=== PATIENT | female | born 1970 | race Hispanic/Latino ===

== ENCOUNTER 2016-10-21 21:18 | Observation (INO) | payer MEDICARE, OTHER ==
[2016-10-21 21:27] VITALS: BMI 36.1
--- NOTE | 2016-10-21 21:49 | ED PDOC ---
Arrival/HPI - General Time Seen by Provider: 10/21/16 21:22 Historian: Patient - History of Present Illness Narrative History of Present Illness (Text): 10/21/16 21:43 Jesenia Iglesias is a 46 year old female, with a history of pacemaker, hypertension, and vertigo, presents to the emergency department for evaluation of chest pain and palpitations which began earlier today. States that she was playing with her dog when the chest pain presented, which radiated along the right arm. Also complains of pain to right 2nd metacarpophalangeal joint, which is worsened with movement. States that presented to an urgent care for headache and was started started on Augmentin for sinusitis. Denies any trauma to hand. Denies any headache, dizziness, difficulty breathing, vomiting, diarrhea, urinary symptoms, or any other complaints at this time. PMD: Time/Duration: Other (earlier today ) Symptom Onset: Gradual Severity Level: Mild Activities at Onset: Light Context: Home Past Medical History - Provider Review Nursing Documentation Reviewed: Yes - Past History Past History: No Previous - Infectious Disease Hx of Infectious Diseases: None - Tetanus Immunization Tetanus Immunization: Unknown - Cardiac Hx Pacemaker: Yes - Pulmonary Hx Respiratory Disorders: No Hx Asthma: No Hx Bronchitis: No Hx Chronic Obstructive Pulmonary Disease (COPD): No Hx Emphysema: No Hx Pneumonia: No Hx Sleep Apnea: No - Neurological Hx Paralysis: No - HEENT Hx HEENT Disorder: Yes (chronic sinusitis) Hx Blind: No Hx Cataracts: No Hx Deafness: No Hx Difficulty Chewing: No Hx Epistaxis: No Hx Glaucoma: No Hx Macular Degeneration: No - Renal Hx Renal Disorder: No Hx Kidney Stones: No - Endocrine/Metabolic Hx Endocrine Disorders: No Hx Diabetes Mellitus Type 1: No Hx Diabetes Mellitus Type 2: No - Hematological/Oncological Hx Blood Transfusions: Yes Hx Blood Transfusion Reaction: No - Integumentary Hx Dermatological Disorder: No Hx Basal Cell Carcinoma: No Hx Eczema: No Hx Melanoma: No Hx Psoriasis: No Hx Squamous Cell Carcinoma: No - Musculoskeletal/Rheumatological Hx Musculoskeletal Disorders: Yes (FIBROMYALGIA) - Gastrointestinal Hx Gastrointestinal Disorders: Yes (irritable bowel) Hx Crohn's Disease: No Hx Diverticulitis: No Hx Gall Bladder Disease: No Hx Gastroesophageal Reflux: Yes Hx Pancreatitis: No - Genitourinary/Gynecological Hx Genitourinary Disorders: Yes (endometriosis) Hx Sexually Transmitted Diseases: No Hx Urinary Tract Infection: Yes (recurrent, dysuria) - Psychiatric Hx Emotional Abuse: No Hx Physical Abuse: No Hx Substance Use: No - Surgical History Hx Cardiac Catheterization: Yes (2008) - Anesthesia Hx Anesthesia Reactions: No Hx Malignant Hyperthermia: No - Suicidal Assessment Feels Threatened In Home Enviroment: No Family/Social History - Physician Review Nursing Documentation Reviewed: Yes Family/Social History: No Known Family HX Smoking Status: Former Smoker Hx Alcohol Use: No Hx Substance Use: No Hx Substance Use Treatment: No Allergies/Home Meds Allergies/Adverse Reactions: Allergies gabapentin Allergy (Verified 04/17/16 15:04) RASH metoclopramide HCl [From Reglan] Allergy (Verified 04/17/16 15:04) ANGIOEDEMA trimethobenzamide HCl [From Tigan] Allergy (Verified 04/17/16 15:04) ANGIOEDEMA Home Medications: Home Meds Medication Instructions Recorded Confirmed Levetiracetam [Keppra] 500 mg PO TID 06/01/15 10/22/16 Oxycodone HCl/Acetaminophen 1 tab PO QID PRN 06/01/15 10/22/16 [Percocet 325 mg-10 mg] PARoxetine [Paxil] 20 mg PO DAILY 06/01/15 10/22/16 clonazePAM [clonAZEPAM] 1 mg PO QID 06/01/15 10/22/16 Pregabalin [Lyrica] 75 mg PO TID 11/12/15 10/22/16 Acetaminophen/Butalbital/Caf 1 tab PO PRN PRN 04/17/16 10/22/16 [Fioricet] Omeprazole Magnesium [Prilosec Otc] 40 mg PO DAILY 04/17/16 10/22/16 Ibuprofen [Motrin Tab] 800 mg PO Q8 PRN 07/11/16 10/22/16 Cyclobenzaprine [Cyclobenzaprine 10 mg PO PRN PRN 10/22/16 10/22/16 HCl] Review of Systems - Physician Review All systems were reviewed & negative as marked: Yes - Review of Systems Constitutional: Normal. absent: Fatigue, Fevers Respiratory: Normal. absent: SOB, Cough Cardiovascular: Chest Pain, Palpitations Gastrointestinal: Nausea. absent: Diarrhea, Vomiting Genitourinary Female: Normal Musculoskeletal: Other (pain to second MCP. ) Neurological: Normal. absent: Headache, Dizziness Psychiatric: Normal Physical Exam Vital Signs Reviewed: Yes Vital Signs Temp Pulse Pulse Resp BP Pulse Ox 10/22/16 01:27 72 16 146/80 99 10/21/16 23:30 70 17 152/76 H 99 10/21/16 22:07 76 10/21/16 21:54 70 20 175/99 H 100 10/21/16 21:50 98.3 F Temperature: Afebrile Blood Pressure: Normal Pulse: Regular Respiratory Rate: Normal Appearance: Positive for: Well-Appearing, Non-Toxic, Comfortable Pain Distress: None Mental Status: Positive for: Alert and Oriented X 3 - Systems Exam Head: Present: Atraumatic, Normocephalic Pupils: Present: PERRL Extroacular Muscles: Present: EOMI Conjunctiva: Present: Normal Ears: Present: Normal Pharnyx: Present: Normal Nose (External): Present: Atraumatic Nose (Internal): Present: Normal Inspection Neck: Present: Normal Range of Motion Respiratory/Chest: Present: Clear to Auscultation, Good Air Exchange. No: Respiratory Distress, Accessory Muscle Use Cardiovascular: Present: Regular Rate and Rhythm, Normal S1, S2. No: Murmurs Abdomen: Present: Normal Bowel Sounds. No: Tenderness, Distention, Peritoneal Signs Upper Extremity: Present: NORMAL PULSES, Neurovascularly Intact, Other ( ecchymosis to 2nd MCP. ). No: Cyanosis, Edema, Erythema, Deformity Lower Extremity: Present: Normal Inspection. No: Edema Neurological: Present: GCS=15, CN II-XII Intact, Speech Normal, Motor Func Grossly Intact, Normal Sensory Function Skin: Present: Warm, Dry, Normal Color. No: Rashes Lymphatic: No: Cervical Adenopathy Psychiatric: Present: Alert, Oriented x 3, Normal Insight, Normal Concentration Medical Decision Making ED Course and Treatment: 10/21/16 21:59 Impression: A 46 year old female who presents to the emergency department complaining of chest pain radiating down right arm since earlier today. Plan: -- EKG -- Labs, cardiac enzymes -- Right hand X-ray -- Urinalysis Progress Notes: 10/21/16 21:30 EKG interpreted by me: NSR @ 87 bpm. possible left atrial enlargement. Left ventricular hypertrophy. X-Ray interpreted by me: Negative for any acute fracture. 10/22/16 01:05 Case discussed with who is aware and agrees with the plan to admit patient to telemetry for chest pain. Accepts patient under his service with on cardiology consult. - Lab Interpretations Lab Results: 10/21/16 22:00 10/21/16 22:00 Lab Results 10/21/16 22:20: Urine HCG, Qual Negative 10/21/16 22:00: Sodium 138, Potassium 3.6, Chloride 102, Carbon Dioxide 25, Anion Gap 15, BUN 16, Creatinine 0.8, Est GFR ( Amer) > 60, Est GFR (Non- Af Amer) > 60, Random Glucose 108, Calcium 9.0, Magnesium 2.0, Total Bilirubin 0.5, AST 42 H, ALT 58 H, Alkaline Phosphatase 99, Lactate Dehydrogenase 401, Total Creatine Kinase 93, Troponin I < 0.01, Total Protein 8.7 H, Albumin 4.4, Globulin 4.2, Albumin/Globulin Ratio 1.0 L 10/21/16 22:00: Urine Color Yellow, Urine Appearance Clear, Urine pH 6.0, Ur Specific [place] 1.025, Urine Protein 30 H, Urine Glucose (UA) Negative, Urine Ketones Negative, Urine Blood Trace-intact H, Urine Nitrate Negative, Urine Bilirubin Negative, Urine Urobilinogen 1.0 H, Ur Leukocyte Esterase Negative, Urine RBC 2 - 5, Urine WBC 0 - 2, Ur Epithelial Cells Many, Amorphous Sediment Few, Urine Bacteria Few 10/21/16 22:00: PT 10.4, INR 0.96, APTT 25.7, D-Dimer, Quantitative 0.21 10/21/16 22:00: WBC 11.3 H, RBC 5.92, Hgb 11.8 L, Hct 35.7 L, MCV 60.3 L, MCH 19.9 L, MCHC 33.1, RDW 17.6 H, Plt Count 326, MPV 9.2, Gran % 58.7, Lymph % ( Auto) 34.1, Millard % (Auto) 6.1 H, Eos % (Auto) 0.7 L, Baso % (Auto) 0.4, Gran # 6.66 H, Lymph # 3.9 H, Millard # 0.7 H, Eos # 0.1, Baso # 0.04 I have reviewed the lab results: Yes - RAD Interpretation Radiology Orders: 10/21/16 21:48 HAND RIGHT 3 VIEWS [RAD] Stat 10/21/16 22:58 CHEST ONE VIEW [RAD] Stat Transportation Dispatcher: Radiologist - EKG Interpretation Interpreted by ED Physician: Yes Type: 12 lead EKG - Medication Orders Current Medication Orders: Acetaminophen (Tylenol 325mg Tab) 650 mg PO Q4H PRN PRN Reason: Fever >100.5 F Discontinued Medications Clonazepam (Klonopin) 1 mg PO STAT STA PRN Reason: Protocol Stop: 10/22/16 02:35 Ketorolac Tromethamine (Toradol) 30 mg IVP ONCE ONE Stop: 10/21/16 22:54 Last Admin: 10/21/16 23:13 Dose: 30 mg Morphine Sulfate (Morphine) 2 mg IVP STAT STA Stop: 10/22/16 00:57 Last Admin: 10/22/16 01:25 Dose: 2 mg - Toyinibe Statement The provider has reviewed the documentation as recorded by the Simi Sauer Provider Attestation: All medical record entries made by the Simi were at my direction and personally dictated by me. I have reviewed the chart and agree that the record accurately reflects my personal performance of the history, physical exam, medical decision making, and the department course for this patient. I have also personally directed, reviewed, and agree with the discharge instructions and disposition. Disposition/Present on Arrival - Present on Arrival Any Indicators Present on Arrival: No History of DVT/PE: No History of Uncontrolled Diabetes: No Urinary Catheter: No History Surgical Site Infection Following: None - Disposition Have Diagnosis and Disposition been Completed?: Yes Diagnosis: Chest pain Disposition: HOSPITALIZED Disposition Time: :00 Condition: GOOD
[2016-10-21 22:08] LABS: ADD MANUAL DIFF? NO
[2016-10-21 22:13] LABS: BASO # 0.04 K/mm3 (0.0-2.0); BASO % 0.4 % (0.0-3.0); EOS # 0.1 (0.0-0.7); EOS % 0.7 % (1.5-5.0); GRAN # 6.66 (1.4-6.5); GRAN % 58.7 % (50.0-68.0); HEMATOCRIT 35.7 % (36.0-48.0); LYMPH # 3.9 (1.2-3.4); LYMPH % 34.1 % (22.0-35.0); MEAN CELL VOLUME 60.3 fL (80.0-105.0); MEAN CORPUSCULAR HEMOGLOBIN 19.9 pg (25.0-35.0); MEAN CORPUSCULAR HGB CONC 33.1 g/dl (31.0-37.0); MEAN PLATELET VOLUME 9.2 fl (7.0-11.0); MONO # 0.7 (0.1-0.6); MONO % 6.1 % (1.0-6.0); PLATELET COUNT 326 10^3/uL (120.0-450.0); RED CELL DISTRIBUTION WIDTH 17.6 % (11.5-14.5); WHITE BLOOD COUNT 11.3 10^3/ul (4.5-11.0)
[2016-10-21 22:16] LABS: URINE BILIRUBIN NEGATIVE (NEGATIVE); URINE BLOOD TRACE-INTACT (NEGATIVE); URINE GLUCOSE (UA) NEGATIVE (NEGATIVE); URINE KETONE NEGATIVE (NEGATIVE); URINE LEUKOCYTE ESTERASE NEGATIVE Leu/uL (NEGATIVE); URINE PROTEIN 30 mg/dL (<30 mg/dL)
[2016-10-21 22:18] LABS: URINE APPEARANCE CLEAR (CLEAR); URINE COLOR YELLOW (YELLOW)
[2016-10-21 22:23] LABS: ALKALINE PHOSPHATASE 99 U/L (38-133); ALT/SGPT 58 U/L (7-56); AST/SGOT 42 U/L (15-39); BILIRUBIN,TOTAL 0.5 mg/dL (0.2-1.3); BLOOD UREA NITROGEN 16 mg/dL (7-21); CARBON DIOXIDE 25 mmol/L (21-33); CHLORIDE 102 mmol/L (98-107); GFR AFRICAN-AMERICAN > 60; GLUCOSE,RANDOM 108 mg/dL (70-110); POTASSIUM 3.6 mmol/L (3.6-5.0); SODIUM 138 mmol/L (132-148); TOTAL PROTEIN 8.7 g/dL (5.8-8.3)
[2016-10-21 22:25] LABS: INR 0.96 (0.93-1.08); PARTIAL THROMBOPLASTIN TIME 25.7 Seconds (23.7-30.8)
[2016-10-21 22:33] LABS: D DIMER 0.21 mg/L FEU (0-0.50)
[2016-10-21 22:39] LABS: TROPONIN I < 0.01 ng/mL; URINE AMORPHOUS SEDIMENT FEW; URINE BACTERIA FEW (NEG); URINE EPITHELIAL CELLS MANY /hpf (0-5); URINE WBC 0 - 2 /hpf (0-6)
[2016-10-22] MEDS ORDERED: Morphine 2 mg/ml ISec IVP STA (00:56)
[2016-10-22 02:53] VITALS: RESP 20
[2016-10-22 05:38] VITALS: O2SAT 95
[2016-10-22] MEDS ORDERED: Apap-Butalbital-Caffeine 325-50-40mg Tab PO PRN (06:12)
[2016-10-22] MEDS ORDERED: Oxycodone/Acetaminophen 10/325 mg Tab PO PRN (06:12)
--- NOTE | 2016-10-22 07:07 | RAD ---
PROCEDURE: Right Hand Radiographs. HISTORY: pain COMPARISON: None. FINDINGS: BONES: Normal. No fracture. JOINTS: Minimal distal interphalangeal joint narrowing suggestive. No significant appearing spurring appreciated. No erosions noted No osteoarthritic changes. SOFT TISSUES: Normal. OTHER FINDINGS: None. IMPRESSION: Findings consistent with early mild degenerative changes -joint-space narrowing. No fracture bone destruction. No erosions appreciated
--- NOTE | 2016-10-22 07:15 | RAD ---
PROCEDURE: CHEST RADIOGRAPH, 1 VIEW HISTORY: pain COMPARISON: 07/06/2016 FINDINGS: LUNGS: Clear. Shallow lung volumes PLEURA: No pneumothorax or pleural fluid seen. CARDIOVASCULAR: Limited assessment given shallow lung volumes - OSSEOUS STRUCTURES: No significant abnormalities. VISUALIZED UPPER ABDOMEN: Normal. OTHER FINDINGS: Two lead pacemaker device. Anterior cervical fusion hardware IMPRESSION: No active disease.
[2016-10-22 09:48] LABS: TROPONIN I 0.01 ng/mL
--- NOTE | 2016-10-22 12:59 | CARD ---
APPROVED REPORT EKG Measurement Heart [id number] <Conclusion> Normal sinus rhythm Possible Left atrial enlargement Left ventricular hypertrophy Abnormal ECG
[2016-10-22 21:30] VITALS: BP 165/76; PULSE 78; TEMP 98.4
--- NOTE | 2016-10-23 00:11 | HP ---
CHIEF COMPLAINT AND HISTORY OF PRESENT ILLNESS: This is a 46-year-old female, who came in complainin g of chest pain. She says that she was having chest tightness that gets better and gets worse. She sometimes has palpitations. She has been recently treated with steroids and antibiotics for congesti on. She had missed her medication and missed her appointment on Thursday. She says that she does not have her home medications. She has been to an urgent care center because of headaches. She says she also has sinus symptoms. She has no nausea. No vomiting. No dysuria, frequency. No nocturia. REVIEW OF SYMPTOMS: All other review of systems are within normal limits except as mentioned. ALLERGIES: METOCLOPRAMIDE, GABAPENTIN, TIGAN. HOME MEDICATIONS: Keppra, Percocet, Paxil, clonazepam, Lyrica, Fioricet, Prilosec, Motrin, cyclobenz aprine. SOCIAL HISTORY: She is a former smoker. She denies alcohol or drug abuse. PAST MEDICAL HISTORY: Fibromyalgia, pacemaker, spinal stenosis, frequent UTIs, chronic sinusitis, , irritable bowel sy ndrome, endometriosis, depression, anxiety, plantar fasciitis. PAST SURGICAL HISTORY: 1. Cardiac cath. 2. Appendectomy. 3. Neck surgery. 4. Back surgery. 5. Foot surgery. 6. Right oophorectomy. 7. Cervical fusions at C3, C4, C5, C6, C7. 8. Left knee surgery . PHYSICAL EXAMINATION: VITAL SIGNS: She has a temperature of , pulse is 72, blood pressure is 137/7 . Height is 5 feet 2 inches. Weight 214 pounds. BMI 35. GENERAL: Patient lying in bed, flat, and in no apparent distress. HEAD AND NECK EXAM: Atraumatic, normocephalic. Conjunctivae are pink. Throat clear and mouth with moist mucosa. Oropharynx benign. EYES: Extraocular movements are intact. PERRLA. NECK: Supple. No JVD, thyromegaly, or adenopathy. No bruits. HEART: S1 and S2 regular rate and rhythm. No murmurs, rubs, or gallops. LUNGS: Clear to auscultation bilaterally. No wheezing rales or rhonchi appreciated. No retraction s on exam. ABDOMEN: Soft, nontender, nondistended. Bowel sounds are positive in all quadrants. No rebound. No hepatosplenomegaly. EXTREMITIES: No cyanosis, clubbing, or edema. NEURO: No facial asymmetry, tongue is midline, no uvula deviation. Power is 5/5 in upper extremity and 5/5 in lower extremity. Sensation is normal in upper extremity and lower extremity. PSYCH: Awake, alert, oriented x3. No anxiety or depression symptoms. Good insight. Normal affec t. : No CVA tenderness VASCULAR: 2+ pulses in carotid and pedal pulses. SKIN: No erythema or abnormal nodules noted. SPINE: Normal curvature. LYMPHADENOPATHY: No anterior cervical or posterior cervical adenopathy. No inguinal adenopathy. LABORATORY DATA: She has a white count of 11.3, hemoglobin 11.8. INR is 0.96. Chemistry shows a so dium of 138, potassium 3.6, creatinine 0.8. She has an LDL of 162. Triglycerides 338. Urine shows ketones are negative, blood is trace, nitrites are negative. X-ray of the hand shows findings consistent with early, mild degenerative joint narrowing. EKG shows sinus rhythm at 87 with left ventricular hypertrophy. Chest x-ray shows no active disease. ASSESSMENT: 1. Chest pain, atypical. 2. Fibromyalgia. 3. Chronic sinusitis. 4. Irritable bowel syndrome. 5. Anxiety. 6. Pacemaker. 7. Anemia with a history of thalassemia. PLAN: The patient has been on clonazepam. She is on Lipitor for dyslipidemia. She is on Lyrica. S he is going to continue with Paxil. She is receiving Tylenol as needed. I gave her a prescription f or Percocet for 2 weeks. I also called in her prescriptions to her pharmacy. She is going to follow up in the office in 1-2 weeks. She is going to be discharged home. I did speak to Dr. Faye. He cl eared the patient to be discharged. Labs were reviewed. Felice Zuleta MD cc: [id number] TT: 10/23/2016 00:09:55 tn
--- NOTE | 2016-10-23 00:56 | CON ---
DATE: 10/22/2016 REASON FOR CONSULTATION AND FOLLOWUP: Chest pain. History of nonobstructive coronary artery disease status post recent cath status post pacemaker. BRIEF CLINICAL HISTORY: The patient is a 46-year-old female with a past medical history significant for seizure disorder, hypertension, chronic back pain, history of cervical radiculopathy, history of cervical plating in 2000, endometriosis, migraine, anxiety disorder, spinal stenosis, chronic bronchi tis, chronic urinary tract infection, CVA, history of pacemaker a year ago at [facility], admitted with dizziness and a complaint of chest pain, complains of sharp chest pain, left shoul rogelio and right side of the chest as well. PAST MEDICAL HISTORY: Significant for seizure disorder, chronic pain in the body, chronic dizziness, hypertension, cervical and lumbar radiculopathy, status post cervical plating in 2000, intermittent migraine, anxiety disorder, recurrent UTIs, CVA, chronic bronchitis, sinusitis, status post permanent pacemaker, history of spinal stenosis, fibromyalgia, history of pacemaker interrogation recently in 06/2016 found to have normal functioning pacemaker, no evidence of syncope, no evidence of arrhythmia , history of pacemaker a year ago at [facility]. PREVIOUS CARDIAC WORKUP: As follows. Most recently, the patient had a cardiac catheterization, 06/29 that showed nonobstructive coronary artery disease, mild to moderate dizziness, mid LAD proxim al, RCA moderate disease in the ramus 55%, preserved LV function, essentially nonobstructive coronary artery disease. The patient had a stress test 07/10/2016 that was suspicious for ischemia the led t o the cardiac catheterization, ejection fraction of 64% reported. The patient had echocardiography 0 08/28/2014 that shows a normal ejection fraction within normal limits. SOCIAL HISTORY: Denies smoking. Denies any history of alcohol abuse. CURRENT MEDICATIONS: The patient is taking Paxil, clonazepam, Lyrica, acetaminophen, Prilosec, Keppr a, Motrin, cyclobenzaprine, albuterol, Fioricet. REVIEW OF SYSTEMS: As per HPI. PHYSICAL EXAMINATION: VITAL SIGNS: Temperature afebrile, heart rate 72, blood pressure 137/73. HEENT: PERRLA. Extraocular muscles intact. NECK: Supple. No carotid bruits. No thyromegaly. CHEST: Clear to auscultation. HEART: S1, S2 regular. ABDOMEN: Soft. EXTREMITIES: Clubbing and cyanosis negative. LABORATORY DATA: Blood workup as follows: WBC , hemoglobin 11.8, hematocrit 35.7, platelet cou nt 326. Chemistry shows sodium 138, potassium 3.7, chloride , BUN 16, creatinine 0.8. Troponin 0.01 x 2. IMPRESSION: Atypical chest pain, multiple medical problems, history of chronic sinusitis, UTI, sever e cervical radiculopathy, status post cardiac catheterization recently dated 07/14/2016, nonobstructi ve coronary artery disease, preserved left ventricular function, history of permanent pacemaker at [facility], recent interrogation pacemaker, normal function and reported. RECOMMENDATION: We will add third sets of troponin. We will add lipid profile, TSH, hemoglobin A1c. Further recommendation after the blood workup. We will get a TSH also and hemoglobin A1c. If the troponin remains negative, we will discontinue telemetry. Sam Faye MD cc: [id number] TT: 10/23/2016 00:55:30 Confirmation # [id number] Dictation # [id number] mn
== END 2016-10-22 20:10 | disposition home or self-care (01) ==
LOC: ED 21:18 → ERH 10-22 00:34 → 2RSO 10-22 02:03
PROVIDERS: ADMIT Internal Medicine Nephrology; ATTEND Internal Medicine Nephrology
DX: R07.89 Other chest pain (principal); K58.9 Irritable bowel syndrome, unspecified; I25.10 Atherosclerotic heart disease of native coronary artery without angina pectoris; D56.9 Thalassemia, unspecified; E78.5 Hyperlipidemia, unspecified; M72.2 Plantar fascial fibromatosis; M48.02 Spinal stenosis, cervical region; F32.9 Major depressive disorder, single episode, unspecified; G40.909 Epilepsy, unspecified, not intractable, without status epilepticus; M54.16 Radiculopathy, lumbar region; J32.9 Chronic sinusitis, unspecified; M79.7 Fibromyalgia; M54.12 Radiculopathy, cervical region; F41.9 Anxiety disorder, unspecified; G43.909 Migraine, unspecified, not intractable, without status migrainosus; Z87.891 Personal history of nicotine dependence; Z95.0 Presence of cardiac pacemaker
CPT/HCPCS: 36415; 71010; 73130; 80053; 80061; 81001; 82550; 83036; 83615; 83735; 84443; 84484; 84703; 85025; 85378; 85610; 85730; 93005; 96374; 99285; G0378; J1885; J2270; J2405

== ENCOUNTER 2016-12-04 19:07 | Observation (INO) | payer MEDICARE, OTHER ==
[2016-12-04 19:22] VITALS: BMI 35.7
[2016-12-04] MEDS ORDERED: Morphine 4 mg/ml ISec IVP STA (20:21)
[2016-12-04] MEDS ORDERED: Sodium Chloride 0.9% 1,000 ML IV STA (20:23)
[2016-12-04 20:40] LABS: ADD MANUAL DIFF? NO
[2016-12-04 20:50] LABS: BASO # 0.02 K/mm3 (0.0-2.0); BASO % 0.2 % (0.0-3.0); EOS # 0.2 (0.0-0.7); EOS % 2.1 % (1.5-5.0); GRAN % 42.1 % (50.0-68.0); HEMATOCRIT 33.6 % (36.0-48.0); LYMPH % 48.9 % (22.0-35.0); MEAN CELL VOLUME 60.8 fL (80.0-105.0); MEAN CORPUSCULAR HEMOGLOBIN 19.7 pg (25.0-35.0); MEAN CORPUSCULAR HGB CONC 32.4 g/dl (31.0-37.0); MONO # 0.5 (0.1-0.6); MONO % 6.7 % (1.0-6.0); PH,URINE 6.5 (4.7-8.0); PLATELET COUNT 305 10^3/uL (120.0-450.0); URINE BILIRUBIN NEGATIVE (NEGATIVE); URINE BLOOD NEGATIVE (NEGATIVE); URINE GLUCOSE (UA) NEGATIVE (NEGATIVE); URINE KETONE NEGATIVE (NEGATIVE); URINE LEUKOCYTE ESTERASE NEGATIVE Leu/uL (NEGATIVE); URINE PROTEIN NEGATIVE mg/dL (<30 mg/dL); URINE UROBILINOGEN 0.2 E.U./dL (<1 E.U./dL); WHITE BLOOD COUNT 8.1 10^3/ul (4.5-11.0)
[2016-12-04 20:54] LABS: ALB/GLOB RATIO 1.1 (1.1-1.8); ALKALINE PHOSPHATASE 86 U/L (38-133); ALT/SGPT 53 U/L (7-56); AST/SGOT 49 U/L (15-39); BILIRUBIN,TOTAL 0.3 mg/dL (0.2-1.3); BLOOD UREA NITROGEN 14 mg/dL (7-21); CALCIUM 9.1 mg/dL (8.4-10.5); CARBON DIOXIDE 23 mmol/L (21-33); CHLORIDE 105 mmol/L (98-107); GFR AFRICAN-AMERICAN > 60; GLUCOSE,RANDOM 82 mg/dL (70-110); MAGNESIUM 1.9 mg/dL (1.7-2.2); POTASSIUM 3.8 mmol/L (3.6-5.0); SODIUM 137 mmol/L (132-148); TOTAL PROTEIN 7.8 g/dL (5.8-8.3)
[2016-12-04 20:56] LABS: URINE APPEARANCE CLEAR (CLEAR); URINE COLOR YELLOW (YELLOW)
[2016-12-04 21:12] LABS: TROPONIN I < 0.01 ng/mL
--- NOTE | 2016-12-04 23:29 | CT ---
EXAM: CT Head Without Intravenous Contrast CLINICAL HISTORY: 46 years old, female; Pain; Headache TECHNIQUE: Axial computed tomography images of the head/brain without intravenous contrast. This CT exam was performed using one or more of the following dose reduction techniques: automated exposure control, adjustment of the mA and/or kV according to patient size, and/or use of iterative reconstruction technique. COMPARISON: CT - HEAD W/O CONTRAST 07/06/2016 4:31:25 PM FINDINGS: Brain: No intracranial hemorrhage. No mass. No definite edema. Ventricles: No hydrocephalus. Bones/joints: No calvarial fracture. Soft tissues: Unremarkable. Mastoid air cells: No mastoid effusion. IMPRESSION: 1. No acute intracranial abnormality. 2. See sinus CT report for additional details. 3. Incidental/non-acute findings are described above.
--- NOTE | 2016-12-04 23:30 | CT ---
EXAM: CT Maxillofacial Sinuses Without Intravenous Contrast CLINICAL HISTORY: 46 years old, female; Pain; Face pain TECHNIQUE: Computed tomography images of the maxillofacial sinuses without intravenous contrast. This CT exam was performed using one or more of the following dose reduction techniques: automated exposure control, adjustment of the mA and/or kV according to patient size, and/or use of iterative reconstruction technique. Coronal and sagittal reformatted images were created and reviewed. COMPARISON: No relevant prior studies available. FINDINGS: Maxillary sinuses: Unremarkable. No air-fluid levels. Sphenoid sinuses: Unremarkable. No air-fluid levels. Frontal sinuses: Unremarkable. No air-fluid levels. Ethmoid air cells: Unremarkable. No air-fluid levels. Nasal cavity/septum: No acute findings. Bones/joints: No acute fracture. Soft tissues: Unremarkable. Orbits: Unremarkable as visualized. IMPRESSION: 1.No acute findings. 2.Non-acute findings are described above.
[2016-12-04] MEDS ORDERED: Sodium Chloride 0.9% 1,000 ML IV SCH (23:45)
--- NOTE | 2016-12-04 23:55 | ED PDOC ---
Arrival/HPI - General Chief Complaint: Dizziness/Lightheaded Time Seen by Provider: 12/04/16 19:52 Historian: Patient - History of Present Illness Narrative History of Present Illness (Text): 12/05/16 00:20 Jesenia Iglesias is a 46 year old female, with a history of seizures on Keppra and Klonopin, presents to the emergency department complaining following a syncopal episode at 3 pm today. Patient states that she was walking out of the bathroom when she began feeling room-spinning sensation and dizzy. Patient woke up on the floor after feeling dizzy and does not recall the events that transpired after. She complains of a headache and thinks she may have hit her head during the fall. States that symptoms this time are different from previous episodes of seizures as she does not feel dizzy before seizing. Informs she has flu-like symptoms 2-3 weeks ago and was diagnosed with UTI and sinusitis by PMD. She finished a course of antibiotics prescribed by her PMD. Currently patient is complaining of frontal head pressure, nasal congestion, nausea and dysuria. Denies any fever, chills, chest pain, shortness of breath, abdominal pain, vomiting, diarrhea, or any other complaints at this time. 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: Time/Duration: Other (3 pm today ) Symptom Onset: Sudden Symptom Course: Improving Severity Level: Mild Activities at Onset: Light Past Medical History - Provider Review Nursing Documentation Reviewed: Yes - Past History Past History: No Previous - Infectious Disease Hx of Infectious Diseases: None - Tetanus Immunization Tetanus Immunization: Unknown - Cardiac Hx Pacemaker: Yes - Pulmonary Hx Respiratory Disorders: No Hx Asthma: No Hx Bronchitis: No Hx Chronic Obstructive Pulmonary Disease (COPD): No Hx Emphysema: No Hx Pneumonia: No Hx Sleep Apnea: No - Neurological Hx Paralysis: No - HEENT Hx HEENT Disorder: Yes (chronic sinusitis) Hx Blind: No Hx Cataracts: No Hx Deafness: No Hx Difficulty Chewing: No Hx Epistaxis: No Hx Glaucoma: No Hx Macular Degeneration: No - Renal Hx Renal Disorder: No Hx Kidney Stones: No - Endocrine/Metabolic Hx Endocrine Disorders: No Hx Diabetes Mellitus Type 1: No Hx Diabetes Mellitus Type 2: No - Hematological/Oncological Hx Blood Transfusions: Yes Hx Blood Transfusion Reaction: No - Integumentary Hx Dermatological Disorder: No Hx Basal Cell Carcinoma: No Hx Eczema: No Hx Melanoma: No Hx Psoriasis: No Hx Squamous Cell Carcinoma: No - Musculoskeletal/Rheumatological Hx Musculoskeletal Disorders: Yes (FIBROMYALGIA) - Gastrointestinal Hx Gastrointestinal Disorders: Yes (irritable bowel) Hx Crohn's Disease: No Hx Diverticulitis: No Hx Gall Bladder Disease: No Hx Gastroesophageal Reflux: Yes Hx Pancreatitis: No - Genitourinary/Gynecological Hx Genitourinary Disorders: Yes (endometriosis) Hx Sexually Transmitted Diseases: No Hx Urinary Tract Infection: Yes (recurrent, dysuria) - Psychiatric Hx Emotional Abuse: No Hx Physical Abuse: No Hx Substance Use: No - Surgical History Hx Cardiac Catheterization: Yes (2008) - Anesthesia Hx Anesthesia Reactions: No Hx Malignant Hyperthermia: No - Suicidal Assessment Feels Threatened In Home Enviroment: No Family/Social History - Physician Review Nursing Documentation Reviewed: Yes Family/Social History: No Known Family HX Smoking Status: Former Smoker Hx Alcohol Use: No Hx Substance Use: No Hx Substance Use Treatment: No Allergies/Home Meds Allergies/Adverse Reactions: Allergies gabapentin Allergy (Verified 04/17/16 15:04) RASH metoclopramide HCl [From Reglan] Allergy (Verified 04/17/16 15:04) ANGIOEDEMA trimethobenzamide HCl [From Tigan] Allergy (Verified 04/17/16 15:04) ANGIOEDEMA Home Medications: Home Meds Medication Instructions Recorded Confirmed Levetiracetam [Keppra] 500 mg PO TID 06/01/15 10/22/16 Oxycodone HCl/Acetaminophen 1 tab PO QID PRN 06/01/15 10/22/16 [Percocet 325 mg-10 mg] PARoxetine [Paxil] 20 mg PO DAILY 06/01/15 10/22/16 clonazePAM [clonAZEPAM] 1 mg PO QID 06/01/15 10/22/16 Pregabalin [Lyrica] 75 mg PO TID 11/12/15 10/22/16 Acetaminophen/Butalbital/Caf 1 tab PO PRN PRN 04/17/16 10/22/16 [Fioricet] Omeprazole Magnesium [Prilosec Otc] 40 mg PO DAILY 04/17/16 10/22/16 Ibuprofen [Motrin Tab] 800 mg PO Q8 PRN 07/11/16 10/22/16 Cyclobenzaprine [Cyclobenzaprine 10 mg PO PRN PRN 10/22/16 10/22/16 HCl] Review of Systems - Physician Review All systems were reviewed & negative as marked: Yes - Review of Systems Constitutional: Normal. absent: Fatigue, Fevers ENT: Other (nasal congestion ) Respiratory: absent: SOB, Cough, Sputum Cardiovascular: Syncope. absent: Chest Pain, Palpitations Gastrointestinal: Nausea. absent: Abdominal Pain, Vomiting, Appetite Changes Genitourinary Female: Dysuria. absent: Frequency Neurological: Headache, Dizziness Psychiatric: Normal Physical Exam Vital Signs Reviewed: Yes Vital Signs Temp Pulse Resp BP Pulse Ox 12/04/16 23:53 61 16 129/77 99 12/04/16 20:15 60 16 126/76 99 12/04/16 19:08 97.9 F 64 16 151/73 H 99 Temperature: Afebrile Blood Pressure: Normal Pulse: Regular Respiratory Rate: Normal Appearance: Positive for: Well-Appearing, Non-Toxic, Comfortable Pain Distress: Mild Mental Status: Positive for: Alert and Oriented X 3 - Systems Exam Head: Present: Atraumatic, Normocephalic, Tenderness (frontal maxillary sinus tenderness ) Pupils: Present: PERRL Extroacular Muscles: Present: EOMI Conjunctiva: Present: Normal Mouth: Present: Dry Neck: Present: Normal Range of Motion. No: MIDLINE TENDERNESS, Paraspinal Tenderness Respiratory/Chest: Present: Clear to Auscultation, Good Air Exchange. No: Respiratory Distress, Accessory Muscle Use Cardiovascular: Present: Regular Rate and Rhythm, Normal S1, S2. No: Murmurs Abdomen: Present: Normal Bowel Sounds. No: Tenderness, Distention, Peritoneal Signs Upper Extremity: Present: Normal Inspection. No: Cyanosis, Edema Lower Extremity: Present: Normal Inspection. No: Edema Neurological: Present: GCS=15, Speech Normal, Other (horizontal nystagmus ) Skin: Present: Warm, Dry, Normal Color. No: Rashes Psychiatric: Present: Alert, Oriented x 3, Normal Insight, Normal Concentration Medical Decision Making ED Course and Treatment: Impression: A 46 year old female who presents to the emergency department complaining of dizziness and syncope. Plan: -- EKG -- CT Head -- Labs, cardiac enzymes -- Chest X-ray -- Morphine -- IV fluids -- Urine culture -- Reassess and disposition Progress Notes: EKG: Electronic ventricular paced rhythm at 80 bpm, as read by PA. CXR : NAD, as read by PA CT head and CT sinuses show no acute findings, especially no sinusitis. Laboratory results reviewed, Hgb 10.9 / Hct 33.6, trop negative. Diagnostic results discussed with the patient in great detail. On reevaluation, patient is laying in bed comfortably in no acute distress. Patient continues to complain of mild headache and facial pain. Vital signs are stable. Patient given a dose of Toradol IV, IV fluids continued. Based on history, exam and diagnostic results plan will be for inpatient telemetry observation. Patient states she fully agrees with and understands the current plan of care. I have given the patient opportunity to ask any additional questions. Case d/w Dr. Zuleta, agrees with plan for inpatient observation telemetry. Bridge orders placed, consult placed to Dr. Licona. - Lab Interpretations Lab Results: 12/04/16 20:20 12/04/16 20:20 Lab Results 12/04/16 20:20: Sodium 137, Potassium 3.8, Chloride 105, Carbon Dioxide 23, Anion Gap 13, BUN 14, Creatinine 0.8, Est GFR ( Amer) > 60, Est GFR (Non- Af Amer) > 60, Random Glucose 82, Calcium 9.1, Magnesium 1.9, Total Bilirubin 0.3, AST 49 H, ALT 53, Alkaline Phosphatase 86, Lactate Dehydrogenase 374, Total Creatine Kinase 108, Troponin I < 0.01, Total Protein 7.8, Albumin 4.2, Globulin 3.7, Albumin/Globulin Ratio 1.1 12/04/16 20:20: Urine Color Yellow, Urine Appearance Clear, Urine pH 6.5, Ur Specific Midnight <= 1.005, Urine Protein Negative, Urine Glucose (UA) Negative, Urine Ketones Negative, Urine Blood Negative, Urine Nitrate Negative, Urine Bilirubin Negative, Urine Urobilinogen 0.2, Ur Leukocyte Esterase Negative 12/04/16 20:20: WBC 8.1 D, RBC 5.53, Hgb 10.9 L, Hct 33.6 L, MCV 60.8 L, MCH 19.7 L, MCHC 32.4, RDW 17.0 H, Plt Count 305, Gran % 42.1 L, Lymph % (Auto) 48.9 H, [place] % (Auto) 6.7 H, Eos % (Auto) 2.1, Baso % (Auto) 0.2, Gran # 3.40, Lymph # 4.0 H, [place] # 0.5, Eos # 0.2, Baso # 0.02 - RAD Interpretation Narrative RAD Interpretations (Text): 12/04/16 23:32 CT head w/o contrast: COMPARISON: CT - HEAD W/O CONTRAST 07/06/2016 4:31:25 PM FINDINGS: Brain: No intracranial hemorrhage. No mass. No definite edema. Ventricles: No hydrocephalus. Bones/joints: No calvarial fracture. Soft tissues: Unremarkable. Mastoid air cells: No mastoid effusion. IMPRESSION: 1. No acute intracranial abnormality. 2. See sinus CT report for additional details. 3. Incidental/non-acute findings are described above. Dictated and Authenticated by: Karthik Sutherland MD 12/04/2016 11:28 PM Eastern Time ([place] & [place]) CT sinuses w/o contrast: COMPARISON: No relevant prior studies available. FINDINGS: Maxillary sinuses: Unremarkable. No air-fluid levels. Sphenoid sinuses: Unremarkable. No air-fluid levels. Frontal sinuses: Unremarkable. No air-fluid levels. Ethmoid air cells: Unremarkable. No air-fluid levels. Nasal cavity/septum: No acute findings. Bones/joints: No acute fracture. Soft tissues: Unremarkable. Orbits: Unremarkable as visualized. IMPRESSION: 1. No acute findings. 2. Non-acute findings are described above. Dictated and Authenticated by: Karthik Sutherland MD 12/04/2016 11:30 PM Eastern Time ([place] & [place]) Radiology Orders: 12/04/16 19:53 HEAD W/O CONTRAST [CT] Stat 12/04/16 20:21 CHEST PORTABLE [RAD] Stat 12/04/16 20:23 SINUSES W/O CONTRAST [CT] Stat - Medication Orders Current Medication Orders: Sodium Chloride (Sodium Chloride 0.9%) 1,000 mls @ 100 mls/hr IV .Q10H ARTEMIO Last Admin: 12/05/16 01:53 Dose: 100 mls/hr Discontinued Medications Sodium Chloride (Sodium Chloride 0.9%) 1,000 mls @ 1,000 mls/hr IV .Q1H STA Stop: 12/04/16 21:22 Last Admin: 12/04/16 20:38 Dose: 1,000 mls/hr Ketorolac Tromethamine (Toradol) 30 mg IVP STAT STA Stop: 12/04/16 23:34 Last Admin: 12/05/16 00:52 Dose: 30 mg Morphine Sulfate (Morphine) 4 mg IVP STAT STA Stop: 12/04/16 20:22 Last Admin: 12/04/16 20:39 Dose: 4 mg - PA / ASSIGNMENT DESK ASSISTANT / Resident Statement MD/DO has reviewed & agrees with the documentation as recorded. Disposition/Present on Arrival - Present on Arrival Any Indicators Present on Arrival: No History of DVT/PE: No History of Uncontrolled Diabetes: No Urinary Catheter: No History of Decub. Ulcer: No History Surgical Site Infection Following: None - Disposition Have Diagnosis and Disposition been Completed?: Yes Diagnosis: Dizziness, Syncope Disposition: HOSPITALIZED Disposition Time: 23:45 Patient Plan: Observation (telemetry) Patient Problems: Current Active Problems Problem Status Onset Dizziness Acute Condition: STABLE
--- NOTE | 2016-12-05 03:53 | CP.PCM.PN ---
Subjective - Date & Time of Evaluation Date of Evaluation: 12/05/16 Time of Evaluation: 03:52 - Subjective Subjective: Patient was seen at bedside.Complained of headache, neck pain, all body pain, states that she has chronic pain problem and takes multiple pain medications at home, has metal plate in back of head and neck, can not sleep now because of pain and requests pain medication. Has received morphine and toradol earlier . Medical record was reviewed. This 46 year old white woman was admitted after she had a syncopal episode yesterday with dizziness. Has PMH of Seizure , HTN, CAD, chronic pain, chronic dizziness, cervical / Lumbar radiculopathy, CVA, migraines, UTI, anxiety, S/P PPM, chronic bronchitis , sinusitis, spinal stenosis. Objective - Vital Signs/Intake and Output Vital Signs (last 24 hours): Temp Pulse Resp BP Pulse Ox 97.9 F 60 14 146/81 97 12/04/16 19:08 12/05/16 02:45 12/05/16 02:45 12/05/16 02:45 12/05/16 02:45 - Medications Medications: Current Medications Sodium Chloride (Sodium Chloride 0.9%) 1,000 mls @ 100 mls/hr IV .Q10H ARTEMIO Last Admin: 12/05/16 01:53 Dose: 100 mls/hr - Constitutional Appears: Well, In Acute Distress - Head Exam Head Exam: ATRAUMATIC, NORMAL INSPECTION, NORMOCEPHALIC - Eye Exam Eye Exam: Normal appearance - ENT Exam ENT Exam: TM's Normal Bilaterally - Neck Exam Neck Exam: Normal Inspection - Respiratory Exam Respiratory Exam: NORMAL BREATHING PATTERN - Cardiovascular Exam Cardiovascular Exam: absent: JVD - GI/Abdominal Exam GI & Abdominal Exam: absent: Distended - Rectal Exam Rectal Exam: Deferred - Extremities Exam Extremities Exam: Normal Inspection - Back Exam Back Exam: NORMAL INSPECTION - Neurological Exam Neurological Exam: Alert, Awake - Psychiatric Exam Psychiatric exam: Normal Affect, Normal Mood - Skin Skin Exam: Normal Color Assessment and Plan - Assessment and Plan (Free Text) Assessment: Headache. Cervical pain. Body aches. Chronic sinusitis. Cervical/Lumbar radiculopathy. HTN. CAD. S/P PPM. Spinal stenosis. Chronic migraines. Seizures. Plan: Percocet 325/10 I PO stat. Continue present management.
[2016-12-05] MEDS ORDERED: Oxycodone/Acetaminophen 10/325 mg Tab PO STA (04:02)
[2016-12-05] MEDS: Pantoprazole 40 mg EC Tab PO SCH (06:31)
--- NOTE | 2016-12-05 09:14 | RAD ---
HISTORY: dizziness COMPARISON: 10/21/2016 FINDINGS: LUNGS: No active pulmonary disease. PLEURA: No significant pleural effusion identified, no pneumothorax apparent. CARDIOVASCULAR: Normal. OSSEOUS STRUCTURES: No significant abnormalities. VISUALIZED UPPER ABDOMEN: Normal. OTHER FINDINGS: Dual lead pacemaker IMPRESSION: No active disease.
[2016-12-05] MEDS: Oxycodone/Acetaminophen 10/325 mg Tab PO PRN ×2 (09:52→22:13)
--- NOTE | 2016-12-05 10:25 | HP ---
CHIEF COMPLAINT AND HISTORY OF PRESENT ILLNESS: This is a 46-year-old female who is coming in to the hospital complaining of dizziness and lightheadedness. She has a history of seizures; she is on Kep pra. She said that she had 3 episodes of syncope prior to coming into the Emergency Room. She says the room was spinning, she felt dizzy. She says that she woke up and she was on the floor after bein g dizzy. She does not recall the events. She did not come into the Emergency Room after the first 2 episodes and came in after the 3rd. She has been complaining of flu-like symptoms with congestion a nd sinusitis. She overuses antibiotics frequently and has been warned about the frequent use of anti biotics and complications that it can cause. She states that she was walking out of the bathroom whe n she began feeling this spinning sensation. She also complains of a pressure in the frontal area. She says she has nasal congestion, she has nausea. She denies any fevers or chills, no chest pain, n o shortness of breath, no abdominal pain, no diarrhea, no fevers. She feels weak and fatigued. She has muscle pain at times. REVIEW OF SYSTEMS: All of the review of symptoms are within normal limits except as mentioned. ALLERGIES: SHE HAS ALLERGIES TO GABAPENTIN, METOCLOPRAMIDE, AND TRIMETHOBENZAMIDE. MEDICATIONS: Keppra, Percocet, Paxil, clonazepam, Lyrica, Fioricet, Prilosec, ibuprofen. PAST MEDICAL HISTORY: 1. Pacemaker. 2. Fibromyalgia. 3. Spinal stenosis. 4. Frequent UTI. 5. Chronic sinusitis. 6. Irritable bowel syndrome. 7. Endometriosis. 8. Depression. 9. Anxiety. 10. Plantar fasciitis. PAST SURGICAL HISTORY: Cardiac cath, appendectomy, neck surgery, back surgery, foot surgery, right o ophorectomy; cervical fusion of C3, C4, C5, C6, C7; left knee surgery. PHYSICAL EXAMINATION: VITAL SIGNS: His temperature is 98.1, pulse of 95, blood pressure 156/80, respirations 20, O2 satura tion 97%. GENERAL: Patient lying in bed, flat, and in no apparent distress. HEAD AND NECK EXAM: Atraumatic, normocephalic. Conjunctivae are pink. Throat clear and mouth with moist mucosa. Oropharynx benign. EYES: Extraocular movements are intact. PERRLA. NECK: Supple. No JVD, thyromegaly, or adenopathy. No bruits. HEART: S1 and S2 regular rate and rhythm. No murmurs, rubs, or gallops. LUNGS: Clear to auscultation bilaterally. No wheezing rales or rhonchi appreciated. No retraction s on exam. ABDOMEN: Soft, nontender, nondistended. Bowel sounds are positive in all quadrants. No rebound. No hepatosplenomegaly. EXTREMITIES: No cyanosis, clubbing, or edema. NEURO: No facial asymmetry, tongue is midline, no uvula deviation. Power is 5/5 in upper extremity and 5/5 in lower extremity. Sensation is normal in upper extremity and lower extremity. PSYCH: Awake, alert, oriented x3. No anxiety or depression symptoms. Good insight. Normal affec t. : No CVA tenderness VASCULAR: 2+ pulses in carotid and pedal pulses. SKIN: No erythema or abnormal nodules noted. SPINE: Normal curvature. LYMPHADENOPATHY: No anterior cervical or posterior cervical adenopathy. No inguinal adenopathy. LABORATORY DATA: White count of 8.1, hemoglobin is 10.9, platelet count is 305. Chemistry shows a s odium of 137, potassium is 3.8. Troponin 0.01. Urine shows ketones are negative, blood is negative, nitrites are negative. CT of the head done shows no acute intracranial abnormalities. CT of the sinuses shows the maxillary sinus has minimal mucosal thickening, no air fluid levels, no o ther signs of sinusitis on the CAT scan. EKG shows a paced rhythm at 80. ASSESSMENT: 1. Syncope. 2. Fibromyalgia. 3. Irritable bowel syndrome. 4. Anxiety. 5. Pacemaker. 6. Anemia secondary to history of thalassemia. 7. Spinal stenosis with chronic back pain and neck pain. 8. Depression. 9. Migraine headaches. PLAN: The patient is currently comfortable. She is on Keppra for seizures; this will be continued. I will get Dr. Licona to evaluate this patient. She is on Lyrica. The patient is on ibuprofen as n eeded. She is on Paxil for her depression; this will be continued. She was given IV fluids. I will discontinue the patient's IV fluids. She is on Percocet as needed. I will also get Dr. Sims to e valuate the patient. Felice Zuleta MD cc: [id number] TT: 12/05/2016 10:24:16 mn
--- NOTE | 2016-12-05 10:40 | CARD ---
APPROVED REPORT EKG Measurement Heart [id number] <Conclusion> Electronic ventricular pacemaker: 100% AV paced, new
--- NOTE | 2016-12-05 11:45 | CON ---
DATE: 12/05/2016 SERVICE: Cardiology. REASON FOR CONSULTATION: Syncope, cardiac evaluation. BRIEF CLINICAL HISTORY: A 46-year-old female with past medical history significant for seizure disor rogelio, hypertension, chronic back pain, history of chronic cervical radiculopathy, history of cervical plating in 2000, endometriosis, migraine, anxiety disorder, spinal stenosis, chronic bronchitis, electrophysiology technologist chris urinary tract infection, CVA, history of pacemaker 1 year ago at [facility], admi tted. The patient said that she had syncopized while she was standing, suddenly fell backward, leg w ent up and complete loss of consciousness. Her godson and goddaughter both were at home. They are 1 5 and 21 years old, they called the ambulance and started shaking themselves and called the ambulance . The patient has no further recollection. When she woke up, she was on the floor. Denies any ches t pain, denies any palpitation, denies any aura, denies any seizure activity. PAST MEDICAL HISTORY: Significant for seizure disorder, chronic pain in the body, dizziness, hyperte nsion, cervical and lumbar radiculopathy, status post cervical plating in 2000, intermittent migraine s, anxiety disorder, recurrent UTIs, CVA, chronic bronchitis, sinusitis, status post permanent pacema ker, history of spinal stenosis, fibromyalgia, history of pacemaker interrogation in 06/2016, found to have a normal functioning pacemaker, no evidence of arrhythmia, history of pacemaker a year ago at [facility], a [employer] pacemaker. Previous cardiac workup as follows: Most recently, patient had cardiac catheterization on 07/14/2016 that shows nonobstructive coronary artery disease, mild to moderate luminal irregularity, mild proxim al LAD disease, moderate disease in the RCA, ramus intermedius 55%, preserved LV function, essentiall y nonobstructive coronary artery disease. The patient had a stress test 07/10/2016 suspicious for isc hemia that prompted the cardiac catheterization. The patient had echocardiography 08/28/2014 that show s normal ejection fraction within normal limits here and later on patient had an echo done in Dr. Banegas's office. SOCIAL HISTORY: Denies smoking. Denies any history of alcohol abuse. CURRENT MEDICATIONS: The patient is taking Paxil, clonazepam, Lyrica, acetaminophen, Prilosec, Keppr a, Motrin, cyclobenzaprine, albuterol, Fioricet. REVIEW OF SYSTEMS: A 14-point review of systems is negative except as per HPI. PHYSICAL EXAMINATION: VITAL SIGNS: Temperature afebrile, heart rate 65, blood pressure 132/69. HEENT: PERRLA. Extraocular muscles intact. NECK: Supple. No carotid bruit or thyromegaly. CHEST: Clear to auscultation. HEART: S1, S2 regular. ABDOMEN: Soft. EXTREMITIES: Clubbing and cyanosis negative. EKG shows a V-paced rhythm, underlying, normal sinus. Blood workup as follows: WBC 8.1, hemoglobin 10.9, hematocrit 33.6, platelet count 305. Chemistry s hows sodium 137, potassium 3.8, chloride 105, carbon dioxide 23, anion gap of 13, BUN 14, creatinine 0.8. Troponin 0.01. IMPRESSION: No evidence of acute myocardial infarction, history of syncope, rule out seizure, rule o ut arrhythmia, history of cervical radiculopathy, history of migraine, history of cervical plating in 2000, history of permanent pacemaker a year ago, history of cardiac catheterization 07/14/2016, nonob structive coronary artery disease, limited only to ramus intermedius, otherwise preserved left ventri cular function, essentially nonobstructive, history of recent echo, no significant valvular heart dis ease, history of pacemaker, last interrogation of pacemaker in 06/2016 found to be normal functioning, cervical and lumbar radiculopathy, history of transient ischemic attack, history of recurrent urinar y tract infection, intermittent migraines. RECOMMENDATION: Orthostatic hypotension, will check pacemaker interrogation. Neuro evaluation to ru le out seizure. No invasive cardiac workup is planned at this time except we will check pacemaker an d orthostatics. Further recommendations after the pacemaker interrogation. Will follow with you. Thank you, Dr. Zuleta, for providing the opportunity in taking care of the patient. Sam Faye MD cc: [id number] TT: 12/05/2016 11:44:52 Confirmation # [id number] Dictation # [id number]
--- NOTE | 2016-12-05 17:29 | CON ---
DATE: 12/05/2016 CHIEF COMPLAINT: Syncope. HISTORY OF PRESENT ILLNESS: A 46-year-old woman, with history of questionable seizure disorder on Ke ppra 500 mg p.o. t.i.d., is well known to our practice, with hypertension, chronic pain syndrome, aiden ni, anxiety, pacemaker, chronic bronchitis, chronic UTIs, history of sinusitis, history of myofas cial pain syndrome, who came and said that she was dizzy in terms of the room spinning and felt light headed as if she was going to pass out and woke up on the floor. She has had multiple episodes in past. She is on for neuropathic pain as well as . Orthostatic vital signs did show angel t lying was 191/83 and then sitting was 152/79 and standing was 146/85, so there is a mild orthostati c component to this. Otherwise, no focal weakness in the extremities. She is moving all extremities without any difficulty. REVIEW OF SYSTEMS: A 14-point review of systems is negative except in HPI. ALLERGIES: GABAPENTIN, METOCLOPRAMIDE, TRIMETHOBENZAMIDE. MEDICATIONS: Reviewed via nursing reconciliation sheet. PAST MEDICAL HISTORY: Pacemaker, fibromyalgia, myofascial pain syndrome, spinal stenosis, chronic ba ck pain, chronic neck pain, irritable bowel syndrome, chronic sinusitis, frequent UTIs, endometriosis , depression, anxiety, plantar fasciitis, history of questionable seizure disorder. PAST SURGICAL HISTORY: History of cervical fusion of C3, C4, C5, C6 and C7; history of neck surgery, cardiac catheterization, appendectomy. PHYSICAL EXAMINATION: VITAL SIGNS: Temperature afebrile, pulse rate of 65, blood pressure 132/69, respiratory rate 21, oxy gen 97% on room air. GENERAL: The patient is sitting up in bed in no acute distress. HEENT: Atraumatic, normocephalic. PERRLA. Extraocular muscles intact. NECK: Supple, no JVD, no adenopathy noted. LUNGS: Clear to auscultation. No adventitious sounds. HEART: S1, S2, normal rate and rhythm. No murmurs, rubs, or gallops. ABDOMEN: Soft, nontender, nondistended. Bowel sounds present. EXTREMITIES: No clubbing, no cyanosis. Peripheral pulses 2+ felt bilaterally. NEUROLOGIC: The patient is alert and oriented to person, place, month and year. Speech is fluent, w ithout any errors. Cranial nerves II through XII are intact. MOTOR: Moves all extremities equally. Toes downgoing bilaterally. Increased tone throughout. SENSORY: Light touch, pinprick, proprioception, vibration intact. DTRs are 2+ throughout. COORDINATION: [id number] intact. GAIT: Deferred for now. LABORATORIES: Sodium 137, potassium 3.8, chloride 105, carbon dioxide 23, BUN of 14, creatinine 0.8. Random glucose 82. ASSESSMENT AND PLAN: This is a 46-year-old woman with history of myofascial pain syndrome, chronic u rinary tract infections, chronic sinusitis, migraine headaches, anxiety, endometriosis, hypertension, pacemaker, history of questionable seizure disorder on Keppra 500 t.i.d., had a syncopal event, had vertigo episode prior to the syncopal event likely secondary to a vasovagal type nature with transien t orthostatic drop in blood pressure, which is evident on her orthostatic changes. 1. At this time, we will keep her on Keppra 500 p.o. t.i.d. This is unlikely a seizure disorder com pletely. 2. Keep her on Lyrica 75 p.o. t.i.d. for neuropathic pain and avoid any sedative medications. 3. Get better control of blood pressure, between 130 and 140, and avoid sudden drops. Continue with current present management. Thank you for this consult. Please reconsult if necessary. Leonides Sims MD cc: [id number] TT: 12/05/2016 17:28:24 Confirmation # [id number] Dictation # [id number]
--- NOTE | 2016-12-05 19:19 | CON ---
DATE: 12/05/2016 REASON FOR DICTATION: Addendum to initial dictated this morning. REASON FOR ADDENDUM: The patient underwent a [employer] pacemaker, is a dual chamber pacemaker with r ate drop features that mentioned the patient drop rate from 100-60, but never dropped below 60. No evidence of any arrhythmia, no evidence of ventricular tachycardia, ventricular fibrillation or atrial fibrillation noted recently. The patient had a fast rate August and as mentioned, this p acemaker has a rate drop feature, but did not show any significant bradycardia below a heart rate of 60 and pacer is at lower heart rate of 60%, so if the heart rate goes below 60, the pacemaker will ki ck in but no arrhythmia noted. Thank you Dr. Zuleta, for providing me the opportunity in taking care of the patient. No further c ardiac workup is planned at this time. Sam Faye MD cc:Felice Zuleta MD [id number] TT: 12/05/2016 19:19:32 Confirmation # [id number] Dictation # [id number] dn
[2016-12-05] MEDS: Apap-Butalbital-Caffeine 325-50-40mg Tab PO PRN (19:59)
[2016-12-06] MEDS: Apap-Butalbital-Caffeine 325-50-40mg Tab PO PRN ×2 (00:47→08:03)
[2016-12-06] MEDS: Oxycodone/Acetaminophen 10/325 mg Tab PO PRN (04:35)
[2016-12-06] MEDS: Pantoprazole 40 mg EC Tab PO SCH (06:49)
[2016-12-06 10:21] VITALS: RESP 18; O2SAT 97
--- NOTE | 2016-12-06 11:16 | DS ---
SUBJECTIVE: This is a 46-year-old female who was admitted to the hospital because of falls and possi ble syncope. She was seen by cardiology and had interrogation of her pacemaker. There were no issue s. The patient was also seen by Dr. Sims. He advised better blood pressure control. She was star anders on clonidine. She says she does feel better, but she does have episodes of headaches. She has n o complaints of any nausea, no vomiting, but says she does get nauseous at times and says that the Zo pura helps her. PHYSICAL EXAMINATION: VITAL SIGNS: Temperature is 98.1, pulse of 60, blood pressure 143/73, respirations 20, O2 saturation is 96%. GENERAL: The patient comfortable, in no acute distress. HEENT: Anicteric sclerae. Moist mucosa. NECK: No JVD or adenopathy. CARDIAC: S1/S2. No murmurs. No rubs. Regular. RESPIRATORY: Clear to auscultation bilaterally. No wheezes, rales, or rhonchi. Good air entry. ABDOMEN: Bowel sounds are positive, soft, nontender, and nondistended. EXTREMITIES: No edema. Has 1+ pulses. ASSESSMENT: 1. Syncope, unknown etiology. 2. Fibromyalgia. 3. Irritable bowel syndrome. 4. Anxiety. 5. Pacemaker. 6. Spinal stenosis with chronic back pain and neck pain. 7. Depression. 8. Migraine headaches. PLAN: The patient is currently comfortable. Clonidine has been started. The patient was placed on meclizine. She is going to continue her Klonopin. She is on paroxetine. She is going to be [facility] on clonidine and Zofran. Follow with Dr. Licona in 1-[address] Zuleta in 2-[address] Sims in 1-2 weeks. CONDITION: Stable. ACTIVITIES: Increase as tolerated. Felice Zuleta MD cc: [id number] TT: 12/06/2016 11:15:42
[2016-12-06 12:38] VITALS: BP 132/81; PULSE 78; TEMP 97.6
== END 2016-12-06 14:05 | disposition home or self-care (01) ==
LOC: ED 19:07 → ERH 23:59 → 2RNO 12-05 03:07
PROVIDERS: ADMIT Internal Medicine Nephrology; ATTEND Internal Medicine Nephrology
DX: R55 Syncope and collapse (principal); R42 Dizziness and giddiness; M79.7 Fibromyalgia; K58.9 Irritable bowel syndrome, unspecified; F41.9 Anxiety disorder, unspecified; M48.00 Spinal stenosis, site unspecified; G89.29 Other chronic pain; F32.9 Major depressive disorder, single episode, unspecified; G43.909 Migraine, unspecified, not intractable, without status migrainosus; M72.2 Plantar fascial fibromatosis; J32.9 Chronic sinusitis, unspecified; N80.9 Endometriosis, unspecified; D56.9 Thalassemia, unspecified; I25.10 Atherosclerotic heart disease of native coronary artery without angina pectoris; J42 Unspecified chronic bronchitis; I10 Essential (primary) hypertension; M54.16 Radiculopathy, lumbar region; M54.12 Radiculopathy, cervical region; G40.909 Epilepsy, unspecified, not intractable, without status epilepticus; Z87.440 Personal history of urinary (tract) infections; Z86.73 Personal history of transient ischemic attack (TIA), and cerebral infarction without residual deficits; Z95.0 Presence of cardiac pacemaker
CPT/HCPCS: 70450; 70486; 71010; 80053; 81003; 82550; 83615; 83735; 84484; 85025; 87086; 93005; 96374; 97116; 97161; 99285; G0378; G8978; G8979; J1885; J2270; J2405; J7040

== ENCOUNTER 2017-01-20 17:18 | Emergency (ER) | payer MEDICARE, OTHER ==
[2017-01-20 17:25] VITALS: BMI 34.7
--- NOTE | 2017-01-20 17:46 | ED PDOC ---
Arrival/HPI - General Chief Complaint: Weakness/Neurological Deficit Time Seen by Provider: 01/20/17 17:21 - History of Present Illness Narrative History of Present Illness (Text): 01/20/17 17:25 Jesenia Iglesias is a 46 year old female, whose past medical history includes seizures on Keppra and Klonopin, sinusitis, and pacemaker who presents to the emergency department because she was told her heart rate is fast. Patient states that she came from an Urgent care center who told her to come to the emergency department upon finding that she has tachycardia and an abnormal EKG. Patient also states that she is experiencing chest heaviness and nausea. Patient denies any other complaint at this time. PMD: Dr. Michelle Zuleta Time/Duration: < week Symptom Onset: Gradual Symptom Course: Unchanged Severity Level: Mild Activities at Onset: Rest Context: Home Past Medical History - Provider Review Nursing Documentation Reviewed: Yes - Past History Past History: No Previous - Infectious Disease Hx of Infectious Diseases: None - Tetanus Immunization Tetanus Immunization: Unknown - Cardiac Hx Cardiac Disorders: Yes Hx Hypertension: Yes Hx Internal Defibrillator: Yes Hx Pacemaker: Yes - Pulmonary Hx Respiratory Disorders: No - Neurological Hx Neurological Disorder: Yes HX Cerebrovascular Accident: Yes Hx Dizziness: Yes Hx Seizures: Yes - HEENT Hx HEENT Disorder: No - Renal Hx Renal Disorder: No - Endocrine/Metabolic Hx Endocrine Disorders: No - Hematological/Oncological Hx Blood Disorders: Yes Hx Anemia: Yes - Integumentary Hx Dermatological Disorder: No - Musculoskeletal/Rheumatological Hx Musculoskeletal Disorders: Yes Hx Back Pain: Yes Hx Falls: Yes Hx Fractures: Yes Hx Spinal Stenosis: Yes - Gastrointestinal Hx Gastrointestinal Disorders: No - Genitourinary/Gynecological Hx Genitourinary Disorders: Yes Hx Urinary Tract Infection: Yes - Psychiatric Hx Psychophysiologic Disorder: Yes Hx Anxiety: Yes Hx Substance Use: No - Surgical History Hx Cardiac Catheterization: Yes - Anesthesia Hx Anesthesia: Yes Hx Anesthesia Reactions: No Hx Malignant Hyperthermia: No - Suicidal Assessment Feels Threatened In Home Enviroment: No Family/Social History - Physician Review Nursing Documentation Reviewed: Yes Family/Social History: No Known Family HX Smoking Status: Never Smoked Hx Alcohol Use: No Hx Substance Use: No Hx Substance Use Treatment: No Allergies/Home Meds Allergies/Adverse Reactions: Allergies atorvastatin [From Lipitor] Allergy (Verified 01/20/17 17:29) NAUSEA gabapentin Allergy (Verified 04/17/16 15:04) RASH metoclopramide HCl [From Reglan] Allergy (Verified 04/17/16 15:04) ANGIOEDEMA trimethobenzamide HCl [From Tigan] Allergy (Verified 04/17/16 15:04) ANGIOEDEMA Home Medications: Home Meds Medication Instructions Recorded Confirmed Levetiracetam [Keppra] 500 mg PO TID 06/01/15 01/20/17 Oxycodone HCl/Acetaminophen 1 tab PO QID PRN 06/01/15 01/20/17 [Percocet 325 mg-10 mg] PARoxetine [Paxil] 20 mg PO DAILY 06/01/15 01/20/17 clonazePAM [clonAZEPAM] 1 mg PO QID 06/01/15 01/20/17 Pregabalin [Lyrica] 75 mg PO TID 11/12/15 01/20/17 Acetaminophen/Butalbital/Caf 1 tab PO PRN PRN 04/17/16 01/20/17 [Fioricet] Omeprazole Magnesium [Prilosec Otc] 40 mg PO DAILY 04/17/16 01/20/17 Ibuprofen [Motrin Tab] 800 mg PO Q8 PRN 07/11/16 01/20/17 Cyclobenzaprine [Cyclobenzaprine 10 mg PO PRN PRN 10/22/16 01/20/17 HCl] Ondansetron HCl [Zofran] 4 mg PO BID PRN 12/06/16 01/20/17 cloNIDine [clonidine HCl] 0.1 mg PO BID 12/06/16 01/20/17 Review of Systems - Physician Review All systems were reviewed & negative as marked: Yes - Review of Systems Constitutional: absent: Fevers, Night Sweats Eyes: absent: Vision Changes ENT: absent: Hearing Changes Respiratory: absent: SOB, Cough Cardiovascular: Other (tachycardia and chest heaviness) Gastrointestinal: Nausea Genitourinary Female: absent: Dysuria Musculoskeletal: absent: Arthralgias Skin: absent: Rash Neurological: absent: Headache Endocrine: absent: Diaphoresis Hemo/Lymphatic: absent: Adenopathy Psychiatric: absent: Depression Physical Exam Vital Signs Temp Pulse Resp BP Pulse Ox 01/20/17 21:01 98.2 F 79 16 152/93 H 95 01/20/17 19:05 85 16 134/75 94 L Temperature: Afebrile Blood Pressure: Normal Pulse: Regular Respiratory Rate: Normal Appearance: Positive for: Well-Appearing, Non-Toxic, Comfortable Pain Distress: None Mental Status: Positive for: Alert and Oriented X 3 - Systems Exam Head: Present: Atraumatic, Normocephalic Pupils: Present: PERRL Conjunctiva: Present: Normal Mouth: Present: Moist Mucous Membranes Pharnyx: Present: Normal. No: ERYTHEMA, EXUDATE Neck: Present: Normal Range of Motion Respiratory/Chest: Present: Clear to Auscultation, Good Air Exchange. No: Respiratory Distress, Accessory Muscle Use Cardiovascular: Present: Regular Rate and Rhythm, Normal S1, S2. No: Murmurs Abdomen: Present: Normal Bowel Sounds. No: Tenderness, Distention, Peritoneal Signs Back: Present: Normal Inspection Upper Extremity: Present: Normal Inspection. No: Cyanosis, Edema Lower Extremity: Present: Normal Inspection. No: Edema Neurological: Present: GCS=15, CN II-XII Intact, Speech Normal Skin: Present: Warm, Dry, Normal Color. No: Rashes Psychiatric: Present: Alert, Oriented x 3, Normal Insight, Normal Concentration Medical Decision Making ED Course and Treatment: 01/20/17 17:25 Impression: 46 year old female sent in from Urgent care center after finding that she is tachycardia and an abnormal EKG today. Plan: -- Zofran -- Reassess and disposition Prior Visits: Notes and results from previous visits were reviewed. Patient last seen in the ED on whose past medical history includes 12/05/16 for a syncopal episode that day. Patient was admitted to telemetry for further evaluation. Progress Notes: EKG: Ordered, reviewed, and independently interpreted the EKG. Rate : 88 BPM Rhythm : NSR Interpretation : Borderline left axis. LVH. Comparison : No new ST-T wave changes compared to 10/21/16 01/20/17 21:08 Urgent Care Center likely did not have an old ekg. Patient's EKG here is noted. There is no tachycardia nor any changes from previous. CE are normal with other blood work being unremarkable. Patient already has a stress test scheduled next week with cardiology. She is PERC negative Given no ekg changes , recent cath with no critical stenosis and upcoming follow up outpatient stress test with negative CE, no indication for admission. Urine shows possible UTI - will d/c on abx for UTI. - Lab Interpretations Lab Results: 01/20/17 18:15 01/20/17 18:15 Lab Results 01/20/17 18:44: Urine Color Light yellow, Urine Appearance Clear, Urine pH 6.0, Ur Specific [place] 1.015, Urine Protein Trace H, Urine Glucose (UA) Negative, Urine Ketones Negative, Urine Blood Negative, Urine Nitrate Negative, Urine Bilirubin Negative, Urine Urobilinogen 0.2, Ur Leukocyte Esterase Trace H, Urine RBC 0 - 2, Urine WBC 2 - 5, Ur Epithelial Cells 1 - 3, Urine Bacteria Trace 01/20/17 18:15: PT 10.5, INR 0.97, APTT 25.8 01/20/17 18:15: Sodium 140, Potassium 4.9, Chloride 108 H, Carbon Dioxide 21, Anion Gap 16, BUN 16, Creatinine 0.8, Est GFR ( Amer) > 60, Est GFR (Non- Af Amer) > 60, Random Glucose 108, Calcium 9.4, Magnesium 1.8, Total Bilirubin 0.7, AST 63 H, ALT 41, Alkaline Phosphatase 110, Lactate Dehydrogenase 705 H, Total Creatine Kinase 97, Troponin I < 0.01, Total Protein 8.7 H, Albumin 4.5, Globulin 4.2, Albumin/Globulin Ratio 1.1, Lipase 46 01/20/17 18:15: WBC 8.3, RBC 6.20 H, Hgb 12.0, Hct 36.7, MCV 59.2 L, MCH 19.4 L , MCHC 32.7, RDW 17.4 H, Plt Count 281, Gran % 44.9 L, Lymph % (Auto) 45.8 H, [place] % (Auto) 7.1 H, Eos % (Auto) 1.7, Baso % (Auto) 0.5, Gran # 3.75, Lymph # 3.8 H, [place] # 0.6, Eos # 0.1, Baso # 0.04 I have reviewed the lab results: Yes - RAD Interpretation Radiology Orders: 01/20/17 18:40 CHEST PORTABLE [RAD] Stat - Medication Orders Current Medication Orders: Ceftriaxone Sodium (Rocephin 1 Gram Ivpb) 100 mls @ 200 mls/hr IV ONCE STA PRN Reason: Protocol Stop: 01/20/17 21:31 Discontinued Medications Ondansetron HCl (Zofran Inj) 4 mg IVP STAT STA Stop: 01/20/17 17:52 Last Admin: 01/20/17 20:56 Dose: 4 mg - Scribe Statement The provider has reviewed the documentation as recorded by the Simi Clayton Provider Scribe Attestation: All medical record entries made by the Scribbella were at my direction and personally dictated by me. I have reviewed the chart and agree that the record accurately reflects my personal performance of the history, physical exam, medical decision making, and the department course for this patient. I have also personally directed, reviewed, and agree with the discharge instructions and disposition. Disposition/Present on Arrival - Present on Arrival Any Indicators Present on Arrival: No History of DVT/PE: No History of Uncontrolled Diabetes: No Urinary Catheter: No History of Decub. Ulcer: No History Surgical Site Infection Following: None - Disposition Have Diagnosis and Disposition been Completed?: Yes Diagnosis: Atypical chest pain, Urinary tract infection Disposition: HOME/ ROUTINE Disposition Time: 21:15 Patient Plan: Discharge Patient Problems: Current Active Problems Problem Status Onset Atypical chest pain Acute Urinary tract infection Acute Condition: GOOD Discharge Instructions (ExitCare): Chest Pain (ED) Additional Instructions: Drink plenty of fluids. Take the antibiotics as prescribed. Follow up with Dr. Licona and Dr. Zuleta. Return to the emergency department if any new concerning symptoms. Prescriptions: Amoxicillin/Clavulanate [Augmentin 875 MG-125 MG] 1 tab PO BID #20 tab
[2017-01-20 18:46] LABS: BASO # 0.04 K/mm3 (0.0-2.0); BASO % 0.5 % (0.0-3.0); EOS # 0.1 (0.0-0.7); EOS % 1.7 % (1.5-5.0); GRAN # 3.75 (1.4-6.5); GRAN % 44.9 % (50.0-68.0); LYMPH # 3.8 (1.2-3.4); LYMPH % 45.8 % (22.0-35.0); MEAN CELL VOLUME 59.2 fL (80.0-105.0); MEAN CORPUSCULAR HEMOGLOBIN 19.4 pg (25.0-35.0); MEAN CORPUSCULAR HGB CONC 32.7 g/dl (31.0-37.0); MONO # 0.6 (0.1-0.6); MONO % 7.1 % (1.0-6.0); PLATELET COUNT 281 10^3/uL (120.0-450.0); RED CELL DISTRIBUTION WIDTH 17.4 % (11.5-14.5); WHITE BLOOD COUNT 8.3 10^3/ul (4.5-11.0)
[2017-01-20 18:58] LABS: INR 0.97 (0.93-1.08); PARTIAL THROMBOPLASTIN TIME 25.8 Seconds (23.7-30.8); PROTHROMBIN TIME 10.5 Seconds (9.9-11.8)
[2017-01-20 19:07] LABS: ALB/GLOB RATIO 1.1 (1.1-1.8); ALBUMIN 4.5 g/dL (3.0-4.8); ALT/SGPT 41 U/L (7-56); AST/SGOT 63 U/L (15-39); BLOOD UREA NITROGEN 16 mg/dL (7-21); CALCIUM 9.4 mg/dL (8.4-10.5); GFR AFRICAN-AMERICAN > 60; GFR NON-AFRICAN AMERICAN > 60; LIPASE 46 U/L (23-300); MAGNESIUM 1.8 mg/dL (1.7-2.2)
[2017-01-20 19:08] VITALS: RESP 16
[2017-01-20 19:30] LABS: URINE BILIRUBIN NEGATIVE (NEGATIVE); URINE BLOOD NEGATIVE (NEGATIVE); URINE GLUCOSE (UA) NEGATIVE (NEGATIVE); URINE LEUKOCYTE ESTERASE TRACE Leu/uL (NEGATIVE); URINE NITRATE NEGATIVE (NEGATIVE); URINE PROTEIN TRACE mg/dL (<30 mg/dL); URINE UROBILINOGEN 0.2 E.U./dL (<1 E.U./dL)
[2017-01-20 19:31] LABS: URINE APPEARANCE CLEAR (CLEAR); URINE COLOR LIGHT YELLOW (YELLOW)
[2017-01-20 19:37] LABS: TROPONIN I < 0.01 ng/mL
[2017-01-20 19:55] LABS: URINE BACTERIA TRACE (NEG); URINE RBC 0 - 2 /hpf (0-2)
[2017-01-20 21:01] VITALS: BP 152/93; PULSE 79; TEMP 98.2; O2SAT 95
[2017-01-20] MEDS ORDERED: cefTRIAXone 1 gm 1 GM/100 ML BAG IV STA (21:02)
--- NOTE | 2017-01-21 08:13 | RAD ---
HISTORY: cp COMPARISON: 12/04/2016 FINDINGS: LUNGS: No active pulmonary disease. PLEURA: No significant pleural effusion identified, no pneumothorax apparent. CARDIOVASCULAR: Mild cardiomegaly - -left ventricular enlargement configuration- unchanged. No sebastian pulmonary venous congestion appreciated OSSEOUS STRUCTURES: No significant abnormalities. VISUALIZED UPPER ABDOMEN: Normal. OTHER FINDINGS: Dual lead pacemaker present. Cervical fusion hardware [id number] IMPRESSION: No active disease.
--- NOTE | 2017-01-21 17:44 | CARD ---
APPROVED REPORT EKG Measurement Heart [id number] <Conclusion> Normal sinus rhythm Possible Left atrial enlargement Left ventricular hypertrophy consider inferior ischemia Abnormal ECG
== END 2017-01-20 22:02 | disposition home or self-care (01) ==
LOC: ED 17:18
DX: N39.0 Urinary tract infection, site not specified (principal); R07.89 Other chest pain
CPT/HCPCS: 71010; 80053; 81001; 82550; 83615; 83690; 83735; 84484; 85025; 85610; 85730; 87086; 93005; 96365; 96375; 99285; J0696; J2405

== ENCOUNTER 2017-02-02 19:25 | Inpatient (IN) | payer MEDICARE, OTHER ==
[2017-02-02 19:25] VITALS: BMI 34.7
[2017-02-02] MEDS: Sodium Chloride 0.9% 1,000 ML IV SCH (20:32)
[2017-02-02 21:09] LABS: ALBUMIN 4.8 g/dL (3.0-4.8); ALT/SGPT 57 U/L (7-56); AST/SGOT 55 U/L (15-39); BLOOD UREA NITROGEN 23 mg/dL (7-21); CALCIUM 9.9 mg/dL (8.4-10.5); GFR AFRICAN-AMERICAN > 60; GFR NON-AFRICAN AMERICAN 59; MAGNESIUM 1.7 mg/dL (1.7-2.2)
[2017-02-02 21:16] LABS: BASO # 0.02 K/mm3 (0.0-2.0); BASO % 0.2 % (0.0-3.0); EOS # 0.1 (0.0-0.7); EOS % 1.1 % (1.5-5.0); GRAN # 4.73 (1.4-6.5); GRAN % 53.7 % (50.0-68.0); HEMOGLOBIN 12.2 g/dL (12.0-16.0); LYMPH # 3.5 (1.2-3.4); LYMPH % 40.1 % (22.0-35.0); MEAN CELL VOLUME 58.9 fl (80.0-105.0); MEAN CORPUSCULAR HEMOGLOBIN 19.2 pg (25.0-35.0); MEAN CORPUSCULAR HGB CONC 32.5 g/dl (31.0-37.0); MONO # 0.4 (0.1-0.6); MONO % 4.9 % (1.0-6.0); PLATELET COUNT 273 10^3/uL (120.0-450.0); RBC 6.37 10^6/uL (3.5-6.1); RED CELL DISTRIBUTION WIDTH 17.6 % (11.5-14.5); WHITE BLOOD COUNT 8.8 10^3/ul (4.5-11.0)
[2017-02-02 21:23] LABS: TROPONIN I < 0.01 ng/mL
--- NOTE | 2017-02-02 21:26 | ED PDOC ---
Arrival/HPI - General Chief Complaint: Chest Pain Time Seen by Provider: 02/02/17 19:31 Historian: Patient - History of Present Illness Narrative History of Present Illness (Text): 02/02/17 20:05 Jesenia Iglesias is a 46 year old female, with a history of pacemaker and seizure, presents to the emergency department complaining of intermittent chest pain and generalized weakness. Patient also complains that she has some sinus headache discomfort and dizziness. Denies any fever, chills, difficulty breathing, abdominal pain, nausea, vomiting, diarrhea, or any other complaints at this time. Symptom Onset: Gradual Severity Level: Mild Activities at Onset: Light Past Medical History - Provider Review Nursing Documentation Reviewed: Yes - Past History Past History: No Previous - Infectious Disease Hx of Infectious Diseases: None - Tetanus Immunization Tetanus Immunization: Unknown - Cardiac Hx Cardiac Disorders: Yes Hx Hypertension: Yes Hx Internal Defibrillator: Yes Hx Pacemaker: Yes - Pulmonary Hx Respiratory Disorders: No - Neurological Hx Neurological Disorder: Yes HX Cerebrovascular Accident: Yes Hx Dizziness: Yes Hx Seizures: Yes - HEENT Hx HEENT Disorder: No - Renal Hx Renal Disorder: No - Endocrine/Metabolic Hx Endocrine Disorders: No - Hematological/Oncological Hx Blood Disorders: Yes Hx Anemia: Yes - Integumentary Hx Dermatological Disorder: No - Musculoskeletal/Rheumatological Hx Musculoskeletal Disorders: Yes Hx Back Pain: Yes Hx Falls: Yes Hx Fractures: Yes Hx Spinal Stenosis: Yes - Gastrointestinal Hx Gastrointestinal Disorders: No - Genitourinary/Gynecological Hx Genitourinary Disorders: Yes Hx Urinary Tract Infection: Yes - Psychiatric Hx Psychophysiologic Disorder: Yes Hx Anxiety: Yes Hx Substance Use: No - Surgical History Hx Cardiac Catheterization: Yes - Anesthesia Hx Anesthesia: Yes Hx Anesthesia Reactions: No Hx Malignant Hyperthermia: No - Suicidal Assessment Feels Threatened In Home Enviroment: No Family/Social History - Physician Review Nursing Documentation Reviewed: Yes Family/Social History: No Known Family HX Smoking Status: Never Smoked Hx Alcohol Use: No Hx Substance Use: No Hx Substance Use Treatment: No Allergies/Home Meds Allergies/Adverse Reactions: Allergies atorvastatin [From Lipitor] Allergy (Verified 01/20/17 17:29) NAUSEA gabapentin Allergy (Verified 04/17/16 15:04) RASH metoclopramide HCl [From Reglan] Allergy (Verified 04/17/16 15:04) ANGIOEDEMA trimethobenzamide HCl [From Tigan] Allergy (Verified 04/17/16 15:04) ANGIOEDEMA Home Medications: Home Meds Medication Instructions Recorded Confirmed Levetiracetam [Keppra] 500 mg PO TID 06/01/15 02/02/17 Oxycodone HCl/Acetaminophen 1 tab PO QID PRN 06/01/15 02/02/17 [Percocet 325 mg-10 mg] PARoxetine [Paxil] 20 mg PO DAILY 06/01/15 02/02/17 clonazePAM [clonAZEPAM] 1 mg PO QID 06/01/15 02/02/17 Pregabalin [Lyrica] 75 mg PO TID 11/12/15 02/02/17 Acetaminophen/Butalbital/Caf 1 tab PO PRN PRN 04/17/16 02/02/17 [Fioricet] Omeprazole Magnesium [Prilosec Otc] 40 mg PO DAILY 04/17/16 02/02/17 Ibuprofen [Motrin Tab] 800 mg PO Q8 PRN 07/11/16 02/02/17 Cyclobenzaprine [Cyclobenzaprine 10 mg PO PRN PRN 10/22/16 02/02/17 HCl] Ondansetron HCl [Zofran] 4 mg PO BID PRN 12/06/16 02/02/17 cloNIDine [clonidine HCl] 0.1 mg PO BID 12/06/16 02/02/17 Review of Systems - Physician Review All systems were reviewed & negative as marked: Yes - Review of Systems Constitutional: Fatigue. absent: Fevers Respiratory: Normal. absent: SOB, Cough, Sputum Cardiovascular: Chest Pain. absent: Palpitations Gastrointestinal: absent: Abdominal Pain, Constipation, Diarrhea, Nausea, Vomiting Genitourinary Female: Normal Neurological: Headache, Dizziness Psychiatric: Normal Physical Exam Vital Signs Reviewed: Yes Vital Signs Temp Pulse Resp BP Pulse Ox 02/02/17 23:16 60 16 109/58 L 95 02/02/17 19:25 98.0 F 60 18 91/50 L 2 L Temperature: Afebrile Blood Pressure: Hypotensive Pulse: Regular Respiratory Rate: Normal Appearance: Positive for: Well-Appearing, Non-Toxic, Comfortable Pain Distress: None Mental Status: Positive for: Alert and Oriented X 3 - Systems Exam Head: Present: Atraumatic, Normocephalic Pupils: Present: PERRL Extroacular Muscles: Present: EOMI Conjunctiva: Present: Normal Mouth: Present: Moist Mucous Membranes Respiratory/Chest: Present: Clear to Auscultation, Good Air Exchange. No: Respiratory Distress, Accessory Muscle Use Cardiovascular: Present: Regular Rate and Rhythm, Normal S1, S2. No: Murmurs Abdomen: Present: Normal Bowel Sounds. No: Tenderness, Distention, Peritoneal Signs, Rebound, Guarding Upper Extremity: Present: Normal Inspection. No: Cyanosis, Edema Lower Extremity: Present: Normal Inspection. No: Edema Neurological: Present: GCS=15, CN II-XII Intact, Speech Normal, Motor Func Grossly Intact, Normal Sensory Function Skin: Present: Warm, Dry, Normal Color. No: Rashes Psychiatric: Present: Alert, Oriented x 3, Normal Insight, Normal Concentration Medical Decision Making ED Course and Treatment: 02/02/17 20:05 Impression: A 46 year old female who presents to the emergency department complaining of chest pain. Also states she had 2 syncopal episodes today. Plan: -- EKG -- Labs, cardiac enzymes -- Drug screen -- IV fluids -- Urinalysis -- Reassess and disposition Progress Notes: 02/02/17 23:50 EKG interpreted by me: Paced @ 60bpm. 02/02/17 23:[address] Zuleta who is aware and agrees with the plan to observe patient at telemetry. Accepts patient under his service. - Lab Interpretations Lab Results: 02/02/17 20:40 02/02/17 20:40 Lab Results 02/04/17 04:30: TSH 3rd Generation 0.9 02/03/17 21:50: POC Glucose (mg/dL) 201 H 02/03/17 20:15: Lactate Dehydrogenase 411, Total Creatine Kinase 67, Troponin I 0.04 D 02/03/17 05:45: Troponin I < 0.01 02/02/17 22:10: Urine Opiates Screen Negative, Urine Methadone Screen Negative, Ur Barbiturates Screen Positive H, Ur Phencyclidine Scrn Negative, Ur Amphetamines Screen Negative, U Benzodiazepines Scrn Negative, U Oth Cocaine Metabols Negative, U Cannabinoids Screen Negative 02/02/17 22:10: Urine Color Yellow, Urine Appearance Clear, Urine pH 6.0, Ur Specific Jelm 1.015, Urine Protein Negative, Urine Glucose (UA) Negative, Urine Ketones Negative, Urine Blood Negative, Urine Nitrate Negative, Urine Bilirubin Negative, Urine Urobilinogen 0.2, Ur Leukocyte Esterase Negative, Urine HCG, Qual Negative 02/02/17 20:40: Sodium 140, Potassium 4.0, Chloride 103, Carbon Dioxide 22, Anion Gap 19, BUN 23 H, Creatinine 1.0, Est GFR ( Amer) > 60, Est GFR ( Non-Af Amer) 59, Random Glucose 116 H, Calcium 9.9, Magnesium 1.7, Total Bilirubin 0.5, AST 55 H, ALT 57 H, Alkaline Phosphatase 122, Lactate Dehydrogenase 498, Total Creatine Kinase 87, Troponin I < 0.01, Total Protein 9.6 H, Albumin 4.8, Globulin 4.8, Albumin/Globulin Ratio 1.0 L 02/02/17 20:40: WBC 8.8, RBC 6.37 H, Hgb 12.2, Hct 37.5, MCV 58.9 L, MCH 19.2 L , MCHC 32.5, RDW 17.6 H, Plt Count 273, Gran % 53.7, Lymph % (Auto) 40.1 H, Lewis % (Auto) 4.9, Eos % (Auto) 1.1 L, Baso % (Auto) 0.2, Gran # 4.73, Lymph # 3.5 H, Lewis # 0.4, Eos # 0.1, Baso # 0.02 I have reviewed the lab results: Yes - RAD Interpretation Radiology Orders: 02/03/17 00:08 MAXILLOFACIAL W/O CONTRAST [CT] Stat - EKG Interpretation Interpreted by ED Physician: Yes Type: 12 lead EKG - Medication Orders Current Medication Orders: Clonazepam (Klonopin) 1 mg PO QID [facility] PRN Reason: Protocol Last Admin: 02/04/17 22:06 Dose: 1 mg Re-Assess: Reassess Psych Meds Document 02/04/17 23:06 AP (Rec: 02/04/17 23:35 AP [id number]) Reassess Psych Med Effective Sodium Chloride (Sodium Chloride 0.9%) 1,000 mls @ 50 mls/hr IV .Q20H [facility] Last Admin: 02/04/17 16:02 Dose: 50 mls/hr Levetiracetam (Keppra) 500 mg PO TID [facility] Last Admin: 02/04/17 18:17 Dose: 500 mg Ondansetron HCl (Zofran Inj) 4 mg IVP Q4H PRN PRN Reason: Nausea/Vomiting Last Admin: 02/04/17 09:40 Dose: 4 mg Oxycodone/Acetaminophen (Percocet 10/325 Mg Tab) 1 tab PO QID PRN PRN Reason: Pain, severe (8-10) Last Admin: 02/05/17 04:58 Dose: 1 tab Re-Assess: [facility] Pain Assessment Document 02/05/17 05:58 AP (Rec: 02/05/17 05:58 AP [id number]) Pain Reassessment Is this a pain reassessment? Yes Presence of Pain Presence of Pain No Paroxetine HCl (Paxil) 20 mg PO DAILY [facility] Last Admin: 02/04/17 09:41 Dose: 20 mg Pregabalin (Lyrica) 75 mg PO TID [facility] Last Admin: 02/04/17 18:17 Dose: 75 mg Discontinued Medications Acetaminophen/Butalbital/Caffeine (Fioricet) 1 tab PO STAT STA Stop: 02/05/17 00:17 Last Admin: 02/05/17 00:24 Dose: 1 tab Re-Assess: [facility] Pain Assessment Document 02/05/17 01:24 AP (Rec: 02/05/17 01:38 AP [id number]) Pain Reassessment Is this a pain reassessment? Yes Sleep Is patient sleeping during reassessment? Yes Aminophylline (Aminophylline 25 Mg/Ml Inj) Confirm Administered Dose 250 mg .ROUTE .STK-MED ONE Stop: 02/03/17 12:36 Last Admin: 02/03/17 12:57 Dose: 100 mg Comments: given during stress for nausea as per order by Dr. Faye Amlodipine Besylate (Norvasc) 5 mg PO ONCE ONE Stop: 02/04/17 19:10 Last Admin: 02/04/17 18:17 Dose: Not Given Non-Admin Reason: BP Parameters Not Met Amlodipine Besylate (Norvasc) 5 mg PO DAILY [facility] Last Admin: 02/04/17 09:39 Dose: 5 mg Clonidine HCl (Catapres) 0.2 mg PO ONCE ONE Stop: 02/03/17 17:21 Last Admin: 08/08/17 17:55 Dose: 0.2 mg Sodium Chloride (Sodium Chloride 0.9%) 1,000 mls @ 200 mls/hr IV .Q5H [facility] Last Admin: 02/03/17 02:36 Dose: 200 mls/hr Ceftriaxone Sodium (Rocephin 1 Gram Ivpb) 1 gm in 100 mls @ 200 mls/hr IVPB STAT STA PRN Reason: Protocol Stop: 02/03/17 00:20 Last Admin: 02/03/17 00:50 Dose: 200 mls/hr Sodium Chloride (Sodium Chloride 0.9%) 250 mls @ 500 mls/hr IV .Q30M STA Stop: 02/03/17 22:17 Last Admin: 02/03/17 21:48 Dose: 500 mls/hr Sodium Chloride (Sodium Chloride 0.9%) 500 mls @ 999 mls/hr IV .Q31M STA Stop: 02/04/17 12:49 Last Admin: 02/04/17 12:35 Dose: 999 mls/hr Potassium Chloride (K-Dur 20 Meq Er Tab) 40 meq PO ONCE ONE Stop: 02/03/17 10:41 Last Admin: 02/03/17 11:02 Dose: 40 meq Regadenoson (Lexiscan) Confirm Administered Dose 0.4 mg IVP .STK-MED ONE Stop: 02/03/17 12:36 Last Admin: 02/03/17 12:55 Dose: 0.4 mg Comments: given during stress test by Dr. Yunier Belcher Statement The provider has reviewed the documentation as recorded by the Simi Sauer Provider Attestation: Provider Scribe Attestation: All medical record entries made by the Simi were at my direction and personally dictated by me. I have reviewed the chart and agree that the record accurately reflects my personal performance of the history, physical exam, medical decision making, and the department course for this patient. I have also personally directed, reviewed, and agree with the discharge instructions and disposition. Disposition/Present on Arrival - Present on Arrival Any Indicators Present on Arrival: No History of DVT/PE: No History of Uncontrolled Diabetes: No Urinary Catheter: No History of Decub. Ulcer: No History Surgical Site Infection Following: None - Disposition Have Diagnosis and Disposition been Completed?: Yes Diagnosis: Chest pain Disposition: HOSPITALIZED Disposition Time: 23:20 Condition: FAIR
[2017-02-02 22:31] LABS: URINE BILIRUBIN NEGATIVE (NEGATIVE); URINE BLOOD NEGATIVE (NEGATIVE); URINE GLUCOSE (UA) NEGATIVE (NEGATIVE); URINE LEUKOCYTE ESTERASE NEGATIVE Leu/uL (NEGATIVE); URINE NITRATE NEGATIVE (NEGATIVE); URINE PROTEIN NEGATIVE mg/dL (<30 mg/dL); URINE UROBILINOGEN 0.2 E.U./dL (<1 E.U./dL)
[2017-02-02 22:32] LABS: URINE APPEARANCE CLEAR (CLEAR); URINE COLOR YELLOW (YELLOW)
[2017-02-02 22:37] LABS: HCG,QUALITATIVE URINE NEGATIVE (NEGATIVE)
[2017-02-02 22:45] LABS: BARBITURATES, UR POSITIVE (NEGATIVE); BENZODIAZEPINES, UR NEGATIVE (NEGATIVE); OPIATES, UR NEGATIVE (NEGATIVE); PHENCYCLIDINE, UR NEGATIVE (NEGATIVE)
[2017-02-02] MEDS ORDERED: cefTRIAXone 1 gm 1 GM/100 ML BAG IVPB STA (23:51)
--- NOTE | 2017-02-03 02:02 | CT ---
EXAM: CT Maxillofacial Without Intravenous Contrast CLINICAL HISTORY: 46 years old, female; Pain; Eye pain; Right; Additional info: Rt eye pain TECHNIQUE: Axial computed tomography images of the face without intravenous contrast. This CT exam was performed using one or more of the following dose reduction techniques: automated exposure control, adjustment of the mA and/or kV according to patient size, and/or use of iterative reconstruction technique. Coronal and sagittal reformatted images were created and reviewed. EXAM DATE/TIME: 02/03/2017 12:08 AM COMPARISON: CT - SINUSES W/O CONTRAST 12/04/2016 10:41:41 PM FINDINGS: Orbits: Globes are intact. Retrobulbar structures are symmetric. Bony orbits are intact bilaterally. Dental: There are dental caries bilaterally. There are apical erosions greatest in the maxilla. Bony structures: There are no acute osseous abnormalities. There is hyperostosis frontalis interna. There are postsurgical changes of anterior cervical fusion which are incompletely imaged. There are degenerative changes in upper cervical spine. Brain: No acute abnormalities are seen in visualized portion of the brain. Ears and mastoids: Middle ears and mastoids are unremarkable Sinuses: There is no acute sinusitis. Soft tissues: There are no facial masses. Airway: Airway is unremarkable. IMPRESSION: No acute orbital abnormality; dental disease
[2017-02-03] MEDS: Sodium Chloride 0.9% 1,000 ML IV SCH (02:36)
--- NOTE | 2017-02-03 05:57 | CP.PCM.PN ---
Subjective - Date & Time of Evaluation Date of Evaluation: 02/03/17 Time of Evaluation: 05:52 - Subjective Subjective: DRAFT chest pain, S/P PPM left upper anterior chest no radiation 8/10 like heaviness on and off for 3 days then said for 30 days Also left neck pain, gives history of metal plate in neck No other symptoms states that she had cardiac cath done in June and she was told that she has 50 % blockage. Was scheduled to have a stress test for tomorrow. Chest pain is enhanced on palpation This 46 year old woman was admitted with chest pain, weakness , dizziness. Has history of anxiety, depression, fibromyalgia, spinal stenosis, PPM insertion , IBS, endometrosis. Objective - Vital Signs/Intake and Output Vital Signs (last 24 hours): Temp Pulse Resp BP Pulse Ox 98.6 F 60 15 139/83 97 02/03/17 02:44 02/03/17 02:44 02/03/17 02:44 02/03/17 02:44 02/03/17 02:25 - Medications Medications: Current Medications Sodium Chloride (Sodium Chloride 0.9%) 1,000 mls @ 200 mls/hr IV .Q5H [facility] Last Admin: 02/03/17 02:36 Dose: 200 mls/hr - Constitutional Appears: Well, No Acute Distress - Head Exam Head Exam: ATRAUMATIC, NORMAL INSPECTION, NORMOCEPHALIC - Eye Exam Eye Exam: Normal appearance - ENT Exam ENT Exam: Normal External Ear Exam - Neck Exam Neck Exam: Normal Inspection - Respiratory Exam Respiratory Exam: NORMAL BREATHING PATTERN - Cardiovascular Exam Cardiovascular Exam: absent: JVD - GI/Abdominal Exam GI & Abdominal Exam: absent: Distended - Rectal Exam Rectal Exam: Deferred - Exam Additional comments: Deferred. - Extremities Exam Extremities Exam: Normal Inspection - Back Exam Back Exam: NORMAL INSPECTION - Neurological Exam Neurological Exam: Alert, Oriented x3 - Psychiatric Exam Psychiatric exam: Normal Affect, Normal Mood - Skin Skin Exam: Normal Color Assessment and Plan - Assessment and Plan (Free Text) Assessment: Chest pain-Musculoskeletal. R/O cardiac pain. Fibromyalgia. Spinal stenosis. Anxiety. Depression. PPM insertion. IBS. Endometriosis. Plan: EKG---> No acute changes. Troponin---> Pending. Continue present management.
[2017-02-03] MEDS: Oxycodone/Acetaminophen 10/325 mg Tab PO PRN ×2 (06:28→16:29)
[2017-02-03] MEDS ORDERED: Potassium Chloride 20 mEq ER Tab PO ONE (10:40)
[2017-02-03] MEDS ORDERED: Aminophylline 25 mg/ml Inj ONE (12:35)
--- NOTE | 2017-02-03 19:38 | CARD ---
APPROVED REPORT EKG Measurement Heart [id number] <Conclusion> Electronic atrial pacemaker Moderate voltage criteria for LVH, may be normal variant Nonspecific T wave abnormality Abnormal ECG
[2017-02-03 20:48] LABS: TROPONIN I 0.04 ng/mL
[2017-02-03] MEDS ORDERED: Sodium Chloride 0.9% 250 ML IV STA (21:48)
--- NOTE | 2017-02-03 23:29 | CARD ---
APPROVED REPORT EKG Measurement Heart [id number] <Conclusion> Electronic atrial pacemaker Minimal voltage criteria for LVH, may be normal variant Nonspecific T wave abnormality Abnormal ECG
[2017-02-04] MEDS: Oxycodone/Acetaminophen 10/325 mg Tab PO PRN ×4 (01:56→22:07)
--- NOTE | 2017-02-04 02:13 | HP ---
HISTORY OF PRESENT ILLNESS: This is a 46-year-old female who is coming into the hospital complaining of intermittent chest pain, she is complaining of weakness. She says that she has recently finished antibiotics for urinary tract infection and also sinus infection. She has a long history of abusing multiple antibiotics for sinus issues. She often is overprescribed medications and she has been advised to limit her antibiotics exposure. She goes to multiple other doctors to get antibiotics. She says that she was having chest discomfort. She was dizzy. She had no nausea. She did have some shortness of breath. She has no abdominal pain, no back pain, no dysuria or frequency. She does have history of chronic back pain, but the back pain is not any different. She was supposed to get a stress test done tomorrow. She had previously scheduled for stress test about 2 weeks ago, but was not able to get it done. She follows with Dr. 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 She has a pacemaker in place for history of symptomatic bradycardia. All other review of systems are within normal limits except as mentioned. ALLERGIES: TO ATORVASTATIN, GABAPENTIN, METOCLOPRAMIDE, TRIMETHOPRIM, TRIMETHOBENZAMIDE. MEDICATIONS: She is on Percocet, Keppra, Paxil, clonazepam, Lyrica, Fioricet, Prilosec, ibuprofen. PAST MEDICAL HISTORY: Fibromyalgia, spinal stenosis, frequent UTIs, chronic sinusitis, irritable bowel syndrome, endometriosis, depression, anxiety, plantar fasciitis, pacemaker placement. PAST SURGICAL HISTORY: Pacemaker placement; appendectomy; cardiac cath in June 2016; neck surgery; back surgery; foot surgery; right oophorectomy; cervical fusion at C3, C4, C5, C6, C7; left knee surgery. FAMILY HISTORY: Noncontributory. PHYSICAL EXAMINATION VITAL SIGNS: Temperature is 97.8, pulse 62, blood pressure 145/56, respirations 20. Height 5 feet 5 inches, weight 220 pounds, BMI is 36. GENERAL: The patient lying in bed, uncomfortable, and in no acute distress. HEENT: Atraumatic and normocephalic. Anicteric sclerae. Moist mucosa. [place] conjunctivae. No oral lesions. NECK: No JVD, anterior and posterior adenopathy, thyromegaly, or bruits. CARDIOVASCULAR: S1 and S2 regular. No murmur, rubs, or gallop. LUNGS: Clear to auscultation bilaterally. No wheezes, rales, or rhonchi. In the left chest, there is a pacemaker present. ABDOMEN: Bowel sounds are positive. Soft, nontender and nondistended. No hepatosplenomegaly. No rebound and no guarding. EXTREMITIES: No cyanosis, clubbing, or edema. NEUROLOGIC: No facial asymmetry. Tongue is midline. No vulva deviation. Power is 5/5 upper extremity and lower extremity. Sensation intact in upper extremity and lower extremity. PSYCHIATRIC: She is awake, alert and oriented x3. No anxiety or depression. She has normal affect. GENITOURINARY: No CVA tenderness. VASCULAR: 2+ pulses in the carotid pulses and pedal pulses. SKIN: No erythema or nodules SPINE: Shows normal curvature. LABORATORY DATA: White count of 8.8, hemoglobin 12.2. Chemistry shows creatinine is 1.0. Troponin is 0.01, second is 0.01. The patient's urine shows urine is negative. She has a toxicology screen and that shows barbiturates are positive, but otherwise negative. She has CT of the maxillofacial bones. It did not show signs of sinusitis. She had dental disease. EKG shows a rate of 58, it is atrial paced. ASSESSMENT: 1. Chest pain. 2. Pacemaker. 3. Fibromyalgia. 4. Spinal stenosis. 5. Irritable bowel syndrome. 6. Depression. 7. Anxiety. 8. Migraine headaches. PLAN: The patient is currently comfortable. She did have a cath done in June, which did not show any significant abnormalities. It will be unlikely for her to have developed coronary disease. She may have has seen multiple cardiologists for similar symptoms, but it is difficult to say because she does have a pacemaker that was placed. I will defer to Dr. Faye for his expertise. She does have a stress test scheduled tomorrow and she may be able to get it done today. I did speak to Dr. Faye and he will try to get the stress test done today. I will continue on her Keppra for her seizure. She is on Klonopin daily, I will continue that. She is on Paxil, I will continue that as well. The patient was given one dose of Rocephin in the ER. I do not believe she needs any further antibiotics. We should limit her antibiotic usage. She has very care and she will follow at times with her specialist. We will continue to follow closely. Felice Zuleta MD
--- NOTE | 2017-02-04 08:38 | CON ---
DATE: 02/03/2017 TYPE OF DICTATION: Consult. SERVICE: Cardiology. CONSULTING PHYSICIAN: Dr. Sam Faye. REASON FOR CONSULTATION: Follow up chest pain. BRIEF CLINICAL HISTORY: The patient is a 46-year-old female with past medical history significant for seizure disorder, hypertension, chronic back pain, history of cervical radiculopathy, history of cervical plating in 2000, endometriosis, migraine, anxiety disorder, spinal stenosis, chronic bronchitis, chronic urinary tract infection, CVA, history of pacemaker a year ago at [facility], admitted with complaints of dizziness, left-sided chest pain, and complained of sharp pain radiating to the shoulder. The patient was scheduled for a stress test tomorrow that is 02/04/2017. PAST MEDICAL HISTORY: Significant for seizure disorder, chronic back pain in the body, chronic dizziness, hypertension, cervical and lumbar radiculopathy, status post cervical plating in 2000, intermittent migraine, anxiety disorder, recurrent UTI, history of CVA, history of bronchitis, sinusitis, recurrent history of permanent pacemaker, spinal stenosis, fibromyalgia, history of pacemaker intervention in 06/2016, found to be normal functioning. PREVIOUS CARDIAC WORKUP: As follows. The patient most recently has a cardiac catheterization on 07/14/2016 that shows nonobstructive coronary artery disease, mild proximal LAD disease, RCA moderate disease, ejection fraction 55% preserved, essentially nonobstructive. The patient had a stress test on 07/10/2016 that is suspicious for apical ischemia, so underwent cardiac catheterization. Last echo shows normal ejection fraction dated 08/28/2014. Last intervention of the pacemaker on 06/2016 normal functioning,8 to 10 years life. SOCIAL HISTORY: Denies any history of smoking. Denies any history of alcohol abuse. CURRENT MEDICATIONS: The patient is taking clonazepam, clonidine, Lyrica, Paxil, oxycodone, Macrobid (nitrofurantoin), Keppra, ibuprofen, cyclobenzaprine, and acetaminophen. ALLERGIES: ATORVASTATIN, GABAPENTIN, REGLAN, TIGAN. REVIEW OF SYSTEMS: As per HPI. PHYSICAL EXAMINATION VITAL SIGNS: Height of the patient 5 feet 5 inches, weight of the patient of 218 pounds, body mass index 36.3 kg/sq m. Temperature afebrile, heart rate 78 and blood pressure 132/81. HEENT: PERRLA, extraocular muscles intact. NECK: Supple. No carotid bruits or thyromegaly. CHEST: Clear to auscultation. HEART: S1 and S2, regular. ABDOMEN: Soft. EXTREMITIES: Clubbing and cyanosis negative. LABORATORY DATA: Blood workup as follows: WBC 8.1, hemoglobin 10.9, hematocrit 33.6, and platelet count 305. Chemistry shows sodium 139, potassium 3.0, chloride 105, carbon dioxide of 23, anion gap of 13, BUN 14 and creatinine 0.8. Troponin is 0.01, negative. IMPRESSION: Atypical chest pain. The patient is already being scheduled for stress test tomorrow. History of cardiac catheterization in June, nonobstructive coronary artery disease, preserved LV function, history of seizure disorder, history of permanent pacemaker, history of spinal stenosis, history of lumbar and cervical radiculopathy, history of plating in the back, history of chronic pain, history of chronic urinary tract infection, history of sinusitis. RECOMMENDATIONS: Since the patient is scheduled for a stress test tomorrow, try to schedule today if it is possible and try to get her out if the stress test is negative. Discussed with Dr. Zuleta, discussed with Dr. Licona and discussed with the patient. We will keep n.p.o. for now and try to schedule today. We will supplement potassium. Sam Faye MD cc: Dr. Zuleta.
--- NOTE | 2017-02-04 11:44 | PN ---
DATE: 02/04/2017 REASON FOR CONSULTATION: Cardiac evaluation and chest pain. SUBJECTIVE: Denies any chest pain today. PHYSICAL EXAMINATION: GENERAL: Lying flat in the bed, not in apparent distress. VITAL SIGNS: Temperature afebrile, heart rate 66, and blood pressure *------*. HEENT: PERRLA intact. NECK: Supple. No carotid bruit or thyromegaly. CHEST: Clear to auscultation. HEART: S1 and S2 regular. ABDOMEN: Soft. EXTREMITIES: Clubbing and cyanosis negative. IMPRESSION: A 46-year-old female with past medical history significant for multiple medical problems including cervical radiculopathy, status post pacemaker *------* chest pain, no evidence of myocardial infarction. Yesterday, the patient underwent stress test was essentially negative. Officially not read yet, but unofficially read as negative. History of cervical radiculopathy, history of cerebrovascular accident, history of chronic urinary tract infection with chronic sinus problem. RECOMMENDATIONS: Discontinue telemetry. We will also do the orthostatic that make sure the patient is not orthostatic as the patient was vomiting yesterday. The patient had last catheterization was done in June that shows nonobstructive coronary artery disease. We will follow with you. Thank you Dr. Zuleta for providing me the opportunity in taking care of patient, Jesenia Iglesias. Sam Faye MD
[2017-02-04] MEDS ORDERED: Sodium Chloride 0.9% 500 ML IV STA (12:19)
[2017-02-04] MEDS ORDERED: Sodium Chloride 0.9% 1,000 ML IV SCH (13:00)
--- NOTE | 2017-02-04 13:40 | CARD ---
APPROVED REPORT Protocol: LEXISCAN Test Type: Lexiscan Sestamibi Stress Test Attending Physician: Dr. Sam Tejeda Referring Physician: Dr. Felice Zuleta Test Indications: Chest Pain Height:5 ft 4 in Weight:213lbs Medications: Klonopin,Keppra,Percocet, Paxil,Lyrica Medical History: 46 y/o female. Hx of chest pain,hypertension, seizures. Target HR: 172 bpm Resting ECG: normal Resting Heart Rate: 107 bpm Resting Blood Pressure: 140/80mmHg Submaximum (85%): 146 bpm PROCEDURE Pharmacologic stress testing was performed using 0.4mg per 5ml of regadenoson given intravenously over 7-10 seconds. Reversal agent aminophyline 200 mg, given intravenously for Nausea. POST EXERCISE Reason for Termination: Protocol completed Target HR: No Max HR: 123 bpm 79% of Maximum Predicted HR: 172 bpm Exercise duration: 00:30 min:sec, 0 Stage Exercise capacity: 1.0METs Max Blood Pressure: 150/60mmHg Blood Pressure response to exercise: normal resting BP - appropriate response Heart Rate response to exercise: appropriate Chest Pain: No, none Angina index: 0 Arrhythmia: No, none ST Change: No, none Deviation: 0 mm TEST SUMMARY [id number]. INFUSIONDOSE [id number]. [id number]. INTERPRETATION Stress EKG Conclusion: Negative IV lexiscan for ischemia and for chest pain, Nuclear scan to follow. Signed by Sam Tejeda Electronically Approved: 02/03/2017 13:58:57 EXAM: Myocardial Perfusion REST/STRESS Stress Test Type: Pharmacologic Imaging Protocol Rest Spect myocardial perfusion imaging was performed in supine position 45 minutes following the injection of 10.9 mCi of Tc-99 Myoview. At peak stress, the patient was injected intravenously with 30.7mCi of Tc-99 tetrofosmin after an infusion time of 0 minutes and 10 seconds. Gated Stress Spect was performed 65 minutes after intravenous Tc-99 Myoview injection. The images were gated to evaluate regional wall motion and calculate ventricular ejection fraction.Images were reconstructed using backfilter projection method in short horizontal and verticle long axis. Spect slices were generated. LV Perfusion The quality of the study is good. The left ventricle is normal in size. The right ventricle is unremarkable. The lung uptake is normal. The distribution of tracer reveals mildly y decreased peusion involving apical wall on the stress study. The remainder of the LV myocardium is unremarkable. The rest myocardial perfusion study shows no significant change. Wall Motion Wall motion study shows good contractility of the left ventricle. LVEF = 75%. Conclusion 1. Essentially normal SPECT myocardial perfusion study. 2. Fixed, apical defect is most likely due to breast attenuation. 3. Normal gated wall motion of the left ventricle.
[2017-02-05] MEDS ORDERED: Apap-Butalbital-Caffeine 325-50-40mg Tab PO STA (00:16)
[2017-02-05] MEDS: Oxycodone/Acetaminophen 10/325 mg Tab PO PRN ×2 (04:58→11:57)
--- NOTE | 2017-02-05 06:16 | DS ---
The patient has no complains of any chest pain. She says she just feel weak and tired. She was concerned about her blood pressure yesterday. She has no nausea and says her appetite is not great. PHYSICAL EXAMINATION: VITAL SIGNS: Temperature 98.7, pulse is 68, blood pressure 95/49 and respiration 22. GENERAL: The patient is lying in bed, flat, comfortable. HEENT: No oral lesion. Anicteric sclerae. Moist mucosa. NECK: No JVD, adenopathy, or thyromegaly. CARDIOVASCULAR: S1 and S2, regular. No murmurs, rubs, or gallops. LUNGS: Clear to auscultation bilaterally. No wheeze, rales, or rhonchi. ABDOMEN: Bowel sounds are positive, soft, nontender and nondistended. EXTREMITIES: no cyanosis, clubbing or edema. Myocardial stress test results are pending. ASSESSMENT: 1. Chest pain, most likely for anxiety. 2. Pace maker. 3. Fibromyalgia. 4. Irritable bowel syndrome. 5. Spinal stenosis. 6. Depression. 7. Anxiety. 8. Migraine headaches. PLAN: The patient is currently comfortable. Her blood pressure is better controlled. She is on Keppra for seizures. She is on Klonopin. She is going to continue Lyrica for her neuropathy. She was started on Norvasc for hypertension. She is going to continue Paxil for anxiety, she use Percocet for pain. We will speak to Dr. Faye regarding the case. If the patient gets cleared by him, I will able to be able to discharge the patient home. Condition stable. Activities increase as tolerated. Felice Zuleta MD
[2017-02-05] MEDS: Apap-Butalbital-Caffeine 325-50-40mg Tab PO PRN ×2 (14:53→20:43)
--- NOTE | 2017-02-06 01:53 | CP.PCM.PN ---
Subjective - Date & Time of Evaluation Date of Evaluation: 02/05/17 Time of Evaluation: 22:00 - Subjective Subjective: called by nurse pt,s bp is 220/128. HR is 90 .pt has hx of anxiety htn and sinus infection uti is on clonidine 0.1 mg bid also has symtomatic bradycardia with pace maker placed in . pt denies cp sob no fever . Objective - Vital Signs/Intake and Output Vital Signs (last 24 hours): Temp Pulse Resp BP Pulse Ox 100.7 F H 90 16 222/103 H 96 02/05/17 22:28 02/05/17 22:28 02/05/17 18:00 02/05/17 22:28 02/05/17 06:00 Intake and Output: 02/05/17 02/06/17 18:59 06:59 Intake Total 240 Output Total 400 Balance -160 - Medications Medications: Current Medications Acetaminophen (Tylenol 325mg Tab) 650 mg PO Q4H PRN PRN Reason: Fever >100.4 F Last Admin: 02/05/17 22:28 Dose: 650 mg Acetaminophen/Butalbital/Caffeine (Fioricet) 1 tab PO Q6H PRN PRN Reason: Headache Last Admin: 02/05/17 20:43 Dose: 1 tab Clonazepam (Klonopin) 1 mg PO QID [facility] PRN Reason: Protocol Last Admin: 02/05/17 22:28 Dose: 1 mg Levetiracetam (Keppra) 500 mg PO TID [facility] Last Admin: 02/05/17 18:18 Dose: 500 mg Meclizine HCl (Antivert) 25 mg PO Q6H [facility] Last Admin: 02/05/17 20:43 Dose: 25 mg Midodrine (Proamatine) 5 mg PO TID PRN PRN Reason: for SBP<95 Ondansetron HCl (Zofran Inj) 4 mg IVP Q4H PRN PRN Reason: Nausea/Vomiting Last Admin: 02/05/17 13:29 Dose: 4 mg Oxycodone/Acetaminophen (Percocet 10/325 Mg Tab) 1 tab PO QID PRN PRN Reason: Pain, severe (8-10) Last Admin: 02/05/17 11:57 Dose: 1 tab Paroxetine HCl (Paxil) 20 mg PO DAILY [facility] Last Admin: 02/05/17 11:03 Dose: 20 mg Pregabalin (Lyrica) 75 mg PO TID [facility] Last Admin: 02/05/17 18:18 Dose: 75 mg - Constitutional Appears: No Acute Distress - Head Exam Head Exam: NORMOCEPHALIC - Eye Exam Eye Exam: PERRL Pupil Exam: PERRL - ENT Exam ENT Exam: Mucous Membranes Moist - Neck Exam Neck Exam: Full ROM - Respiratory Exam Respiratory Exam: NORMAL BREATHING PATTERN - Cardiovascular Exam Cardiovascular Exam: RRR, +S1, +S2 - GI/Abdominal Exam GI & Abdominal Exam: Soft, Normal Bowel Sounds - Rectal Exam Rectal Exam: Deferred - Neurological Exam Neurological Exam: Alert, Awake, CN II-XII Intact, Oriented x3 - Psychiatric Exam Psychiatric exam: Anxious - Skin Skin Exam: Dry, Warm Assessment and Plan - Assessment and Plan (Free Text) Assessment: hypertensive urgency /hx of htn with extreme variation in bp . anxiety / with drawl effect of meds. Plan: clonapin 1 mg x1 . lisinopril 10 mg po x1.
[2017-02-06] MEDS: Apap-Butalbital-Caffeine 325-50-40mg Tab PO PRN ×2 (01:58→08:38)
--- NOTE | 2017-02-06 05:42 | DS ---
HISTORY OF PRESENT ILLNESS: This is a 46-year-old female who had come into the hospital with atypical chest pain. The patient was admitted for further evaluation. She was seen by Dr. Brown, had stress test done. After the stress test the patient had elevated blood pressure and she does get anxious and so I thought that this is most likely from anxiety. She does have labile blood pressure, and using her antihypertensive medications causes her blood pressure to decrease significantly. The patient had stress test that showed an essentially normal myocardial perfusion study, EF is 75%. She feels better today and she is going to be discharged home. She has no complaints of any headache, no dizziness, no nausea, no vomiting. She was given IV fluids yesterday as well. PHYSICAL EXAMINATION: VITAL SIGNS: Temperature is 97.6, pulse is 60, blood pressure 114/60, respirations 20 and O2 saturation 96%. GENERAL: The patient is lying in bed, flat, comfortable. HEENT: No oral lesion. Anicteric sclerae. Moist mucosa. NECK: No JVD, adenopathy, or thyromegaly. CARDIOVASCULAR: S1 and S2, regular. No murmurs, rubs, or gallops. LUNGS: Clear to auscultation bilaterally. No wheeze, rales, or rhonchi. ABDOMEN: Bowel sounds are positive, soft, nontender and nondistended. EXTREMITIES: No cyanosis, clubbing or edema. ASSESSMENT: 1. Chest pain secondary to anxiety. 2. Fibromyalgia. 3. Spinal stenosis. 4. Irritable bowel syndrome. 5. Depression. 6. Anxiety. 7. Migraine headaches. PLAN: The patient is currently comfortable. The patient is on Lyrica for neuropathy and Klonopin. The patient will continue Keppra for her seizures. She is on Paxil. She was started on amlodipine, but that has been discontinued because of hypotension. The patient is on Percocet for pain. She is going to continue with Paxil. She has been cleared by Dr. Faye to be discharged home. Felice Zuleta MD
[2017-02-06 07:00] LABS: BASO # 0.03 K/mm3 (0.0-2.0); BASO % 0.4 % (0.0-3.0); EOS # 0.3 (0.0-0.7); EOS % 3.2 % (1.5-5.0); GRAN # 2.47 (1.4-6.5); GRAN % 29.4 % (50.0-68.0); HEMOGLOBIN 10.8 g/dL (12.0-16.0); LYMPH # 5.1 (1.2-3.4); LYMPH % 60.7 % (22.0-35.0); MEAN CELL VOLUME 59.1 fl (80.0-105.0); MEAN CORPUSCULAR HEMOGLOBIN 18.8 pg (25.0-35.0); MEAN CORPUSCULAR HGB CONC 31.8 g/dl (31.0-37.0); MONO # 0.5 (0.1-0.6); MONO % 6.3 % (1.0-6.0); PLATELET COUNT 264 10^3/uL (120.0-450.0); RBC 5.75 10^6/uL (3.5-6.1); RED CELL DISTRIBUTION WIDTH 17.3 % (11.5-14.5); WHITE BLOOD COUNT 8.4 10^3/ul (4.5-11.0)
[2017-02-06 07:16] LABS: ALB/GLOB RATIO 1.1 (1.1-1.8); ALBUMIN 4.2 g/dL (3.0-4.8); ALT/SGPT 88 U/L (7-56); AST/SGOT 73 U/L (15-39); BLOOD UREA NITROGEN 13 mg/dL (7-21); CALCIUM 9.2 mg/dL (8.4-10.5); GFR AFRICAN-AMERICAN > 60; GFR NON-AFRICAN AMERICAN > 60; MAGNESIUM 1.8 mg/dL (1.7-2.2)
--- NOTE | 2017-02-06 08:21 | PN ---
DATE: REASON FOR FOLLOWUP: Cardiac evaluation and chest pain. HISTORY: The patient is lying flat, feeling better. No chest pain, no shortness of breath, or palpitation. OBJECTIVE GENERAL: Lying comfortable on the bed. VITAL SIGNS: As follows. Temperature afebrile, heart rate 60, blood pressure 114/68. HEENT: PERRLA. Extraocular muscles intact. NECK: Supple. No carotid bruits or thyromegaly. CHEST: Clear to auscultation. HEART: S1 and S2, regular. ABDOMEN: Soft. EXTREMITIES: Clubbing and cyanosis negative. LABORATORY DATA: Blood workup as follows. WBC 8.8, hemoglobin 12.2, hematocrit 37.5, platelet count 273. Chemistry shows sodium 140, potassium 4, chloride 103, carbon dioxide 22, anion gap of 19, BUN 23, creatinine 1.0. IMPRESSION: A 46-year-old female with past medical history significant for multiple medical problems including cervical radiculopathy, status post pacemaker, chest pain, underwent a stress test, essentially negative, nonobstructive coronary artery disease, history of cardiac catheterization. Yesterday, the patient with hypotension, bolus saline was given. Saline was started now. The patient is normotensive. Denies any chest pain. History of labile high blood pressure, history of vasovagal syncope. RECOMMENDATION: We will discontinue IV fluid, out of bed to chair. Check the orthostatics, if stable, possible discharge home today. We will also put ProAmatine, if blood pressure goes below 90, we will follow with you. Thank you for evaluating and taking care of your patient. Sam Faye MD
--- NOTE | 2017-02-06 09:15 | PN ---
DATE: 02/06/2017 SUBJECTIVE: The patient has no complaints of any chest pain, no shortness of breath. She does complaint of dizziness. She states she feels weak and tired. She is difficulty in walking. PHYSICAL EXAMINATION: VITAL SIGNS: Temperature is 100.7, pulse of 90, blood pressure is *------*, respirations is 16. GENERAL: The patient is lying in bed, flat, comfortable. HEENT: No oral lesion. Anicteric sclerae. Moist mucosa. NECK: No JVD, adenopathy, or thyromegaly. CARDIOVASCULAR: S1 and S2, regular. No murmurs, rubs, or gallops. LUNGS: Clear to auscultation bilaterally. No wheeze, rales, or rhonchi. ABDOMEN: Bowel sounds are positive, soft, nontender and nondistended. EXTREMITIES: No cyanosis, clubbing or edema. ASSESSMENT: 1. Hypotension, uncontrolled. 2. Chest pain secondary to anxiety. 3. Fibromyalgia. 4. Irritable bowel syndrome. 5. Migraine headaches. 6. Depression. 7. Anxiety. PLAN: The patient has significant anxiety causing her blood pressure to increase. The patient was given a dose of Klonopin. She is on Antivert. She is on Keppra for her seizures. The patient is on Paxil for anxiety. She is going to continue with Percocet for her pain. She is on a heart healthy diet. If her blood pressure is improved and she is able to ambulate, we will discharge the patient home. See the yesterday's discharge summary. Felice Zuleta MD
[2017-02-06] MEDS ORDERED: Potassium Chloride 20 mEq ER Tab PO ONE (12:08)
--- NOTE | 2017-02-06 13:21 | PN ---
DATE OF PROGRESS NOTE: 02/06/2017 LOCATION: The patient in room 166, bed 2. REASON FOR CONSULTATION: Followup chest pain. SUBJECTIVE: The patient denies any chest pain, shortness of breath, palpitation. The patient is lying comfortably in bed at present. PHYSICAL EXAMINATION: VITAL SIGNS: Blood pressure 196/96, yesterday evening pressure was 114/68, respiration 20, pulse 81, temperature 98.9. HEENT: Head is normocephalic. Eyes, pupils normal. Conjunctivae normal. Nose and throat normal. NECK: JVP low. Carotid equal. Thorax, AP diameter normal. LUNGS: Clear. CARDIOVASCULAR: S1 and S2. ABDOMEN: Soft, nontender. No organomegaly. Bowel sound normal. EXTREMITIES: No clubbing. No cyanosis. LABORATORY DATA: WBC 8.4, hemoglobin 10.8, hematocrit 34.0, platelet 264. Sodium 142, potassium 3.5, BUN 30, creatinine 0.7, random sugar was 113, calcium, phosphorus and magnesium normal. AST 73, ALT 88, total protein 8.1, albumin 4.2. DIAGNOSES: Chest pain which has improved. Stress test on this admission negative, history of cervical radiculopathy status post pacemaker insertion. The patient also had cardiac catheterization recently which was nonobstructive coronary artery disease. At times the patient's blood pressure is high, other times the patient's blood pressure is low. PLAN: The patient is put on ProAmatine if blood pressure is below 90 then it will be given. If blood pressure stays high then the patient will be treated for that. If her potassium is low we will give her potassium therapy and followup labs. The patient is on Keppra 500 mg p.o. t.i.d., Klonopin 1 mg q.i.d., Lyrica 75 mg t.i.d., Paxil 20 mg p.o. daily, midodrine which is ProAmatine 5 mg p.o. t.i.d. p.r.n., lisinopril was given stat one dose before. We will give her K-Dur 40 p.o. today. Repeat labs in the morning. We will follow. Sam Licona MD
[2017-02-06 18:24] VITALS: BP 143/78; PULSE 92; RESP 19; TEMP 98.6; O2SAT 97
== END 2017-02-06 18:25 | disposition home health service (06) | DRG 880 ==
LOC: ED 19:25 → ERH 23:49 → 2RNO 02-03 02:20 → OBSVTOIN 02-04 14:51 → 5RNO 02-05 21:44
PROVIDERS: ADMIT Internal Medicine Nephrology; ATTEND Internal Medicine Nephrology
DX: F41.9 Anxiety disorder, unspecified (principal); I16.0 Hypertensive urgency; R07.89 Other chest pain; G62.9 Polyneuropathy, unspecified; F32.9 Major depressive disorder, single episode, unspecified; I95.9 Hypotension, unspecified; K58.9 Irritable bowel syndrome, unspecified; M79.7 Fibromyalgia; M48.00 Spinal stenosis, site unspecified; G43.909 Migraine, unspecified, not intractable, without status migrainosus; J32.9 Chronic sinusitis, unspecified; M72.2 Plantar fascial fibromatosis; G40.909 Epilepsy, unspecified, not intractable, without status epilepticus; M54.12 Radiculopathy, cervical region; G89.29 Other chronic pain; M54.16 Radiculopathy, lumbar region; I25.10 Atherosclerotic heart disease of native coronary artery without angina pectoris; Z95.0 Presence of cardiac pacemaker; Z86.73 Personal history of transient ischemic attack (TIA), and cerebral infarction without residual deficits; Z87.440 Personal history of urinary (tract) infections; N80.9 Endometriosis, unspecified

== ENCOUNTER 2017-03-05 14:55 | Emergency (ER) | payer MEDICARE, OTHER ==
[2017-03-05 14:55] VITALS: BMI 34.7
[2017-03-05 15:13] VITALS: BP 158/82; RESP 18; TEMP 98.2; O2SAT 99
[2017-03-05 15:55] VITALS: PULSE 69
[2017-03-05 16:02] LABS: BASO # 0.03 K/mm3 (0.0-2.0); BASO % 0.5 % (0.0-3.0); EOS # 0.2 (0.0-0.7); GRAN # 2.24 (1.4-6.5); HEMATOCRIT 33.8 % (36.0-48.0); LYMPH # 2.7 (1.2-3.4); LYMPH % 48.3 % (22.0-35.0); MEAN CELL VOLUME 59.7 fl (80.0-105.0); MEAN CORPUSCULAR HEMOGLOBIN 19.3 pg (25.0-35.0); MEAN CORPUSCULAR HGB CONC 32.2 g/dl (31.0-37.0); MONO # 0.5 (0.1-0.6); MONO % 8.2 % (1.0-6.0); PLATELET COUNT 265 10^3/uL (120.0-450.0); WHITE BLOOD COUNT 5.6 10^3/ul (4.5-11.0)
--- NOTE | 2017-03-05 16:13 | ED PDOC ---
Arrival/HPI - General Chief Complaint: Chest Pain Time Seen by Provider: 03/05/17 15:12 Historian: Patient - History of Present Illness Narrative History of Present Illness (Text): 03/05/17 16:09 Patient with history of anxiety, depression, fibromyalgia, spinal stenosis, PPM insertion, IBS, endometrosis, presents to the emergency room for three-day history of painful red nonpruritic rash to the upper back, under her bilateral breast, in the posterior aspect of her knees. Patient states that she has had cellulitis in the past and wants to make sure she doesn't have it today. Reports not using any medications to treat her symptoms. Reports not taking any new medications, eating anything new, changing her soaps or lotions. She adds that she has never had this rash before. Of note, patient also reports left sided intermittent sharp chest pain associated with pain to the left arm, symptoms are worse with movement and with palpation. Patient states that she has had similar episodes of chest pain in the past. Otherwise: (-) radiation, (-) diaphoresis, (-) dyspnea, (-) pleuritic component, (-) ripping or tearing quality, (-) positional component, (-) exertional component, (-) dizziness, (-) syncope, (-) nausea, (-) vomiting, (-) calf swelling/pain, (-) neuro deficits, (-) recent travel. PMWillian Licona Past Medical History - Provider Review Nursing Documentation Reviewed: Yes - Past History Past History: No Previous - Infectious Disease Hx of Infectious Diseases: None - Tetanus Immunization Tetanus Immunization: Unknown - Cardiac Hx Cardiac Disorders: Yes Hx Hypertension: Yes Hx Internal Defibrillator: Yes Hx Pacemaker: Yes - Pulmonary Hx Respiratory Disorders: No - Neurological Hx Neurological Disorder: Yes HX Cerebrovascular Accident: Yes Hx Dizziness: Yes Hx Seizures: Yes - HEENT Hx HEENT Disorder: No - Renal Hx Renal Disorder: No - Endocrine/Metabolic Hx Endocrine Disorders: No - Hematological/Oncological Hx Blood Disorders: Yes Hx Anemia: Yes - Integumentary Hx Dermatological Disorder: No - Musculoskeletal/Rheumatological Hx Musculoskeletal Disorders: Yes Hx Back Pain: Yes Hx Falls: Yes Hx Fractures: Yes Hx Spinal Stenosis: Yes - Gastrointestinal Hx Gastrointestinal Disorders: No - Genitourinary/Gynecological Hx Genitourinary Disorders: Yes Hx Urinary Tract Infection: Yes - Psychiatric Hx Psychophysiologic Disorder: Yes Hx Anxiety: Yes Hx Substance Use: No - Surgical History Hx Cardiac Catheterization: Yes - Anesthesia Hx Anesthesia: Yes Hx Anesthesia Reactions: No Hx Malignant Hyperthermia: No - Suicidal Assessment Feels Threatened In Home Enviroment: No Family/Social History - Physician Review Nursing Documentation Reviewed: Yes Family/Social History: Unknown Family HX Smoking Status: Never Smoked Hx Alcohol Use: No Hx Substance Use: No Hx Substance Use Treatment: No Allergies/Home Meds Allergies/Adverse Reactions: Allergies atorvastatin [From Lipitor] Allergy (Verified 03/05/17 15:06) NAUSEA gabapentin Allergy (Verified 03/05/17 15:06) RASH metoclopramide HCl [From Reglan] Allergy (Verified 03/05/17 15:06) ANGIOEDEMA trimethobenzamide HCl [From Tigan] Allergy (Verified 03/05/17 15:06) ANGIOEDEMA Home Medications: Home Meds Medication Instructions Recorded Confirmed Levetiracetam [Keppra] 500 mg PO TID 06/01/15 02/02/17 Pregabalin [Lyrica] 75 mg PO TID 11/12/15 03/05/17 Omeprazole Magnesium [Prilosec Otc] 40 mg PO DAILY 04/17/16 03/05/17 Ibuprofen [Motrin Tab] 800 mg PO Q8 PRN 07/11/16 03/05/17 Cyclobenzaprine [Flexeril] 10 mg PO PRN PRN 10/22/16 03/05/17 cloNIDine [Catapres] 0.1 mg PO BID 12/06/16 03/05/17 Review of Systems - Review of Systems Constitutional: Normal. absent: Fatigue, Weight Change, Fevers ENT: Normal. absent: Hearing Changes, Tinnitus, Sore Throat Respiratory: Normal. absent: SOB, Cough, Sputum Cardiovascular: Normal, Chest Pain. absent: Palpitations, Edema Musculoskeletal: Normal. absent: Arthralgias, Back Pain, Neck Pain Skin: Normal, Rash. absent: Pruritis, Skin Lesions Physical Exam - Physical Exam Narrative Physical Exam (Text): 03/05/17 16:13 GENERAL APPEARANCE: Patient is awake, alert, oriented x 3, in no acute distress , laying comfortably in bed. SKIN: Warm, dry; (-) cyanosis, (+) erythematous pustular rash to the upper back , under b/l breast, posterior b/l knees. EYES: (-) conjunctival pallor. ENMT: Mucous membranes moist. NECK: (-) tenderness, (-) stiffness, (-) lymphadenopathy, (-) JVD. CHEST AND RESPIRATORY: (-) rash, (+) L sided upper chest wall tenderness. Lungs: (-) rales, (-) rhonchi, (-) wheezes, (-) rub; breath sounds equal bilaterally. HEART AND CARDIOVASCULAR: (-) irregularity; (-) murmur, (-) gallop, (-) rub. ABDOMEN AND GI: Soft; (-) distention, (-) tenderness, (-) palpable pulsatile mass. EXTREMITIES: (-) deformity; (-) edema, (-) calf tenderness. (+) distal pulses. NEURO AND PSYCH: Mental status as above. Cranial nerves grossly intact; strength symmetric. Vital Signs Temp Pulse Pulse Resp BP BP Pulse Ox 03/05/17 15:53 69 158/82 H 03/05/17 15:09 98.2 F 71 18 158/82 H 99 Medical Decision Making ED Course and Treatment: 03/05/17 16:14 46 yo F with history of anxiety, depression, fibromyalgia, spinal stenosis, PPM insertion, IBS, endometrosis, presents to the emergency room for three-day history of painful red nonpruritic rash to the upper back, under her bilateral breast, in the posterior aspect of her knees. Patient also reports left sided intermittent sharp chest pain associated with pain to the left arm, worse with movement and with palpation. Previous medical records reviewed : patient last seen in this ED on 02/02/17 with c/o CP, was kept for inpatient observed to [facility] for CP, her trop was (-), her ekg was 60 paced. During that visit, patient had stated that she had a cardiac cath in Jun which showed 50% blockage. During her observation stay, she had a stress lexiscan by Dr. Faye on 02/04/17. It was documented that her IV lexiscan was negative for ischemia and chest pain. As per report : conclusion: 1.normal SPECT myocardial perfusion study 2. normal gated wall motion of the L ventricle. Plan: -- Labs -- EKG -- CXR -- Reassess and disposition -- Consult with Monae EKG: NSR at 74 bpm, normal axis, (-) acute ST changes, as read by PA. CXR : NAD, as read by PA Lab results reviewed, troponin negative. Diagnostic results d/w the patient in great detail. On reevaluation, patient is laying in bed comfortably in no acute distress. Patient reports no chest pain, shortness of breath, palpitations, diaphoresis, dizziness or dyspnea. VSS. Case d/w Dr. Licona, who is very familiar with the patient and states agrees with plan for outpatient follow up, recommends no further intervention in the ER or observation in the hospital. Patient notified of plan for outpatient follow up, which she is comfortable with. Advised to follow up with her obstetrics scrub nurse and primary care physician in 1 -2 days without fail. Advised to take medication as prescribed. Return to the emergency room at any time for any new or worsening symptoms. Patient states she fully agrees with and understands discharge instructions. States that she agrees with the plan and disposition. Verbalized and repeated discharge instructions and plan. I have given the patient opportunity to ask any additional questions. - Lab Interpretations Lab Results: 03/05/17 15:50 03/05/17 15:50 Lab Results 03/05/17 15:50: Sodium 142, Potassium 4.0, Chloride 109 H, Carbon Dioxide 23, Anion Gap 14, BUN 13, Creatinine 0.7, Est GFR ( Amer) > 60, Est GFR (Non- Af Amer) > 60, Random Glucose 101, Calcium 9.3, Magnesium 1.8, Total Bilirubin 0.4, AST 42 H, ALT 25, Alkaline Phosphatase 102, Lactate Dehydrogenase 581, Total Creatine Kinase 124, Troponin I < 0.01 D, Total Protein 7.6, Albumin 4.3 , Globulin 3.4, Albumin/Globulin Ratio 1.3 03/05/17 15:50: WBC 5.6 D, RBC 5.66, Hgb 10.9 L, Hct 33.8 L, MCV 59.7 L, MCH 19.3 L, MCHC 32.2, RDW 19.0 H, Plt Count 265, Gran % 40.0 L, Lymph % (Auto) 48.3 H, [place] % (Auto) 8.2 H, Eos % (Auto) 3.0, Baso % (Auto) 0.5, Gran # 2.24, Lymph # 2.7, [place] # 0.5, Eos # 0.2, Baso # 0.03 - RAD Interpretation Radiology Orders: 03/05/17 15:29 CHEST PORTABLE [RAD] Stat - PA / CYBER SPECIAL AGENT / Resident Statement MD/DO has reviewed & agrees with the documentation as recorded. Disposition/Present on Arrival - Present on Arrival Any Indicators Present on Arrival: No History of DVT/PE: No History of Uncontrolled Diabetes: No Urinary Catheter: No History of Decub. Ulcer: No History Surgical Site Infection Following: None - Disposition Have Diagnosis and Disposition been Completed?: Yes Diagnosis: Chest pain, Rash Disposition: HOME/ ROUTINE Disposition Time: 17:00 Patient Plan: Discharge Condition: STABLE Discharge Instructions (ExitCare): Chest Pain (ED) Print Language: GIBRALTARIAN Additional Instructions: Thank you for letting us take care of you today. You were treated for rash, chest pain. The emergency medical care you received today was directed at your acute symptoms. If you were prescribed any medication, please fill it and take as directed. It may take several days for your symptoms to resolve. Return to the Emergency Department if your symptoms worsen, do not improve, or if you have any other problems. Please contact your doctor in 2 days for re-evaluation and follow up / or call one of the physicians/clinics you have been referred to that are listed on the Patient Visit Information form that is included in your discharge packet. Bring any paperwork you were given at discharge with you along with any medications you are taking to your follow up visit. Our treatment cannot replace ongoing medical care by a primary care provider (PCP) outside of the emergency department. Thank you for allowing the [facility] team to be part of your care today. Prescriptions: Cetirizine HCl [Zyrtec] 10 mg PO DAILY #30 capsule Hydrocortisone Angelica 0.2% Cr [Westcort] 1 ea TP BID #15 tube Referrals: Baljinder Reno MD [Primary Care Provider] - Follow up with primary Forms: [employer] (Italian)
[2017-03-05 16:17] LABS: ALB/GLOB RATIO 1.3 (1.1-1.8); ALKALINE PHOSPHATASE 102 U/L (38-126); ALT/SGPT 25 U/L (7-56); AST/SGOT 42 U/L (14-36); BILIRUBIN,TOTAL 0.4 mg/dL (0.2-1.3); BLOOD UREA NITROGEN 13 mg/dL (7-21); CALCIUM 9.3 mg/dL (8.4-10.5); CARBON DIOXIDE 23 mmol/L (21-33); CHLORIDE 109 mmol/L (98-107); GFR AFRICAN-AMERICAN > 60; GLUCOSE,RANDOM 101 mg/dL (70-110); MAGNESIUM 1.8 mg/dL (1.7-2.2); SODIUM 142 mmol/L (132-148); TOTAL PROTEIN 7.6 g/dL (5.8-8.3)
[2017-03-05 16:29] LABS: TROPONIN I < 0.01 ng/mL
--- NOTE | 2017-03-05 17:28 | RAD ---
HISTORY: Chest pain, portable study 15:54. COMPARISON: No prior. FINDINGS: LUNGS: No active pulmonary disease. PLEURA: No significant pleural effusion identified, no pneumothorax apparent. CARDIOVASCULAR: No radiographic findings to suggest acute or significant cardiovascular disease. Position/ configuration of pacemaker device: Satisfactory. OSSEOUS STRUCTURES: No significant abnormalities. VISUALIZED UPPER ABDOMEN: Normal. OTHER FINDINGS: None. IMPRESSION: No active disease. No significant interval change compared to the prior examination(s).
--- NOTE | 2017-03-06 21:05 | CARD ---
APPROVED REPORT EKG Measurement Heart [id number] <Conclusion> Normal sinus rhythm Normal ECG
== END 2017-03-05 17:58 | disposition home or self-care (01) ==
LOC: ED 14:55
DX: R07.9 Chest pain, unspecified (principal); R21 Rash and other nonspecific skin eruption; I10 Essential (primary) hypertension; Z86.73 Personal history of transient ischemic attack (TIA), and cerebral infarction without residual deficits; Z95.0 Presence of cardiac pacemaker

== ENCOUNTER 2017-06-29 18:38 | Inpatient (IN) | payer MEDICARE, OTHER ==
[2017-06-29 18:54] VITALS: BMI 31.6
[2017-06-29] MEDS ORDERED: Sodium Chloride 0.9% 500 ML IV STA (19:06)
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
[2017-06-29 19:17] LABS: BASO # 0.03 K/mm3 (0.0-2.0); BASO % 0.4 % (0.0-3.0); EOS # 0.2 (0.0-0.7); EOS % 2.3 % (1.5-5.0); GRAN # 3.07 (1.4-6.5); HEMOGLOBIN 11.1 g/dL (12.0-16.0); LYMPH % 50.3 % (22.0-35.0); MEAN CELL VOLUME 60.7 fl (80.0-105.0); MEAN CORPUSCULAR HEMOGLOBIN 19.6 pg (25.0-35.0); MEAN CORPUSCULAR HGB CONC 32.4 g/dl (31.0-37.0); MEAN PLATELET VOLUME 9.5 fl (7.0-11.0); MONO # 0.6 (0.1-0.6); RBC 5.65 10^6/uL (3.5-6.1); RED CELL DISTRIBUTION WIDTH 17.3 % (11.5-14.5); WHITE BLOOD COUNT 7.9 10^3/ul (4.5-11.0)
[2017-06-29 19:26] LABS: ALBUMIN 4.5 g/dL (3.0-4.8); CALCIUM 9.2 mg/dL (8.4-10.5); GFR AFRICAN-AMERICAN > 60; GFR NON-AFRICAN AMERICAN 59
[2017-06-29 19:40] LABS: B-TYPE NATRIURETIC PEPTIDE 397 pg/mL (0-450); TROPONIN I < 0.01 ng/mL
[2017-06-29 19:51] LABS: ALB/GLOB RATIO 1.1 (1.1-1.8); ALT/SGPT 45 U/L (7-56); AST/SGOT 41 U/L (14-36); BLOOD UREA NITROGEN 22 mg/dL (7-21)
[2017-06-30] MEDS: Oxycodone/Acetaminophen 10/325 mg Tab PO PRN ×4 (01:40→21:39)
[2017-06-30] MEDS: Pantoprazole 40 mg EC Tab PO SCH (05:18)
--- NOTE | 2017-06-30 08:44 | RAD ---
HISTORY: Chest pain COMPARISON: 03/05/2017. FINDINGS: LUNGS: The lungs are clear. PLEURA: No significant pleural effusion identified, no pneumothorax apparent. CARDIOVASCULAR: There is mild cardiomegaly. There is stable position of left-sided dual lead transvenous permanent pacing device. OSSEOUS STRUCTURES: No significant abnormalities. VISUALIZED UPPER ABDOMEN: Normal. OTHER FINDINGS: None. IMPRESSION: No acute findings.
--- NOTE | 2017-06-30 09:49 | CARD ---
APPROVED REPORT EKG Measurement Heart [id number] <Conclusion> Electronic atrial pacemaker Moderate voltage criteria for LVH, may be normal variant Borderline ECG
[2017-06-30 10:40] LABS: BASO # 0.03 K/mm3 (0.0-2.0); BASO % 0.4 % (0.0-3.0); EOS # 0.2 (0.0-0.7); EOS % 2.6 % (1.5-5.0); GRAN # 2.94 (1.4-6.5); GRAN % 40.2 % (50.0-68.0); HEMOGLOBIN 10.4 g/dL (12.0-16.0); LYMPH # 3.8 (1.2-3.4); LYMPH % 51.5 % (22.0-35.0); MEAN CELL VOLUME 60.5 fl (80.0-105.0); MEAN CORPUSCULAR HEMOGLOBIN 19.2 pg (25.0-35.0); MEAN CORPUSCULAR HGB CONC 31.7 g/dl (31.0-37.0); MONO # 0.4 (0.1-0.6); MONO % 5.3 % (1.0-6.0); PLATELET COUNT 268 10^3/uL (120.0-450.0); RBC 5.42 10^6/uL (3.5-6.1); RED CELL DISTRIBUTION WIDTH 17.3 % (11.5-14.5); WHITE BLOOD COUNT 7.3 10^3/ul (4.5-11.0)
[2017-06-30 10:44] LABS: BLOOD UREA NITROGEN 19 mg/dL (7-21); CALCIUM 9.3 mg/dL (8.4-10.5); GFR AFRICAN-AMERICAN > 60; GFR NON-AFRICAN AMERICAN > 60
[2017-06-30 10:56] LABS: TROPONIN I < 0.01 ng/mL
[2017-06-30] MEDS ORDERED: Potassium Chloride 20 mEq ER Tab PO ONE (12:47)
--- NOTE | 2017-06-30 15:16 | CON ---
DATE: 06/30/2017 Cardiac Evaluation. Admitted with near syncope, 3 episodes. BRIEF CLINICAL HISTORY: This is a 47-year-old female with past medical history significant for seizure disorder, hypertension, chronic back pain, history of cervical radiculopathy, history of cervical plating in 2000, endometriosis, migraine, anxiety disorder, spinal stenosis, chronic bronchitis, chronic urinary tract infection, CVA, history of pacemaker year and half ago at [facility], admitted with 3 episodes of syncope. Patient said 8 o'clock while going to kitchen, she felt dizzy, almost passed out and she did not consider to come to the hospital. Then, later at 2 o'clock, again same episode happened; then again same episode at 5 o'clock, so patient decided to come to the Emergency Room and get admitted at the Emergency Room for syncope. PAST MEDICAL HISTORY: Significant for seizure disorder, chronic back pain in the body, chronic dizziness, hypertension, cervical and lumbar radiculopathy, status post cervical plating in 2000, intermittent migraine, anxiety disorder, recurrent UTI, history of CVA, history of bronchitis, sinusitis, history of recurrent syncope, status post pacemaker at [facility] year and half ago, fibromyalgia, pacemaker interrogation in 06/2016, found to be normal functioning. PREVIOUS CARDIAC WORKUP: As follows. The patient had recently cardiac catheterization on 07/14/2016 that shows nonobstructive coronary artery disease; LAD, mild disease; RCA moderate disease; ejection fraction 55%; ejection fraction preserved. Last stress test on 07/10/2016, suspicious ischemia, following which patient had cardiac catheterization. Last echo on 08/28/2014, normal. Last interrogation, pacemaker on 06/2016, normal functioning battery life 8 to 10 years. Repeat stress test on 02/03/2017, that showed essentially normal myocardial perfusion study, ejection fraction of 75% dated on 02/03/2017. CURRENT MEDICATIONS: The patient is taking at home, clonazepam, Catapres, Lyrica, Paxil, meclizine, Keppra, Flexeril, Zyrtec, Fioricet. ALLERGIES: ATORVASTATIN, GABAPENTIN, METOCLOPRAMIDE, TRIMETHOPRIM, BENAZEPRIL AND HYDROCHLOROTHIAZIDE. REVIEW OF SYSTEMS: As per HPI. PHYSICAL EXAMINATION: VITAL SIGNS: As follows, temperature afebrile, heart rate 66, blood pressure 118/73. HEENT: PERRLA. Extraocular muscles intact. NECK: Supple. No carotid bruit or thyromegaly. CHEST: Clear to auscultation. HEART: S1 and S2, regular. ABDOMEN: Soft. EXTREMITIES: Clubbing and cyanosis negative. LABORATORY DATA: Blood workup as follows: WBC 7.3, hemoglobin 10.1 hematocrit 32.8, and platelet count 268. Chemistry shows sodium 141, potassium 3.4, chloride 108, carbon dioxide 29, anion gap of 14, BUN 19 and creatinine 0.8. Troponin is 0.01, negative x2. IMPRESSION: Syncope, rule out arrhythmia, sick sinus syndrome, cervical radiculopathy, cervical lumbar radiculopathy, status post cervical stenosis, status post plating cervical region in 2000, history of cardiac catheterization on 07/14/2016, nonobstructive coronary artery disease. Repeat stress test on 02/04/2017 that is essentially normal myocardial perfusion study, ejection fraction of 75%. Last pacemaker interrogation on 06/2016, normal functioning battery life 8-10 years. History of recurrent urinary tract infection, history of cerebrovascular accident, history of bronchitis, history of seizure disorder, history of anxiety disorder, history of fibromyalgia. RECOMMENDATIONS: 1. We will interrogate pacemaker. 2. Due to the orthostatic hypotension, to check any orthostatic or postural hypotension. We will follow with you. Further recommendation to be made after orthostatic hypotension check and pacemaker interrogation. We will follow with you. Thank you Dr. Corona/Dr. Zuleta for providing me the opportunity in taking care of patient, Jesenia Iglesias. Sam Faye MD
[2017-06-30] MEDS: Apap-Butalbital-Caffeine 325-50-40mg Tab PO PRN (18:28)
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
[2017-07-01] MEDS: Apap-Butalbital-Caffeine 325-50-40mg Tab PO PRN (01:39)
[2017-07-01] MEDS: Pantoprazole 40 mg EC Tab PO SCH (05:03)
[2017-07-01 06:30] LABS: BASO # 0.03 K/mm3 (0.0-2.0); BASO % 0.4 % (0.0-3.0); EOS # 0.2 (0.0-0.7); EOS % 3.4 % (1.5-5.0); GRAN # 2.26 (1.4-6.5); GRAN % 33.3 % (50.0-68.0); HEMOGLOBIN 10.7 g/dL (12.0-16.0); LYMPH # 3.9 (1.2-3.4); MEAN CORPUSCULAR HEMOGLOBIN 19.2 pg (25.0-35.0); MEAN CORPUSCULAR HGB CONC 31.6 g/dl (31.0-37.0); MEAN PLATELET VOLUME 9.6 fl (7.0-11.0); MONO # 0.4 (0.1-0.6); MONO % 5.9 % (1.0-6.0); RBC 5.56 10^6/uL (3.5-6.1); RED CELL DISTRIBUTION WIDTH 17.2 % (11.5-14.5); WHITE BLOOD COUNT 6.8 10^3/ul (4.5-11.0)
[2017-07-01 06:45] LABS: ALB/GLOB RATIO 1.1 (1.1-1.8); ALBUMIN 4.1 g/dL (3.0-4.8); ALT/SGPT 55 U/L (7-56); AST/SGOT 57 U/L (14-36); BLOOD UREA NITROGEN 16 mg/dL (7-21); CALCIUM 9.4 mg/dL (8.4-10.5); GFR AFRICAN-AMERICAN > 60; GFR NON-AFRICAN AMERICAN > 60; HDL CHOLESTEROL 40 mg/dL (29-60); MAGNESIUM 1.9 mg/dL (1.7-2.2)
[2017-07-01 06:52] LABS: LDL CHOLESTEROL 140 mg/dL (0-129)
[2017-07-01] MEDS: Oxycodone/Acetaminophen 10/325 mg Tab PO PRN ×3 (08:07→18:59)
--- NOTE | 2017-07-01 08:29 | CON ---
DATE: 06/30/2017 ADDENDUM FOR INITIAL CONSULTATION REASON FOR ADDENDUM: Because pacemaker interrogated and found to be normal functioning pacemaker. No arrhythmia noted. Lead impedance by atrial found to be 437 ohms, threshold for atrial lead 0.5, PVF 2.1 where as RV lead as follows. Lead impedance 399 ohms, threshold 0.4 and RV is 10.1, battery life is 8-10 years. No issues noted. No arrhythmia noted. Normal functioning pacemaker with no arrhythmia accountable for this episode of syncope. Sam Faye MD
--- NOTE | 2017-07-01 08:29 | PN ---
DATE: 07/01/2017 SUBJECTIVE: The patient has no complaints of any chest pain, no shortness of breath, no headaches. She does complain of fullness in her sinuses. She has secretions in her nose, which are chronic. ALLERGIES: THE PATIENT IS ALLERGIES TO LIPITOR, GABAPENTIN ,METOCLOPRAMIDE, AND OTHERS. PHYSICAL EXAMINATION: VITAL SIGNS: Temperature is 99.2, pulse is 76, blood pressure 169/80, respirations 19. GENERAL: The patient is lying in bed, flat, comfortable. HEENT: No oral lesion. Anicteric sclerae. Moist mucosa. NECK: No JVD, adenopathy, or thyromegaly. CARDIOVASCULAR: S1 and S2, regular. No murmurs, rubs, or gallops. LUNGS: Clear to auscultation bilaterally. No wheeze, rales, or rhonchi. ABDOMEN: Bowel sounds are positive, soft, nontender and nondistended. EXTREMITIES: No cyanosis, clubbing or edema. ASSESSMENT: 1. Syncope. 2. Bradycardia. 3. Spinal stenosis. 4. Chronic anemia. 5. Fibromyalgia. 6. Irritable bowel syndrome. 7. Depression. 8. Anxiety. 9. Migraine headaches. 10. Pacemaker. PLAN: The patient is being followed by Cardiology. She is on clonidine for hypertension. She is receiving clonazepam for anxiety. She is on Paxil as well. She is on Lyrica for her fibromyalgia. She is going to continue with Zofran as needed. She is going to have pacemaker checked. Fleice Zuleta MD
[2017-07-01] MEDS ORDERED: Potassium Chloride 20 mEq ER Tab PO ONE (08:49)
[2017-07-01 14:32] VITALS: RESP 20
--- NOTE | 2017-07-01 19:50 | PN ---
DATE: 07/01/2017 REASON FOR CONSULTATION AND FOLLOWUP: Syncope. SUBJECTIVE: The patient denies any chest pain, shortness of breath, or any palpitation. OBJECTIVE: GENERAL: Not in apparent distress. Lying flat on the bed. VITAL SIGNS: As follows, temperature afebrile, heart rate 84, and blood pressure 162/79. HEENT: PERRLA intact. NECK: Supple. No carotid bruits or thyromegaly. CHEST: Clear to auscultation. HEART: S1 and S2, regular. ABDOMEN: Soft. EXTREMITIES: Clubbing and cyanosis negative. LABORATORY DATA: Blood workup as follows: WBC 6.8, hemoglobin 10.3, hematocrit 33.9, and platelet count 268. Chemistry shows sodium 142, potassium 3.5, chloride 109, carbon dioxide 25, anion gap of 13, BUN 16, and creatinine 0.5. Troponin 0.01 x3 negative, TSH is 3.04, cholesterol total 322, LDL 140, and triglyceride 454. IMPRESSION: Syncope, rule out seizure. The patient underwent yesterday pacemaker interrogation, no evidence of arrhythmia noted, lead impedance, atrial lead 437 ohms, threshold 0.5, P-wave 2.1 millivolt, where RV lead interrogation shows lead impedance 399 ohms, threshold 0.4 and R-wave 10.1, battery life 8 to 10 years. No issues noted. No arrhythmia noted. History of last catheterization dated 07/14/2016, nonobstructive coronary artery disease, last stress test 02/03/2017 shows essentially normal myocardial perfusion study, ejection fraction 75% dated 02/03/2017, diabetes, hypertension, hyperlipidemia, history of seizure disorder, history of chronic back pain, cervical lumbar radiculopathy, history of cervical plating, cerebrovascular accident, recurrent urinary tract infection, fibromyalgia, and pacemaker. RECOMMENDATIONS: Discontinue telemetry. No further cardiac workup is planned. We will put p.r.n. hydralazine for blood pressure more than 150 systolic. We will follow with you. Thank you Dr. Zuleta for providing us the opportunity in taking care of the patient, Jesenia Iglesias. No further cardiac workup is planned or warranted. Possible discharge planning. Mohammad Yunier, MD
--- NOTE | 2017-07-02 00:06 | CP.PCM.PN ---
Subjective - Date & Time of Evaluation Date of Evaluation: 07/01/17 Time of Evaluation: 23:45 - Subjective Subjective: Patient was seen at bedside because her temp was 100.6*F, BP was 173/94. Complains of cold, congestion, sore throat, cough with phlegm. Also requests for something to help her for sleep. Has no other complaints. Has no dysuria, frequency, no skin infection. Medical record was reviewed. This 47 year old white woman was admitted with sob, dizziness, bradycardia, hypotension. Has PMH of Seizure, TIA, dizziness, melanoma,obesity, spinal stenosis of cervical spine, PTSD, multiple surgeries of neck, back, multiple orthopedic surgeries. Objective - Vital Signs/Intake and Output Vital Signs (last 24 hours): Temp Pulse Resp BP Pulse Ox 98.8 F 96 H 20 145/81 97 07/01/17 16:00 07/01/17 16:00 07/01/17 16:00 07/01/17 19:12 07/01/17 16:00 Intake and Output: 07/01/17 07/02/17 18:59 06:59 Intake Total 420 Balance 420 - Medications Medications: Current Medications Acetaminophen/Butalbital/Caffeine (Fioricet) 1 tab PO Q8H PRN PRN Reason: Headache Last Admin: 07/01/17 01:39 Dose: 1 tab Clonazepam (Klonopin) 1 mg PO QID [facility] PRN Reason: Protocol Last Admin: 07/01/17 22:34 Dose: 1 mg Clonidine HCl (Catapres) 0.1 mg PO BID [facility] Last Admin: 07/01/17 17:24 Dose: 0.1 mg Cyclobenzaprine HCl (Flexeril) 10 mg PO DAILY PRN PRN Reason: Pain, moderate (4-7) Last Admin: 07/01/17 02:50 Dose: 10 mg Hydralazine HCl (Apresoline) 10 mg PO QID PRN PRN Reason: for sbp>160 Last Admin: 07/01/17 17:22 Dose: 10 mg Levetiracetam (Keppra) 500 mg PO TID [facility] Last Admin: 07/01/17 17:22 Dose: 500 mg Loratadine (Claritin) 10 mg PO DAILY [facility] Last Admin: 07/01/17 09:33 Dose: 10 mg Ondansetron HCl (Zofran Odt) 4 mg PO Q8H PRN PRN Reason: Nausea/Vomiting Last Admin: 06/30/17 12:32 Dose: 4 mg Oxycodone/Acetaminophen (Percocet 10/325 Mg Tab) 1 tab PO QID PRN PRN Reason: Pain, severe (8-10) Last Admin: 07/01/17 18:59 Dose: 1 tab Pantoprazole Sodium (Protonix Ec Tab) 40 mg PO 0600 [facility] Last Admin: 07/01/17 05:03 Dose: 40 mg Paroxetine HCl (Paxil) 20 mg PO DAILY [facility] Last Admin: 07/01/17 09:33 Dose: 20 mg Pregabalin (Lyrica) 75 mg PO TID [facility] Last Admin: 07/01/17 17:22 Dose: 75 mg - Labs Labs: 07/01/17 06:10 07/01/17 06:10 Most Recent Lab Values WBC 6.8 10^3/ul (4.5-11.0) 07/01/17 06:10 RBC 5.56 10^6/uL (3.5-6.1) 07/01/17 06:10 Hgb 10.7 g/dL (12.0-16.0) L 07/01/17 06:10 Hct 33.9 % (36.0-48.0) L 07/01/17 06:10 MCV 61.0 fl (80.0-105.0) L 07/01/17 06:10 MCH 19.2 pg (25.0-35.0) L 07/01/17 06:10 MCHC 31.6 g/dl (31.0-37.0) 07/01/17 06:10 RDW 17.2 % (11.5-14.5) H 07/01/17 06:10 Plt Count 268 10^3/uL (120.0-450.0) 07/01/17 06:10 MPV 9.6 fl (7.0-11.0) 07/01/17 06:10 Gran % 33.3 % (50.0-68.0) L 07/01/17 06:10 Lymph % (Auto) 57.0 % (22.0-35.0) H 07/01/17 06:10 [place] % (Auto) 5.9 % (1.0-6.0) 07/01/17 06:10 Eos % (Auto) 3.4 % (1.5-5.0) 07/01/17 06:10 Baso % (Auto) 0.4 % (0.0-3.0) 07/01/17 06:10 Gran # 2.26 (1.4-6.5) 07/01/17 06:10 Lymph # 3.9 (1.2-3.4) H 07/01/17 06:10 [place] # 0.4 (0.1-0.6) 07/01/17 06:10 Eos # 0.2 (0.0-0.7) 07/01/17 06:10 Baso # 0.03 K/mm3 (0.0-2.0) 07/01/17 06:10 Sodium 143 mmol/L (132-148) 07/01/17 06:10 Potassium 3.5 mmol/L (3.6-5.0) L 07/01/17 06:10 Chloride 109 mmol/L (98-107) H 07/01/17 06:10 Carbon Dioxide 25 mmol/L (21-33) 07/01/17 06:10 Anion Gap 13 (10-20) 07/01/17 06:10 BUN 16 mg/dL (7-21) 07/01/17 06:10 Creatinine 0.7 mg/dl (0.7-1.2) 07/01/17 06:10 Est GFR ( Amer) > 60 07/01/17 06:10 Est GFR (Non-Af Amer) > 60 07/01/17 06:10 Random Glucose 126 mg/dL (70-110) H 07/01/17 06:10 Hemoglobin A1c 5.6 % (4.2-6.5) 07/01/17 06:10 Calcium 9.4 mg/dL (8.4-10.5) 07/01/17 06:10 Phosphorus 3.3 mg/dL (2.5-4.5) 07/01/17 06:10 Magnesium 1.9 mg/dL (1.7-2.2) 07/01/17 06:10 Total Bilirubin 0.4 mg/dL (0.2-1.3) 07/01/17 06:10 AST 57 U/L (14-36) H D 07/01/17 06:10 ALT 55 U/L (7-56) 07/01/17 06:10 Alkaline Phosphatase 109 U/L (38-126) 07/01/17 06:10 Troponin I < 0.01 ng/mL 06/30/17 10:10 NT-Pro-B Natriuret Pep 397 pg/mL (0-450) 06/29/17 19:08 Total Protein 7.7 g/dL (5.8-8.3) 07/01/17 06:10 Albumin 4.1 g/dL (3.0-4.8) 07/01/17 06:10 Globulin 3.6 gm/dL 07/01/17 06:10 Albumin/Globulin Ratio 1.1 (1.1-1.8) 07/01/17 06:10 Triglycerides 454 mg/dL (35-160) H 07/01/17 06:10 Cholesterol 322 mg/dL (130-200) H 07/01/17 06:10 LDL Cholesterol Direct 140 mg/dL (0-129) H 07/01/17 06:10 HDL Cholesterol 40 mg/dL (29-60) 07/01/17 06:10 TSH 3rd Generation 3.04 mIU/mL (0.46-4.68) 07/01/17 06:10 - Constitutional Appears: Well, No Acute Distress - Head Exam Head Exam: ATRAUMATIC, NORMAL INSPECTION, NORMOCEPHALIC - Eye Exam Eye Exam: Normal appearance - ENT Exam ENT Exam: Normal External Ear Exam - Neck Exam Neck Exam: Normal Inspection - Respiratory Exam Respiratory Exam: Clear to Ausculation Bilateral, NORMAL BREATHING PATTERN - Cardiovascular Exam Cardiovascular Exam: REGULAR RHYTHM. absent: JVD - GI/Abdominal Exam GI & Abdominal Exam: absent: Distended - Rectal Exam Rectal Exam: Deferred - Exam Additional comments: Deferred. - Extremities Exam Extremities Exam: Normal Inspection - Back Exam Back Exam: NORMAL INSPECTION - Neurological Exam Neurological Exam: Alert, Awake, Oriented x3 - Psychiatric Exam Psychiatric exam: Normal Affect, Normal Mood - Skin Skin Exam: Normal Color Assessment and Plan - Assessment and Plan (Free Text) Assessment: Pyrexia. URI. R/O PNA. Adjustment insomnia. Seizure. Hx TIA. Obesity. PTSD. Hx melanoma. Plan: Rocephin 1 Gm IV x 1. Septic work up as ordered. Benadryl 25 mg PO x 1. Continue present management.
[2017-07-02] MEDS ORDERED: cefTRIAXone 1 gm 1 GM/100 ML BAG IVPB STA (00:41)
[2017-07-02 01:24] LABS: BASO # 0.03 K/mm3 (0.0-2.0); BASO % 0.4 % (0.0-3.0); EOS # 0.2 (0.0-0.7); EOS % 2.5 % (1.5-5.0); GRAN # 3.16 (1.4-6.5); GRAN % 44.7 % (50.0-68.0); HEMOGLOBIN 10.7 g/dL (12.0-16.0); LYMPH # 3.3 (1.2-3.4); MEAN CELL VOLUME 61.5 fl (80.0-105.0); MEAN CORPUSCULAR HEMOGLOBIN 19.5 pg (25.0-35.0); MEAN CORPUSCULAR HGB CONC 31.7 g/dl (31.0-37.0); MONO # 0.5 (0.1-0.6); MONO % 6.4 % (1.0-6.0); PLATELET COUNT 267 10^3/uL (120.0-450.0); WHITE BLOOD COUNT 7.1 10^3/ul (4.5-11.0)
[2017-07-02 02:07] LABS: LEVETIRACETAM 24.3 mcg/mL
[2017-07-02] MEDS: Oxycodone/Acetaminophen 10/325 mg Tab PO PRN ×3 (02:15→18:05)
[2017-07-02] MEDS: Apap-Butalbital-Caffeine 325-50-40mg Tab PO PRN ×2 (06:03→20:30)
[2017-07-02] MEDS: Pantoprazole 40 mg EC Tab PO SCH (06:39)
--- NOTE | 2017-07-02 07:58 | RAD ---
HISTORY: 100.6*F COMPARISON: Portable chest 06/29/2017. TECHNIQUE: Chest PA and lateral FINDINGS: LUNGS: No active pulmonary disease. PLEURA: No significant pleural effusion identified. No pneumothorax apparent. CARDIOVASCULAR: Normal. AICD unchanged in position. OSSEOUS STRUCTURES: No significant abnormalities. VISUALIZED UPPER ABDOMEN: Normal. OTHER FINDINGS: None. IMPRESSION: No interval acute cardiopulmonary disease appreciated.
--- NOTE | 2017-07-02 10:33 | PN ---
DATE: SUBJECTIVE: The patient has no complaints of any chest pain, no shortness of breath. She says she had a fever yesterday. She feels weak and tired. She has no headaches. PHYSICAL EXAMINATION: VITAL SIGNS: Temperature is 100.6, pulse is 92, blood pressure 173/94, and respirations 20. GENERAL: The patient is lying in bed, flat, comfortable. HEENT: No oral lesion. Anicteric sclerae. Moist mucosa. NECK: No JVD, adenopathy, or thyromegaly. CARDIOVASCULAR: S1 and S2, regular. No murmurs, rubs, or gallops. LUNGS: Clear to auscultation bilaterally. No wheeze, rales, or rhonchi. ABDOMEN: Bowel sounds are positive, soft, nontender and nondistended. EXTREMITIES: No cyanosis, clubbing or edema. LABORATORY DATA: White count of 7.1 and hemoglobin of 10.7. Potassium is 3.5. Chest x-ray shows no acute interval disease. ASSESSMENT: 1. Syncope, resolved. 2. Bradycardia. 3. Spinal stenosis. 4. Fibromyalgia. 5. Chronic anemia. 6. Irritable bowel syndrome. 7. Depression. 8. Anxiety. 9. Migraine headaches. 10. Pacemaker. 11. Fever. PLAN: I will get Infectious Disease to evaluate the patient. The patient is on Claritin and is on Flexeril. The patient is going to continue with Lyrica for her fibromyalgia. She is receiving Percocet for pain. The patient is on Protonix daily. She is on Zofran. She has been on multiple antibiotics in the past, so I will hold off antibiotics until ID evaluates the patient. She is getting physical therapy. I will see if she qualifies for the Transitional Care Unit. Felice Zuleta MD
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
--- NOTE | 2017-07-02 20:45 | PN ---
DATE: 07/02/2017 LOCATION: The patient is in room 568, bed 2. REASON FOR CONSULTATION AND FOLLOWUP: Syncope, status post pacemaker insertion. SUBJECTIVE: The patient conscious, alert, lying comfortably in bed without any chest pain, shortness of breath, palpitation or dizziness. PHYSICAL EXAMINATION: VITAL SIGNS: Blood pressure 160/82, respiration 20, pulse 80, temperature 97.9. HEENT: Head is normocephalic. Eyes, pupils normal. Conjunctivae are slightly pale. NECK: JVP low. Carotids equal. THORAX: AP diameter normal. LUNGS: Clear. CARDIOVASCULAR: S1 and S2. ABDOMEN: Soft. No tenderness. No organomegaly. Bowels are normal. EXTREMITIES: No clubbing. No cyanosis. LABORATORY DATA: WBC 7.1, hemoglobin 10.7, hematocrit 33.8, and platelets 267. Sodium 143, potassium 3.5, BUN 16, creatinine 0.7, calcium 9.4, phosphorous 3.3, magnesium 1.9, bilirubin 0.4. Total protein and albumin normal. Triglyceride is 454, cholesterol 322, TSH 3.04. IMPRESSION: Syncope, rule out seizure, status post permanent pacemaker insertion, hypertension, obesity. PLAN: The patient's pacemaker has been interrogated and functioning normally. The patient had cardiac catheterization on 07/14/2016, nonobstructive coronary artery disease. Stress test on 02/03/2017 showed normal, ejection fraction 75%, diabetes mellitus, hypertension, hyperlipidemia, history of seizure disorder, history of chronic back pain, cervical lumbar radiculopathy, history of cervical plating, history of cerebrovascular accident, recurrent urinary tract infection, fibromyalgia, status post pacemaker insertion, status post interrogation, technical function normal, and hypokalemia. PLAN: The patient is on clonidine 0.1 b.i.d., Keppra 500 mg p.o. t.i.d., Lyrica 75 mg p.o. t.i.d., Paxil 20 mg daily, Protonix 40 daily, Unasyn 3 g IV q. 6 hours. We will give K-Dur 40 mEq today and repeat lab in the morning. Her blood pressure is 182/102, we increase the clonidine to 0.2 b.i.d., before the patient taking 0.1 b.i.d., we will monitor blood pressure and we will follow with you. Sam Licona MD
[2017-07-02 22:36] VITALS: TEMP 98.1; O2SAT 96
[2017-07-03] MEDS: Oxycodone/Acetaminophen 10/325 mg Tab PO PRN ×3 (00:03→13:20)
--- NOTE | 2017-07-03 04:01 | CP.PCM.PN ---
Subjective - Date & Time of Evaluation Date of Evaluation: 07/02/17 Time of Evaluation: 21:35 - Subjective Subjective: S:It was requested to order a sleeping pill. Patient has no other complaints. Medical record was reviewed. O:VSS. LUNGS: Normal breathing pattern. NEURO: Speech normal. A: Adjustment insomnia. P:Ambien 5 mg PO x 1. Objective - Vital Signs/Intake and Output Vital Signs (last 24 hours): Temp Pulse Resp BP Pulse Ox 98.1 F 82 20 145/84 96 07/02/17 16:00 07/02/17 18:06 07/02/17 16:00 07/02/17 18:06 07/02/17 16:00 Intake and Output: 07/02/17 07/03/17 18:59 06:59 Intake Total 1200 720 Balance 1200 720 - Medications Medications: Current Medications Acetaminophen (Tylenol 325mg Tab) 650 mg PO Q4H PRN PRN Reason: Temp >100.4*F Acetaminophen/Butalbital/Caffeine (Fioricet) 1 tab PO Q8H PRN PRN Reason: Headache Last Admin: 07/02/17 20:30 Dose: 1 tab Clonazepam (Klonopin) 1 mg PO QID [facility] PRN Reason: Protocol Last Admin: 07/02/17 23:12 Dose: 1 mg Clonidine HCl (Catapres) 0.2 mg PO BID [facility] Last Admin: 07/02/17 18:06 Dose: 0.2 mg Cyclobenzaprine HCl (Flexeril) 10 mg PO DAILY PRN PRN Reason: Pain, moderate (4-7) Last Admin: 07/01/17 02:50 Dose: 10 mg Hydralazine HCl (Apresoline) 10 mg PO QID PRN PRN Reason: for sbp>160 Last Admin: 07/02/17 10:01 Dose: 10 mg Ampicillin Sodium/Sulbactam (Sodium 3 gm/ Sodium Chloride) 100 mls @ 200 mls/ hr IVPB Q6 [facility] PRN Reason: Protocol Last Admin: 07/02/17 23:19 Dose: 200 mls/hr Levetiracetam (Keppra) 500 mg PO TID [facility] Last Admin: 07/02/17 18:06 Dose: 500 mg Loratadine (Claritin) 10 mg PO DAILY [facility] Last Admin: 07/02/17 10:00 Dose: 10 mg Ondansetron HCl (Zofran Odt) 4 mg PO Q8H PRN PRN Reason: Nausea/Vomiting Last Admin: 07/02/17 11:38 Dose: 4 mg Oxycodone/Acetaminophen (Percocet 10/325 Mg Tab) 1 tab PO QID PRN PRN Reason: Pain, severe (8-10) Last Admin: 07/03/17 00:03 Dose: 1 tab Pantoprazole Sodium (Protonix Ec Tab) 40 mg PO 0600 [facility] Last Admin: 07/02/17 06:39 Dose: 40 mg Paroxetine HCl (Paxil) 20 mg PO DAILY [facility] Last Admin: 07/02/17 10:00 Dose: 20 mg Pregabalin (Lyrica) 75 mg PO TID [facility] Last Admin: 07/02/17 18:06 Dose: 75 mg - Labs Labs: 07/02/17 00:10 07/01/17 06:10
[2017-07-03] MEDS: Pantoprazole 40 mg EC Tab PO SCH (06:04)
[2017-07-03] MEDS: Apap-Butalbital-Caffeine 325-50-40mg Tab PO PRN ×2 (10:02→17:56)
[2017-07-03] MEDS ORDERED: Potassium Chloride 20 mEq ER Tab PO ONE (13:13)
--- NOTE | 2017-07-03 14:05 | CP.PCM.PN ---
Subjective - Date & Time of Evaluation Date of Evaluation: 07/03/17 Time of Evaluation: 12:50 - Subjective Subjective: A little less nasal congestion, no fevers overnight. Objective - Vital Signs/Intake and Output Vital Signs (last 24 hours): Temp Pulse Resp BP Pulse Ox 98.1 F 75 20 128/75 96 07/02/17 16:00 07/03/17 09:54 07/02/17 16:00 07/03/17 09:54 07/02/17 16:00 Intake and Output: 07/03/17 07/03/17 06:59 18:59 Intake Total 1320 Balance 1320 - Medications Medications: Current Medications Acetaminophen (Tylenol 325mg Tab) 650 mg PO Q4H PRN PRN Reason: Temp >100.4*F Acetaminophen/Butalbital/Caffeine (Fioricet) 1 tab PO Q8H PRN PRN Reason: Headache Last Admin: 07/03/17 10:02 Dose: 1 tab Clonazepam (Klonopin) 1 mg PO QID [facility] PRN Reason: Protocol Last Admin: 07/03/17 09:55 Dose: 1 mg Clonidine HCl (Catapres) 0.2 mg PO BID [facility] Last Admin: 07/03/17 09:54 Dose: 0.2 mg Cyclobenzaprine HCl (Flexeril) 10 mg PO DAILY PRN PRN Reason: Pain, moderate (4-7) Last Admin: 07/01/17 02:50 Dose: 10 mg Hydralazine HCl (Apresoline) 10 mg PO QID PRN PRN Reason: for sbp>160 Last Admin: 07/02/17 10:01 Dose: 10 mg Ampicillin Sodium/Sulbactam (Sodium 3 gm/ Sodium Chloride) 100 mls @ 200 mls/ hr IVPB Q6 [facility] PRN Reason: Protocol Last Admin: 07/03/17 06:03 Dose: 200 mls/hr Levetiracetam (Keppra) 500 mg PO TID [facility] Last Admin: 07/03/17 09:54 Dose: 500 mg Loratadine (Claritin) 10 mg PO DAILY [facility] Last Admin: 07/03/17 09:54 Dose: Not Given Ondansetron HCl (Zofran Odt) 4 mg PO Q8H PRN PRN Reason: Nausea/Vomiting Last Admin: 07/02/17 11:38 Dose: 4 mg Oxycodone/Acetaminophen (Percocet 10/325 Mg Tab) 1 tab PO QID PRN PRN Reason: Pain, severe (8-10) Last Admin: 07/03/17 06:03 Dose: 1 tab Pantoprazole Sodium (Protonix Ec Tab) 40 mg PO 0600 [facility] Last Admin: 07/03/17 06:04 Dose: 40 mg Paroxetine HCl (Paxil) 20 mg PO DAILY [facility] Last Admin: 07/03/17 09:53 Dose: 20 mg Pregabalin (Lyrica) 75 mg PO TID [facility] Last Admin: 07/03/17 09:53 Dose: 75 mg - Labs Labs: 07/02/17 00:10 07/01/17 06:10 - Constitutional Appears: Non-toxic - Head Exam Head Exam: NORMAL INSPECTION - Respiratory Exam Respiratory Exam: Decreased Breath Sounds - Cardiovascular Exam Cardiovascular Exam: +S1, +S2 - GI/Abdominal Exam GI & Abdominal Exam: Soft. absent: Tenderness Assessment and Plan - Assessment and Plan (Free Text) Plan: Assessment Consider upper respiratory tract infection, pharyngitis and sinusitis S/P pacemaker placement history of seizures HTN S/P knee surgery history of CVA history of melanoma post-traumatic stress disorder history of UTI obesity with BMI 35 Plan continue Unasyn day 2 and will continue to monitor clinical response
[2017-07-03 18:03] VITALS: BP 115/70; PULSE 76
--- NOTE | 2017-07-03 18:35 | PN ---
DATE: 07/03/2017 The patient is in room 568, bed 2. REASON FOR CONSULTATION: Followup syncope, status post pacemaker insertion, hypertension. SUBJECTIVE: The patient is lying comfortably in bed without chest pain, shortness of breath, or palpitation. The patient denies dizziness. PHYSICAL EXAMINATION: VITAL SIGNS: Blood pressure 128/75, earlier blood pressure 145/84, respirations 20, pulse 82, temperature 98.1. HEENT: Head is normocephalic. Eyes: Pupils are normal. Conjunctivae slightly pale. NECK: JVP low. Carotids are equal. THORAX: AP diameter normal. LUNGS: Clear. CARDIOVASCULAR: S1 and S2. ABDOMEN: Soft. No tenderness. No organomegaly. EXTREMITIES: No clubbing. No cyanosis. LABORATORY DATA: WBC 7.1, hemoglobin 10.7, hematocrit 33.8, platelet 267. Sodium 143, potassium 3.5. Calcium, phosphorous, magnesium normal. AST 57, ALT 55. TSH 3.04. Triglyceride 454, cholesterol 322. DIAGNOSES: Syncope, rule out seizure, status post permanent pacemaker insertion, hypertension, obesity, hypokalemia, hypercholesterolemia, hypertriglyceridemia, anemia. The patient is on clonidine 0.2 b.i.d., Keppra 500 mg p.o. t.i.d. Lyrica 75 mg t.i.d., Paxil 20 mg daily, Protonix 40 daily. We will give K-Dur 20 mEq today and we will repeat SMA-7 in the morning. The patient states that she cannot take Lipitor for cholesterol. We will try Crestor. We will also add TriCor therapy for high triglyceride, and we will follow with you. Sam Licona MD
[2017-07-03] MEDS ORDERED: Amoxicillin-Clav 875-125 mg Tab PO SCH (22:00)
--- NOTE | 2017-07-04 00:10 | DS ---
HISTORY OF PRESENT ILLNESS: The patient was initially admitted to the hospital because of syncopal episode. She is currently comfortable. She had her pacemaker interrogated, no new issues. She is interested in getting rehab. The plan is to try to send her either to TCU or subacute rehab. The patient is complaining of congestion in her nose. She has a history of chronic sinusitis. She has a history of chronic allergies. She was also on multiple antibiotics in the past. She has been started on IV antibiotics by Infectious Disease. She has no complain of any headache. She does have weakness in the arms and legs. She says she has difficulty in ambulating. She feels fatigued and tired. She has pain in muscles, in her joints, in her shoulders and her legs, knees, and the hips. PHYSICAL EXAMINATION: VITAL SIGNS: Temperature is 98.1, pulse of 82, blood pressure 145/84, respirations 20, and O2 saturations 96%. GENERAL: The patient is lying in bed, flat, comfortable. HEENT: No oral lesion. Anicteric sclerae. Moist mucosa. NECK: No JVD, adenopathy, or thyromegaly. CARDIOVASCULAR: S1 and S2, regular. No murmurs, rubs, or gallops. LUNGS: Clear to auscultation bilaterally. No wheeze, rales, or rhonchi. ABDOMEN: Bowel sounds are positive, soft, nontender and nondistended. EXTREMITIES: No cyanosis, clubbing or edema. ASSESSMENT: 1. Syncope. 2. Bradycardia. 3. Spinal stenosis. 4. Fibromyalgia. 5. Chronic anemia. 6. Irritable bowel syndrome. 7. Depression. 8. Anxiety. 9. Migraine headaches. 10. Pacemaker. 11. Fever. PLAN: The patient is currently on hydralazine. She is on clonidine for her hypertension. She is on loratadine for her allergies. She is on Flexeril and Fioricet for her pain. She is on Keppra. Also she is on Paxil for her anxiety and depression. She is on heart-healthy diet. She is asking for nasal spray. She also had a history of basal cell and she is asking for evaluation possible biopsy. She is going to be discharged to rehab facility. CONDITION: Stable. ACTIVITIES: Increase as tolerated. Felice Zuleta MD [facility] # [id number]
== END 2017-07-03 20:55 | DRG 312 ==
LOC: ED 18:38 → ERH 21:17 → 3RSO 23:22 → OBSVTOIN 06-30 14:41 → 5RNO 07-01 23:24
PROVIDERS: ADMIT Internal Medicine Medical Oncology; ATTEND Internal Medicine Nephrology
PROC: 4B02XSZ Measurement of Cardiac Pacemaker, External Approach (ICD-10-PCS; principal; 2017-06-30)
DX: R55 Syncope and collapse (principal); R00.1 Bradycardia, unspecified; I10 Essential (primary) hypertension; M48.02 Spinal stenosis, cervical region; D64.9 Anemia, unspecified; E66.9 Obesity, unspecified; E11.9 Type 2 diabetes mellitus without complications; E78.2 Mixed hyperlipidemia; M79.7 Fibromyalgia; K58.9 Irritable bowel syndrome, unspecified; F32.9 Major depressive disorder, single episode, unspecified; F43.10 Post-traumatic stress disorder, unspecified; G43.909 Migraine, unspecified, not intractable, without status migrainosus; G40.909 Epilepsy, unspecified, not intractable, without status epilepticus; M54.16 Radiculopathy, lumbar region; E87.6 Hypokalemia; I25.10 Atherosclerotic heart disease of native coronary artery without angina pectoris; F51.02 Adjustment insomnia; Z68.35 Body mass index [BMI] 35.0-35.9, adult; Z85.820 Personal history of malignant melanoma of skin; Z86.73 Personal history of transient ischemic attack (TIA), and cerebral infarction without residual deficits; Z87.440 Personal history of urinary (tract) infections; Z95.0 Presence of cardiac pacemaker

== ENCOUNTER 2017-08-19 13:03 | Inpatient (IN) | payer MEDICARE, OTHER ==
[2017-08-19 13:19] VITALS: BMI 35.9
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
[2017-08-19 14:07] LABS: BASO # 0.03 K/mm3 (0.0-2.0); BASO % 0.5 % (0.0-3.0); EOS # 0.1 (0.0-0.7); GRAN % 29.8 % (50.0-68.0); HEMOGLOBIN 11.3 g/dL (12.0-16.0); LYMPH # 3.7 (1.2-3.4); LYMPH % 61.4 % (22.0-35.0); MEAN CELL VOLUME 60.2 fl (80.0-105.0); MEAN CORPUSCULAR HEMOGLOBIN 19.2 pg (25.0-35.0); MEAN CORPUSCULAR HGB CONC 31.8 g/dl (31.0-37.0); MONO # 0.4 (0.1-0.6); MONO % 6.3 % (1.0-6.0); PLATELET COUNT 330 10^3/uL (120.0-450.0); RED CELL DISTRIBUTION WIDTH 17.5 % (11.5-14.5)
[2017-08-19 14:18] LABS: ALB/GLOB RATIO 1.1 (1.1-1.8); ALBUMIN 4.5 g/dL (3.0-4.8); ALT/SGPT 46 U/L (7-56); AST/SGOT 59 U/L (14-36); BLOOD UREA NITROGEN 18 mg/dL (7-21); CALCIUM 10.2 mg/dL (8.4-10.5); GFR AFRICAN-AMERICAN > 60; GFR NON-AFRICAN AMERICAN > 60
[2017-08-19 14:19] LABS: INR 0.97 (0.93-1.08); PROTHROMBIN TIME 11.1 SECONDS (9.4-12.5)
[2017-08-19 14:30] LABS: TROPONIN I < 0.01 ng/mL
--- NOTE | 2017-08-19 14:45 | CT ---
PROCEDURE: CT HEAD WITHOUT CONTRAST. HISTORY: fell hit head and sinus pain prior to injury COMPARISON: Comparison is made with the previous study dated 12/04/2016 TECHNIQUE: Axial computed tomography images were obtained through the head/brain without intravenous contrast. Radiation dose: Total exam DLP = 898.7 mGy-cm. This CT exam was performed using one or more of the following dose reduction techniques: Automated exposure control, adjustment of the mA and/or kV according to patient size, and/or use of iterative reconstruction technique. FINDINGS: HEMORRHAGE: No intracranial hemorrhage. BRAIN: No mass effect or edema. No atrophy or chronic microvascular ischemic changes. VENTRICLES: Unremarkable. No hydrocephalus. CALVARIUM: Unremarkable. PARANASAL SINUSES: Unremarkable as visualized. No significant inflammatory changes. MASTOID AIR CELLS: Unremarkable as visualized. No inflammatory changes. OTHER FINDINGS: None. IMPRESSION: No evidence of acute intracranial hemorrhage intracranial collection mass effect or midline shift. No significant interval change since the previous exam noted.
[2017-08-19] MEDS ORDERED: Sodium Chloride 0.9% 2,000 ML IV STA (14:47)
[2017-08-19] MEDS ORDERED: Iohexol 350 MG/100 ML VIAL ONE (14:53)
--- NOTE | 2017-08-19 15:09 | CT ---
PROCEDURE: CT SINUSES WITHOUT CONTRAST HISTORY: fell hit head and sinus pain prior to injury COMPARISON: None TECHNIQUE: Contiguous axial CT images of the paranasal sinuses were obtained. Coronal and sagittal reformats were generated. Radiation dose: Total exam DLP = 515 mGy-cm. This CT exam was performed using one or more of the following dose reduction techniques: Automated exposure control, adjustment of the mA and/or kV according to patient size, and/or use of iterative reconstruction technique. FINDINGS: FRONTAL SINUSES: Clear. ETHMOID SINUSES: Clear. SPHENOID SINUSES: Clear. MAXILLARY SINUSES: Clear. SINUS DRAINAGE: Osteomeatal complexes, frontal recesses and sphenoethmoid recesses clear. NASAL SEPTUM: No significant deviation. No destructive lesion. MASS: None. SKULL BASE: Unremarkable. TEMPORAL BONES: Middle ears and mastoid grossly unremarkable. OTHER FINDINGS: None. IMPRESSION: Negative study
--- NOTE | 2017-08-19 15:11 | RAD ---
HISTORY: Not Feeling Well, Labile Blood Pressure COMPARISON: 07/02/2017 FINDINGS: LUNGS: No active pulmonary disease. PLEURA: No significant pleural effusion identified, no pneumothorax apparent. CARDIOVASCULAR: Normal. OSSEOUS STRUCTURES: No significant abnormalities. VISUALIZED UPPER ABDOMEN: Normal. OTHER FINDINGS: None. IMPRESSION: No active disease.
--- NOTE | 2017-08-19 15:51 | CT ---
PROCEDURE: CT Chest with contrast (Pulmonary Angiogram) HISTORY: Elevated D-Dimer COMPARISON: None available. TECHNIQUE: Axial computed tomography images were obtained of the chest in the pulmonary arterial phase of enhancement. Coronal and sagittal reformatted images were created and reviewed. Intravenous contrast dose: 100 cc of Omni 350 Radiation dose: Total exam DLP = 406 mGy-cm. This CT exam was performed using one or more of the following dose reduction techniques: Automated exposure control, adjustment of the mA and/or kV according to patient size, and/or use of iterative reconstruction technique. FINDINGS: PULMONARY ARTERIES: Unremarkable. No pulmonary embolism. AORTA: No acute findings. No thoracic aortic aneurysm. LUNGS: Unremarkable. No nodule, mass or pulmonary consolidation. PLEURAL SPACES: Unremarkable. No effusion or pneuomothorax. HEART: Unremarkable. No cardiomegaly. No significant pericardial effusion. LYMPH NODES: No lymphadenopathy. BONES, CHEST WALL: Unremarkable. No fracture or destructive lesion OTHER FINDINGS: Unremarkable. IMPRESSION: Unremarkable CT pulmonary angiogram. No pulmonary embolus.
[2017-08-19] MEDS ORDERED: levoFLOXacin 750 MG TAB PO STA (16:09)
[2017-08-19] MEDS: Oxycodone/Acetaminophen 10/325 mg Tab PO PRN (20:31)
--- NOTE | 2017-08-19 21:00 | CARD ---
APPROVED REPORT EKG Measurement Heart [id number] <Conclusion> Electronic atrial pacemaker Moderate voltage criteria for LVH, may be normal variant Borderline ECG
[2017-08-19] MEDS ORDERED: DiphenhydrAMINE 50 mg/ml Inj IVP STA (23:19)
[2017-08-20] MEDS: Apap-Butalbital-Caffeine 325-50-40mg Tab PO PRN ×3 (02:58→20:30)
--- NOTE | 2017-08-20 05:00 | CP.PCM.PN ---
Subjective - Date & Time of Evaluation Date of Evaluation: 08/20/17 Time of Evaluation: 00:00 - Subjective Subjective: S:Patient requested a sleeping pill. Has no other complaints. Medical record was reviewed. O:VSS. Sitting in bed. No acute distress. LUNGS:Normal breathing pattern. NEURO:Speech normal. A:Adjustment insomnia. P:Benadryl 25 mg IV x 1. Objective - Vital Signs/Intake and Output Vital Signs (last 24 hours): Temp Pulse Resp BP Pulse Ox 98.2 F 64 18 130/79 98 08/20/17 03:13 08/20/17 03:13 08/20/17 03:13 08/20/17 03:13 08/20/17 03:13 - Medications Medications: Current Medications Acetaminophen (Tylenol 325mg Tab) 650 mg PO Q4H PRN PRN Reason: Temp >100.4*F Acetaminophen/Butalbital/Caffeine (Fioricet) 1 tab PO Q8H PRN PRN Reason: Headache Last Admin: 08/20/17 02:58 Dose: 1 tab Clonazepam (Klonopin) 1 mg PO QID [facility] PRN Reason: Protocol Last Admin: 08/19/17 22:30 Dose: 1 mg Clonidine HCl (Catapres) 0.2 mg PO BID [facility] Cyclobenzaprine HCl (Flexeril) 10 mg PO BID PRN PRN Reason: Pain, moderate (4-7) Fenofibrate (Tricor) 145 mg PO DAILY [facility] Hydralazine HCl (Apresoline) 10 mg PO QID PRN PRN Reason: for sbp>160 Last Admin: 08/20/17 00:19 Dose: 10 mg Levetiracetam (Keppra) 500 mg PO TID [facility] Loratadine (Claritin) 10 mg PO DAILY [facility] Ondansetron HCl (Zofran Odt) 1 mg PO Q8H PRN PRN Reason: Nausea/Vomiting Oxycodone/Acetaminophen (Percocet 10/325 Mg Tab) 1 tab PO QID PRN PRN Reason: Pain, severe (8-10) Last Admin: 08/19/17 20:31 Dose: 1 tab Pantoprazole Sodium (Protonix Ec Tab) 40 mg PO ACB [facility] Paroxetine HCl (Paxil) 20 mg PO DAILY [facility] Pregabalin (Lyrica) 75 mg PO TID [facility] - Labs Labs: PT 11.1 SECONDS (9.4-12.5) 08/19/17 14:02 INR 0.97 (0.93-1.08) 08/19/17 14:02
[2017-08-20] MEDS: Pantoprazole 40 mg EC Tab PO SCH (09:18)
[2017-08-20] MEDS: Oxycodone/Acetaminophen 10/325 mg Tab PO PRN ×3 (09:43→23:51)
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
--- NOTE | 2017-08-20 18:54 | HP ---
CHIEF COMPLAINT AND HISTORY OF PRESENT ILLNESS: This is a 47-year-old female who is coming into the hospital complaining of weakness. She states she was having dizziness at home. She states that she was under the care of [place] visiting nurses. She has been having blood pressure issues at home. She states she fell down the stairs yesterday and hit the right side of her head. The patient was complaining of low blood pressure that happened at home as well. She does have a history of bradycardia and has had pacemaker. She was seen Dr. Faye and has also seen a financial compliance examiner in [place]. The patient states now she has changed to Dr. Harris. The patient has been seeing Dr. Dye for her blood pressure issues as well. She takes clonidine p.r.n. for her blood pressure. She does complain of congestion, says that she has used antibiotics in the past. From my previous experiences with her, she has had multiple rounds of antibiotics and I have advised her to limit her antibiotics. The patient states she has difficult time in walking. She is dizzy. She is in the ER and was having difficulty in walking when she was coming back from the bathroom and had a fall. The patient has no dysuria or frequency. She has fatigue. She has fibromyalgia with pain in the shoulders and legs. REVIEW OF SYSTEMS: All other review of symptoms are within normal limits except as mentioned. ALLERGIES: ATORVASTATIN, GABAPENTIN, METOCLOPRAMIDE, TRIMETHOBENZAMIDE. HOME MEDICATIONS: Keppra, Lyrica, magnesium, and Flexeril. PAST MEDICAL HISTORY: 1. Fibromyalgia. 2. Spinal stenosis. 3. Frequent UTIs. 4. Chronic sinusitis. 5. Irritable bowel syndrome. 6. Endometriosis. 7. Depression. 8. Anxiety. 9. Plantar fascitis. PAST SURGICAL HSTORY: 1. Pacemaker placement. 2. Appendectomy. 3. Cardiac cath in 06/2016. 4. Neck surgery. 5. Back surgery. 6. Foot surgery. 7. Right oophorectomy. 8. Cervical fusions in C3, C4, C5, C6, C7. 9. Left knee surgery. SOCIAL HISTORY: She denies smoking or drinking. FAMILY HISTORY: Noncontributory. PHYSICAL EXAMINATION: VITAL SIGNS: She has a temperature of 97.6, pulse of 60, blood pressure 113/66, respirations 20, and O2 saturations 98%. Height is 5 feet 4 inches, weight is 209 pounds. GENERAL: The patient lying in bed, uncomfortable, and in no acute distress. HEENT: Atraumatic and normocephalic. Anicteric sclerae. Moist mucosa. [place] conjunctivae. No oral lesions. NECK: No JVD, anterior and posterior adenopathy, thyromegaly, or bruits. CARDIOVASCULAR: S1 and S2 regular. No murmur, rubs, or gallop. LUNGS: Clear to auscultation bilaterally. No wheezes, rales, or rhonchi. ABDOMEN: Bowel sounds are positive. Soft, nontender and nondistended. No hepatosplenomegaly. No rebound and no guarding EXTREMITIES: No cyanosis, clubbing, or edema. NEUROLOGIC: No facial asymmetry. Tongue is midline. No uvula deviation. Power is 5/5 upper extremity and lower extremity. Sensation intact in upper extremity and lower extremity. PSYCHIATRIC: She is awake, alert and oriented x3. No anxiety or depression. She has normal affect. GENITOURINARY: No CVA tenderness. Sinus CT done shows no signs of sinusitis. CT of the chest done shows she has no PE. The patient has chest x-ray shows no active disease. CT of the head shows no intracranial hemorrhage or mass effect. EKG done shows heart rate of 60 with paced rhythm. QTc is 424. LABORATORY DATA: White count of 6.0, hemoglobin is 11.3. INR is 0.97 with a D-dimer of 302. She has chemistry that shows creatinine of 0.9. Calcium was 10.2 with alkaline phosphatase of 81. ASSESSMENT: 1. Fall. 2. Dizziness. 3. Pacemaker. 4. Fibromyalgia. 5. Spinal stenosis. 6. Irritable bowel syndrome. 7. Depression. 8. Anxiety. 9. Migraine headaches. 10. Cervical fusion history. PLAN: The patient is admitted to the hospital. She is going to be seen by Cardiology with Dr. Harris. The patient does not have any signs of sinusitis. I will not give her any antibiotics. She has had significant amount of antibiotics in the past. I warned her about the excess radiation that she is getting when she gets x-rays and CAT scans. She does understand the risks. She is also going to be on Tylenol p.r.n. for pain. She is on Paxil for anxiety and depression. She is on Lyrica. She is going to continue with her Klonopin for anxiety. The patient gets Fioricet for migraine headaches. She is on clonidine for her blood pressure. Blood pressure is better controlled this morning. Her heart rate is also controlled. She had her pacemaker interrogated yesterday by [employer] and it shows no abnormalities. The patient has a heart-healthy diet. The patient is going to get physical therapy. We will see if she requires subacute rehab. She was recently discharged from subacute rehab about a month ago from [facility]. I will wait for the inputs from Cardiology. We will get the patient out of bed to chair. Felice Zuleta MD
[2017-08-21] MEDS ORDERED: DiphenhydrAMINE 50 mg/ml Inj IVP STA (00:08)
--- NOTE | 2017-08-21 00:12 | CP.PCM.PN ---
Subjective - Date & Time of Evaluation Date of Evaluation: 08/21/17 Time of Evaluation: 00:09 - Subjective Subjective: S:Requests a sleeping pill. Seen at bedside. Has no other complaints. Pertinent medical record was reviewed. O: Last Vital Signs 3 Temp 99.3 F 08/20/17 16:00 Pulse 74 08/20/17 18:00 Resp 20 08/20/17 16:00 BP 195/95 H 08/20/17 18:16 Pulse Ox 98 08/20/17 16:00 Awake, alert, not in distress. LUNGS:Normal breathing pattern. NEURO:Speech normal. A: Adjustment insomnia. P:Benadryl 25 mg IV x 1. Objective - Vital Signs/Intake and Output Vital Signs (last 24 hours): Temp Pulse Resp BP Pulse Ox 99.3 F 74 20 195/95 H 98 08/20/17 16:00 08/20/17 18:00 08/20/17 16:00 08/20/17 18:16 08/20/17 16:00 Intake and Output: 08/20/17 08/21/17 18:59 06:59 Intake Total 975 Balance 975 - Medications Medications: Current Medications Acetaminophen (Tylenol 325mg Tab) 650 mg PO Q4H PRN PRN Reason: Temp >100.4*F Acetaminophen/Butalbital/Caffeine (Fioricet) 1 tab PO Q8H PRN PRN Reason: Headache Last Admin: 08/20/17 20:30 Dose: 1 tab Clonazepam (Klonopin) 1 mg PO QID [facility] PRN Reason: Protocol Last Admin: 08/20/17 22:01 Dose: 1 mg Clonidine HCl (Catapres) 0.2 mg PO BID [facility] Last Admin: 08/20/17 17:53 Dose: 0.2 mg Cyclobenzaprine HCl (Flexeril) 10 mg PO BID PRN PRN Reason: Pain, moderate (4-7) Last Admin: 08/20/17 22:04 Dose: 10 mg Fenofibrate (Tricor) 145 mg PO DAILY [facility] Last Admin: 08/20/17 09:21 Dose: 145 mg Hydralazine HCl (Apresoline) 10 mg PO QID PRN PRN Reason: for sbp>160 Last Admin: 08/20/17 18:16 Dose: 10 mg Levetiracetam (Keppra) 500 mg PO TID [facility] Last Admin: 08/20/17 18:38 Dose: 500 mg Loratadine (Claritin) 10 mg PO DAILY [facility] Last Admin: 08/20/17 09:22 Dose: 10 mg Ondansetron HCl (Zofran Odt) 1 mg PO Q8H PRN PRN Reason: Nausea/Vomiting Oxycodone/Acetaminophen (Percocet 10/325 Mg Tab) 1 tab PO QID PRN PRN Reason: Pain, severe (8-10) Last Admin: 08/20/17 23:51 Dose: 1 tab Pantoprazole Sodium (Protonix Ec Tab) 40 mg PO ACB [facility] Last Admin: 08/20/17 09:18 Dose: 40 mg Paroxetine HCl (Paxil) 20 mg PO DAILY [facility] Last Admin: 08/20/17 09:21 Dose: 20 mg Pregabalin (Lyrica) 75 mg PO TID [facility] Last Admin: 08/20/17 18:38 Dose: 75 mg - Labs Labs: PT 11.1 SECONDS (9.4-12.5) 08/19/17 14:02 INR 0.97 (0.93-1.08) 08/19/17 14:02
[2017-08-21] MEDS: Oxycodone/Acetaminophen 10/325 mg Tab PO PRN ×3 (05:30→20:31)
[2017-08-21 06:26] LABS: HEMOGLOBIN 10.2 g/dL (12.0-16.0); MEAN CELL VOLUME 60.2 fl (80.0-105.0); MEAN CORPUSCULAR HEMOGLOBIN 18.8 pg (25.0-35.0); MEAN CORPUSCULAR HGB CONC 31.2 g/dl (31.0-37.0); PLATELET COUNT 289 10^3/uL (120.0-450.0); RBC 5.43 10^6/uL (3.5-6.1); RED CELL DISTRIBUTION WIDTH 17.6 % (11.5-14.5); WHITE BLOOD COUNT 6.6 10^3/ul (4.5-11.0)
[2017-08-21 06:44] LABS: ALB/GLOB RATIO 1.1 (1.1-1.8); ALT/SGPT 40 U/L (7-56); AST/SGOT 45 U/L (14-36); BLOOD UREA NITROGEN 20 mg/dL (7-21); CALCIUM 9.9 mg/dL (8.4-10.5); GFR AFRICAN-AMERICAN > 60; GFR NON-AFRICAN AMERICAN 53
--- NOTE | 2017-08-21 07:47 | CP.PCM.PN ---
Subjective - Date & Time of Evaluation Date of Evaluation: 08/21/17 Time of Evaluation: 07:00 - Subjective Subjective: Stable on 3R. No Cp or SOB. Pacer interrogation done yesterday by [employer] rep [place]: Normal pacer fx. The rate drop feature was removed. I spoke with Dr. Zuleta today. V/S noted. BP elevated at times. No orthostatic changes when checked yesterday. PE: Lungs: clear Cor.: S1S2 Abd.: soft Ext.: no edema Neuro.: alert Labs 08/21 noted Objective - Vital Signs/Intake and Output Vital Signs (last 24 hours): Temp Pulse Resp BP Pulse Ox 97.9 F 50 L 20 125/60 97 08/21/17 00:01 08/21/17 06:00 08/21/17 00:01 08/21/17 00:01 08/21/17 00:01 Intake and Output: 08/21/17 08/21/17 06:59 18:59 Intake Total 240 Output Total 2 Balance 238 - Medications Medications: Current Medications Acetaminophen (Tylenol 325mg Tab) 650 mg PO Q4H PRN PRN Reason: Temp >100.4*F Acetaminophen/Butalbital/Caffeine (Fioricet) 1 tab PO Q8H PRN PRN Reason: Headache Last Admin: 08/20/17 20:30 Dose: 1 tab Clonazepam (Klonopin) 1 mg PO QID [facility] PRN Reason: Protocol Last Admin: 08/20/17 22:01 Dose: 1 mg Clonidine HCl (Catapres) 0.2 mg PO BID [facility] Last Admin: 08/20/17 17:53 Dose: 0.2 mg Cyclobenzaprine HCl (Flexeril) 10 mg PO BID PRN PRN Reason: Pain, moderate (4-7) Last Admin: 08/20/17 22:04 Dose: 10 mg Fenofibrate (Tricor) 145 mg PO DAILY [facility] Last Admin: 08/20/17 09:21 Dose: 145 mg Hydralazine HCl (Apresoline) 10 mg PO QID PRN PRN Reason: for sbp>160 Last Admin: 08/20/17 18:16 Dose: 10 mg Levetiracetam (Keppra) 500 mg PO TID [facility] Last Admin: 02/22/18 18:38 Dose: 500 mg Loratadine (Claritin) 10 mg PO DAILY [facility] Last Admin: 08/20/17 09:22 Dose: 10 mg Ondansetron HCl (Zofran Odt) 1 mg PO Q8H PRN PRN Reason: Nausea/Vomiting Oxycodone/Acetaminophen (Percocet 10/325 Mg Tab) 1 tab PO QID PRN PRN Reason: Pain, severe (8-10) Last Admin: 08/21/17 05:30 Dose: 1 tab Pantoprazole Sodium (Protonix Ec Tab) 40 mg PO ACB [facility] Last Admin: 08/20/17 09:18 Dose: 40 mg Paroxetine HCl (Paxil) 20 mg PO DAILY [facility] Last Admin: 08/20/17 09:21 Dose: 20 mg Pregabalin (Lyrica) 75 mg PO TID [facility] Last Admin: 08/20/17 18:38 Dose: 75 mg - Labs Labs: 08/21/17 05:30 08/21/17 05:30 PT 11.1 SECONDS (9.4-12.5) 08/19/17 14:02 INR 0.97 (0.93-1.08) 08/19/17 14:02 Assessment and Plan - Assessment and Plan (Free Text) Assessment: Dizzy/Weak Spells Variable BPs PPM for [place] HBP Melanoma/Cheek Seizure Disorder by history Chronic Back Pain Endometriosis UTIs Plan: Pacer F/U OOB as tl/PT Titrate BP meds as per Dr. Zuleta/Dr. Dye
[2017-08-21] MEDS: Pantoprazole 40 mg EC Tab PO SCH (09:20)
--- NOTE | 2017-08-21 10:00 | PN ---
DATE: SUBJECTIVE: The patient said she feels weak. She said she has dizziness and difficulty with ambulation. PHYSICAL EXAMINATION: VITAL SIGNS: Temperature is 97.9, pulse of 68, blood pressure 125/60, respirations 20. GENERAL: The patient is lying in bed, flat, comfortable. HEENT: No oral lesion. Anicteric sclerae. Moist mucosa. NECK: No JVD, adenopathy, or thyromegaly. CARDIOVASCULAR: S1 and S2, regular. No murmurs, rubs, or gallops. LUNGS: Clear to auscultation bilaterally. No wheeze, rales, or rhonchi. ABDOMEN: Bowel sounds are positive, soft, nontender and nondistended. EXTREMITIES: No cyanosis, clubbing or edema. LABS: White count is 6.0, hemoglobin 11.3, creatinine 0.9. ASSESSMENT: 1. Fall. 2. Dizziness. 3. Gait dysfunction. 4. Pacemaker. 5. Fibromyalgia. 6. Spinal stenosis. 7. Irritable bowel syndrome. 8. Depression. 9. Anxiety. 10. Migraine headache. 11. History of cervical fusion. PLAN: The patient had requested for sleeping pill yesterday. She is being followed by Dr. Harris from Cardiology. The patient's blood pressure is controlled this morning at 125/60. She is going to be on Claritin for allergies. She is on Flexeril for her back issues. She is on Klonopin for her anxiety, she gets 1 mg 4 times a day. She is on Lyrica for her fibromyalgia. She is on Paxil for anxiety and depression. She is going to continue TriCor. The patient is on heart-healthy diet. She is seen by Physical Therapy. She will most likely need subacute rehab. She has been at [facility] previously. Felice Zuleta MD
[2017-08-21] MEDS: Apap-Butalbital-Caffeine 325-50-40mg Tab PO PRN (17:35)
[2017-08-21 20:57] VITALS: O2SAT 96
[2017-08-21] MEDS ORDERED: DiphenhydrAMINE 50 mg/ml Inj IVP ONE (22:30)
[2017-08-22 00:21] VITALS: RESP 20
[2017-08-22] MEDS: Apap-Butalbital-Caffeine 325-50-40mg Tab PO PRN ×2 (01:04→09:00)
[2017-08-22] MEDS: Oxycodone/Acetaminophen 10/325 mg Tab PO PRN (05:49)
--- NOTE | 2017-08-22 06:17 | CP.PCM.PN ---
Subjective - Date & Time of Evaluation Date of Evaluation: 08/22/17 Time of Evaluation: 06:15 - Subjective Subjective: S:Sleeping medication was requested. Pertinent medical record was reviewed. Benadryl 25 mg IV was ordered. Went to see patient who is asleep. O: Last Vital Signs 3 Temp 97.7 F 08/22/17 00:01 Pulse 50 L 08/22/17 04:36 Resp 20 08/22/17 00:01 BP 158/78 H 08/22/17 02:19 Pulse Ox 96 08/22/17 00:01 Stable, asleep. LUNGS:Normal breathing pattern. A:Adjustment insomnia. P:Benadryl 25 mg IV was given. Objective - Vital Signs/Intake and Output Vital Signs (last 24 hours): Temp Pulse Resp BP Pulse Ox 97.7 F 50 L 20 158/78 H 96 08/22/17 00:01 08/22/17 04:36 08/22/17 00:01 08/22/17 02:19 08/22/17 00:01 Intake and Output: 08/21/17 08/22/17 18:59 06:59 Intake Total 240 Output Total 2 Balance 238 - Medications Medications: Current Medications Acetaminophen (Tylenol 325mg Tab) 650 mg PO Q4H PRN PRN Reason: Temp >100.4*F Acetaminophen/Butalbital/Caffeine (Fioricet) 1 tab PO Q8H PRN PRN Reason: Headache Last Admin: 08/22/17 01:04 Dose: 1 tab Clonazepam (Klonopin) 1 mg PO QID [facility] PRN Reason: Protocol Last Admin: 08/21/17 22:35 Dose: 1 mg Clonidine HCl (Catapres) 0.2 mg PO BID [facility] Last Admin: 08/21/17 17:34 Dose: 0.2 mg Cyclobenzaprine HCl (Flexeril) 10 mg PO BID PRN PRN Reason: Pain, moderate (4-7) Last Admin: 08/20/17 22:04 Dose: 10 mg Fenofibrate (Tricor) 145 mg PO DAILY [facility] Last Admin: 08/21/17 09:19 Dose: 145 mg Hydralazine HCl (Apresoline) 10 mg PO QID PRN PRN Reason: for sbp>160 Last Admin: 08/22/17 01:07 Dose: 10 mg Levetiracetam (Keppra) 500 mg PO TID [facility] Last Admin: 08/21/17 17:34 Dose: 500 mg Loratadine (Claritin) 10 mg PO DAILY [facility] Last Admin: 08/21/17 09:22 Dose: Not Given Ondansetron HCl (Zofran Odt) 1 mg PO Q8H PRN PRN Reason: Nausea/Vomiting Oxycodone/Acetaminophen (Percocet 10/325 Mg Tab) 1 tab PO QID PRN PRN Reason: Pain, severe (8-10) Last Admin: 08/22/17 05:49 Dose: 1 tab Pantoprazole Sodium (Protonix Ec Tab) 40 mg PO ACB [facility] Last Admin: 08/21/17 09:20 Dose: 40 mg Paroxetine HCl (Paxil) 20 mg PO DAILY [facility] Last Admin: 08/21/17 09:20 Dose: 20 mg Pregabalin (Lyrica) 75 mg PO TID [facility] Last Admin: 08/21/17 17:34 Dose: 75 mg - Labs Labs: 08/21/17 05:30 08/21/17 05:30 PT 11.1 SECONDS (9.4-12.5) 08/19/17 14:02 INR 0.97 (0.93-1.08) 08/19/17 14:02
[2017-08-22 08:03] VITALS: TEMP 97.4
[2017-08-22] MEDS: Pantoprazole 40 mg EC Tab PO SCH (09:02)
[2017-08-22 09:04] VITALS: BP 114/67; PULSE 49
--- NOTE | 2017-08-22 11:10 | PN ---
DATE: 08/22/2017 SUBJECTIVE: The patient is seen sitting in bed on telemetry. She is currently comfortable. She denies any recent lightheadedness. She is tentatively scheduled for transfer to a rehabilitation facility today. CURRENT MEDICATIONS: Include hydralazine p.r.n., Claritin, Fioricet, Flexeril, Keppra, Klonopin, Lyrica, Paxil, Percocet, Protonix, TriCor, Zocor and Zofran p.r.n. PHYSICAL EXAMINATION GENERAL: She is a middle-aged woman who appears comfortable at the present time. VITAL SIGNS: Her blood pressure is 114/60 with a pulse of 50 with dual chamber pacing, respirations are 14. She is afebrile. HEENT: No JVD. CHEST: Few scattered rhonchi. HEART: No pathological murmurs, rubs or gallops heard. ABDOMEN: Soft, nontender with normoactive bowel sounds. EXTREMITIES: No edema. DIAGNOSTIC DATA: No blood work pending from this morning. IMPRESSION AND RECOMMENDATION: 1. Labile blood pressure, stable at present. 2. Conduction system disease, status post permanent pacemaker implant with recent interrogation revealing no evidence of dysfunction and appropriate adjustments made at the pacing settings. 3. Chronic pain syndrome. Recommendations from cardiac standpoint, she is stable at this time for transfer to rehabilitation center. Outpatient followup will be arranged as needed. Rivera Guzman MD
--- NOTE | 2017-08-24 00:18 | DS ---
DISCHARGE DIAGNOSES: 1. Deconditioning. 2. Fibromyalgia. 3. Anemia, microcytic. 4. Depression. 6. Anxiety. 7. History of cervical fusion 8. Gait dysfunction. HOSPITAL COURSE: She was admitted with extreme weakness, syncope and gait dysfunction. She has multiple medical problems listed above. She was evaluated by Cardiology. She felt weak during hospitalization. She is being transferred to [facility] for subacute rehab. PHYSICAL EXAMINATION ON DISCHARGE: GENERAL: Comfortable in bed, in no acute distress. VITAL SIGNS: Temperature 97.8, heart rate 68 per minute, blood pressure 125/60, respiratory rate 18 per minute. HEENT: Normal. Mucosa pale. NECK: No lymphadenopathy. CHEST: Fair air entry present and equal bilaterally. No added sounds. CARDIOVASCULAR: S1 and S2 normal. No murmur. No gallop. ABDOMEN: Soft, nontender. No hepatosplenomegaly. EXTREMITIES: No edema. CENTRAL NERVOUS SYSTEM: Alert and oriented x3. No focal sensory motor deficit. CONDITION ON DISCHARGE: Stable. DISPOSITION: Discharged to subacute rehab. DISCHARGE MEDICATION: Discharge medication list given to the transport. DIET: Normal. FOLLOWUP: With Dr. Black upon discharge from the rehab. Time spent in preparing discharge and coordinating care, 60 minutes. Madiha Corona MD
== END 2017-08-22 11:46 | DRG 149 ==
LOC: ED 13:03 → ERH 16:27 → 3RNO 18:45
PROVIDERS: ADMIT Internal Medicine Nephrology; ATTEND Internal Medicine Nephrology
DX: R42 Dizziness and giddiness (principal); C43.39 Malignant melanoma of other parts of face; D50.9 Iron deficiency anemia, unspecified; E87.6 Hypokalemia; M79.7 Fibromyalgia; F32.9 Major depressive disorder, single episode, unspecified; I10 Essential (primary) hypertension; G40.909 Epilepsy, unspecified, not intractable, without status epilepticus; M54.16 Radiculopathy, lumbar region; M54.12 Radiculopathy, cervical region; G89.4 Chronic pain syndrome; F51.02 Adjustment insomnia; G43.909 Migraine, unspecified, not intractable, without status migrainosus; K58.9 Irritable bowel syndrome, unspecified; Z91.81 History of falling; Z95.0 Presence of cardiac pacemaker; Z98.1 Arthrodesis status; Z90.721 Acquired absence of ovaries, unilateral

== ENCOUNTER 2018-01-17 17:00 | Inpatient (IN) | payer MEDICARE, OTHER ==
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
[2018-01-17] MEDS ORDERED: Sodium Chloride 0.9% 1,000 ML IV SCH (17:15)
--- NOTE | 2018-01-17 17:53 | CT ---
PROCEDURE: CTA HEAD AND NECK WITH CONTRAST HISTORY: CVA COMPARISON: None available. TECHNIQUE: Initial noncontrast head CT was performed. Subsequently, CT angiogram of the head and neck were performed after the intravenous administration of 80 mL of Omnipaque 350. Contiguous 1.5mm thick images were obtained in the axial plane of the neck. 2-D coronal and sagittal MPR images were obtained. Imaging postprocessing was performed with 3-D images also obtained. A delayed contrast head CT was also obtained. This CT exam was performed using one or more of the following dose reduction techniques: Automated exposure control, adjustment of the mA and/or kV according to patient size, and/or use of iterative reconstruction technique. Contrast dose: 140 mL Omnipaque 350 Radiation dose: Total exam DLP = 488.18 mGy-cm. FINDINGS: HEAD: Right: The intracranial internal carotid artery, and anterior and middle cerebral arteries are widely patent. There is mild segmental narrowing in the distal M1 segment likely related to intracranial atherosclerosis. There is no hemodynamically significant stenosis in the internal carotid. Left: The intracranial internal carotid artery, and anterior and middle cerebral arteries are widely patent. There is no hemodynamically significant stenosis in the internal carotid artery. Posterior circulation: The visualized intracranial vertebral arteries, basilar artery and posterior cerebral arteries are widely patent. There is no endoluminal filling defect to suggest thrombus. There is no intracranial saccular aneurysm. NECK: There is a three vessel aortic arch. There is no stenosis at the origins of the great vessels at the level of the aortic arch. Right Carotid: On the right, the common carotid, internal carotid and external carotid arteries are widely patent. There is no hemodynamically significant stenosis in the internal carotid artery by NASCET criteria. Left Carotid: On the left, the common carotid, internal carotid and external carotid arteries are widely patent. There is no hemodynamically significant stenosis in the internal carotid artery by NASCET criteria. The vertebral arteries are widely patent. The visualized soft tissues of the neck are normal. Status post ACDF at C4-5 and C5-6. The lung apices are clear. IMPRESSION: 1. No evidence of endoluminal thrombus or occlusion. 2. Mild segmental narrowing in the right distal M1 segment likely related to intracranial atherosclerosis/thrombosis. 3. No evidence of hemodynamically significant stenosis in the internal carotid arteries. 4. Patent bilateral vertebral arteries.
--- NOTE | 2018-01-17 17:54 | CT ---
Date of service: 01/17/2018 PROCEDURE: CT HEAD WITHOUT CONTRAST. HISTORY: Code Stroke COMPARISON: 08/19/2017. TECHNIQUE: Axial computed tomography images were obtained through the head/brain without intravenous contrast. Radiation dose: Total exam DLP = 898.70 mGy-cm. This CT exam was performed using one or more of the following dose reduction techniques: Automated exposure control, adjustment of the mA and/or kV according to patient size, and/or use of iterative reconstruction technique. FINDINGS: HEMORRHAGE: No intracranial hemorrhage. BRAIN: Bush-white matter differentiation is preserved. There is no mass, mass effect or abnormal extra-axial fluid collection. There is no territorial infarction. There are subtle calcifications in the right basal ganglia. VENTRICLES: The ventricles are normal in size, shape and configuration. CALVARIUM: The skull base and calvarium are normal. PARANASAL SINUSES: Predominantly clear. MASTOID AIR CELLS: Predominantly clear. OTHER FINDINGS: None. IMPRESSION: No acute intracranial abnormality. If there is a persistent focal neurologic deficit and an ongoing clinical concern for acute infarction, an MRI of the brain without intravenous contrast would be a more sensitive modality for evaluation of hyperacute/acute ischemic infarction. Important findings were discussed with Dr. Yonathan Doe in the ER on 01/17/2018 at 5:45 p.m..
--- NOTE | 2018-01-17 17:55 | RAD ---
Date of service: 01/17/2018 HISTORY: Code Stroke COMPARISON: 08/19/2017 FINDINGS: LUNGS: The lungs are clear. PLEURA: Question of small left pleural effusion, no pneumothorax apparent. CARDIOVASCULAR: Persistent mild cardiomegaly. There is stable position of left-sided pacemaker. OSSEOUS STRUCTURES: No significant abnormalities. VISUALIZED UPPER ABDOMEN: Normal. OTHER FINDINGS: None. IMPRESSION: No active pulmonary disease. Question of small left pleural effusion.
[2018-01-17 18:02] LABS: BASO # 0.02 K/mm3 (0.0-2.0); BASO % 0.3 % (0.0-3.0); EOS # 0.1 (0.0-0.7); EOS % 2.1 % (1.5-5.0); GRAN # 2.31 (1.4-6.5); GRAN % 34.6 % (50.0-68.0); LYMPH # 3.6 (1.2-3.4); LYMPH % 53.7 % (22.0-35.0); MEAN CELL VOLUME 57.3 fl (80.0-105.0); MEAN CORPUSCULAR HEMOGLOBIN 19.1 pg (25.0-35.0); MEAN CORPUSCULAR HGB CONC 33.3 g/dl (31.0-37.0); MEAN PLATELET VOLUME 9.2 fl (7.0-11.0); MONO # 0.6 (0.1-0.6); MONO % 9.3 % (1.0-6.0); RBC 5.24 10^6/uL (3.5-6.1); RED CELL DISTRIBUTION WIDTH 18.3 % (11.5-14.5); WHITE BLOOD COUNT 6.7 10^3/ul (4.5-11.0)
[2018-01-17 18:04] LABS: ALB/GLOB RATIO 1.2 (1.1-1.8); ALBUMIN 3.6 g/dL (3.0-4.8); ALT/SGPT 37 U/L (7-56); AST/SGOT 25 U/L (14-36); BLOOD UREA NITROGEN 12 mg/dL (7-21); CALCIUM 8.4 mg/dL (8.4-10.5); GFR AFRICAN-AMERICAN > 60; GFR NON-AFRICAN AMERICAN > 60; HDL CHOLESTEROL 38 mg/dL (29-60); INR 1.01 (0.93-1.08); PARTIAL THROMBOPLASTIN TIME 27.4 Seconds (25.1-36.5); PROTHROMBIN TIME 11.5 SECONDS (9.4-12.5)
[2018-01-17] MEDS ORDERED: Oxycodone/Acetaminophen 5/325 mg Tab PO STA (18:13)
[2018-01-17 18:15] LABS: LDL CHOLESTEROL 103 mg/dL (0-129); TROPONIN I 0.02 ng/mL
[2018-01-17 18:22] LABS: B-TYPE NATRIURETIC PEPTIDE 704 pg/mL (0-450)
[2018-01-17] MEDS ORDERED: Pneumococcal 23-Valent Vaccine IM ONE (21:42)
[2018-01-17 21:43] VITALS: BMI 37.4
[2018-01-18] MEDS ORDERED: Oxycodone/Acetaminophen 10/325 mg Tab PO STA (04:30)
[2018-01-18 08:12] LABS: IRON 107 ug/dL (45-180)
[2018-01-18 08:21] LABS: % IRON SATURATION 28 % (20-55); TOTAL IRON BINDING CAPACITY 380 ug/dL (265-497)
[2018-01-18 08:24] LABS: TROPONIN I 0.03 ng/mL
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
--- NOTE | 2018-01-18 09:22 | CARD ---
APPROVED REPORT Date of service: 01/17/2018 EKG Measurement Heart [id number] <Conclusion> Sinus bradycardia Minimal voltage criteria for LVH, may be normal variant Cannot rule out Anterior infarct, age undetermined Abnormal ECG
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
[2018-01-18] MEDS: Apap-Butalbital-Caffeine 325-50-40mg Tab PO SCH ×2 (13:13→22:54)
[2018-01-18] MEDS: Nystatin 100,000 Units/ml Oral Susp 5 ml UD PO SCH ×3 (14:36→22:54)
--- NOTE | 2018-01-18 14:37 | CON ---
DATE: 01/18/2018 INDICATIONS: This is a 47-year-old woman admitted with complaints of variable blood pressure, sometimes high and sometimes low at home. She had recent extensive dental surgery with extraction of 26 teeth. She has had dental pain as well as chronic pain as well. On arrival to the emergency room, she underwent a code stroke protocol which was apparently unremarkable. She also complained of chest pain. She was admitted to telemetry. Her blood pressure was elevated, currently under better control. There is no chest pain this morning. She is not short of breath. She does not have focal neurologic symptoms. She is in sinus rhythm with intermittent A. pacing. PAST MEDICAL HISTORY: Complex. She has a history of both hypertension and hypotension. She has mild coronary artery disease documented on cardiac catheterization in 06/2016. She had a permanent pacemaker implanted for bradycardia. She has a history of hypothyroidism, seizure disorder, anemia, chronic pain, cervical and lumbar radiculopathy, migraine headaches, endometriosis, urinary tract infections. In 01/2017, she underwent a nuclear stress test here, which was unremarkable. She has had fairly recent pacemaker checks. There is no history of rheumatic fever, myocardial infarction, congestive heart failure, diabetes, or gout. MEDICATIONS AT THE TIME OF ADMISSION: Include hydralazine, clonidine, Fioricet, Flexeril, Klonopin, Levaquin, Keppra, Lyrica, Paxil, Percocet, Prilosec, ProAmatine as needed, Protonix, TriCor, and Zanaflex. ALLERGIES: SHE NOTES ALLERGIES TO MULTIPLE MEDICATIONS INCLUDING ATORVASTATIN, GABAPENTIN, METOCLOPRAMIDE, AND TRIMETHOBENZAMIDE. SOCIAL HISTORY: She lives at home. She does not smoke. She does not drink alcohol significantly. FAMILY HISTORY: Noncontributory. REVIEW OF SYSTEMS: A 10-point review of systems is otherwise unremarkable except as noted above. PHYSICAL EXAMINATION: GENERAL: She is a well-developed woman, in no acute distress, resting in bed on telemetry. VITAL SIGNS: Notable for a pulse of 52 to 110, blood pressures are variable most recently 210/100. HEENT: Reveal no neck vein distention, thyromegaly, or carotid bruits. Mucous membranes moist. Conjunctivae pink. Multiple dental extractions noted. LUNGS: Lung robles clear. HEART: Reveals normal first and second heart sounds. ABDOMEN: Soft. Bowel sounds present. No mass, organomegaly, tenderness, rebound, or guarding. No CVA tenderness. No palpable abdominal aortic aneurysm. EXTREMITIES: Reveal no cyanosis, clubbing, or edema. NEUROLOGIC: She is awake, alert, and anxious. PSYCHIATRIC: Normal as to mood and affect. Appears anxious. SKIN: Warm and dry. No rash or cellulitis. LABORATORY AND IMAGING: An EKG is not available for my review yet, but apparently it was unimpressive in the emergency room. Chest x-ray reveals no active disease, question of a small left pleural effusion, it is a portable study. There is a pacemaker in place. CT of the head revealed no acute intracranial abnormality, etc. Head and neck CTA is noted, see full report for details. No evidence of endoluminal thrombus or occlusion. White count normal, hemoglobin 10, hematocrit 30, and platelet count 276,000. PT, INR, and PTT unremarkable. Chemistries: BUN, creatinine, blood sugar, calcium, LFTs, troponin all unremarkable. BNP 704. Total cholesterol 199, LDL 103, triglycerides 211, HDL 38. IMPRESSION: Jesenia Iglesais is a 47-year-old woman admitted with the complaint of variable hypertension and hypotension which is a chronic issue with questionable neurologic features prompting a code stroke which was apparently unremarkable and with chest pain described as a pressure sensation in the upper left chest with a history of mild coronary artery disease based on the cardiac catheterization in 06/2016, and an unremarkable nuclear stress test in 01/2017. At this time, she is on telemetry. I agree with current plans. I will repeat her EKG and troponin this morning. She will have a neurologic evaluation. Her blood pressure will be closely monitored and hypertensive medications titrated. She is getting hydralazine, aspirin, Keppra, and Klonopin. We will check postural vital signs. Check stool for occult blood. Check all the records. Monitor I's and O's. We will order an echocardiogram. Anemia is noted. Iron studies are ordered. She can be out of bed to chair as tolerated. She can ambulate carefully with assistance. I will follow along with you and make additional recommendations based on her clinical course. Wes Harris MD [facility] # [id number] KENDELL
[2018-01-18] MEDS: Oxycodone/Acetaminophen 10/325 mg Tab PO PRN (17:38)
--- NOTE | 2018-01-18 19:24 | CARD ---
APPROVED REPORT Date of service: 01/18/2018 EKG Measurement Heart [id number] <Conclusion> Normal sinus rhythm Minimal voltage criteria for LVH, may be normal variant Anterior infarct, age undetermined Abnormal ECG
[2018-01-19] MEDS: Oxycodone/Acetaminophen 10/325 mg Tab PO PRN ×3 (00:27→15:31)
[2018-01-19] MEDS: Apap-Butalbital-Caffeine 325-50-40mg Tab PO SCH ×3 (05:29→21:59)
[2018-01-19 07:01] LABS: HEMOGLOBIN 10.1 g/dL (12.0-16.0); MEAN CELL VOLUME 57.6 fl (80.0-105.0); MEAN CORPUSCULAR HEMOGLOBIN 18.5 pg (25.0-35.0); MEAN CORPUSCULAR HGB CONC 32.1 g/dl (31.0-37.0); MEAN PLATELET VOLUME 9.4 fl (7.0-11.0); RBC 5.47 10^6/uL (3.5-6.1); RED CELL DISTRIBUTION WIDTH 18.6 % (11.5-14.5); WHITE BLOOD COUNT 7.4 10^3/ul (4.5-11.0)
[2018-01-19 07:21] LABS: ALB/GLOB RATIO 1.2 (1.1-1.8); ALBUMIN 3.9 g/dL (3.0-4.8); ALT/SGPT 26 U/L (7-56); AST/SGOT 32 U/L (14-36); BLOOD UREA NITROGEN 8 mg/dL (7-21); CALCIUM 9.1 mg/dL (8.4-10.5); GFR AFRICAN-AMERICAN > 60; GFR NON-AFRICAN AMERICAN > 60
--- NOTE | 2018-01-19 07:53 | CP.PCM.PN ---
Subjective - Date & Time of Evaluation Date of Evaluation: 01/19/18 Time of Evaluation: 07:00 - Subjective Subjective: Stable on 3R. BP 180 sys this AM. No CP or SOB. V/S noted. PE: Lungs: clear Cor.: S1S2 Abd.: soft Ext.: no edema Neuro.; alert I/O = 780/1400 Labs noted: K+= 3.3. All trops. neg. ECG 01/18: RSR, LVH, PRWP, NSSTW changes. Echo: Nl LV fx with LVH. See report. Objective - Vital Signs/Intake and Output Vital Signs (last 24 hours): Temp Pulse Resp BP Pulse Ox 99.0 F 70 20 180/80 H 98 01/18/18 18:00 01/19/18 06:15 01/18/18 18:00 01/19/18 06:15 01/18/18 18:00 Intake and Output: 01/19/18 01/19/18 06:59 18:59 Intake Total 300 Output Total 700 Balance -400 - Medications Medications: Current Medications Acetaminophen/Butalbital/Caffeine (Fioricet) 1 tab PO Q8 [facility] Last Admin: 01/19/18 05:29 Dose: 1 tab Aspirin (Aspirin Chewable) 81 mg PO DAILY [facility] Last Admin: 01/18/18 09:25 Dose: 81 mg Clonazepam (Klonopin) 1 mg PO QID [facility] PRN Reason: Protocol Last Admin: 01/18/18 22:54 Dose: 1 mg Clonidine HCl (Catapres) 0.2 mg PO BID [facility] Last Admin: 01/18/18 17:36 Dose: 0.2 mg Clopidogrel Bisulfate (Plavix) 75 mg PO DAILY [facility] Last Admin: 01/18/18 15:38 Dose: 75 mg Cyclobenzaprine HCl (Flexeril) 10 mg PO TID PRN PRN Reason: Pain, moderate (4-7) Diphenhydramine HCl (Benadryl) 25 mg PO HS PRN PRN Reason: Insomnia Last Admin: 01/19/18 00:27 Dose: 25 mg Fenofibrate (Tricor) 145 mg PO DAILY [facility] Last Admin: 01/18/18 10:36 Dose: 145 mg Hydralazine HCl (Apresoline) 10 mg PO QID [facility] Levetiracetam (Keppra) 500 mg PO TID [facility] Last Admin: 01/18/18 17:35 Dose: 500 mg Levofloxacin (Levaquin) 750 mg PO DAILY [facility] PRN Reason: Protocol Stop: 01/22/18 10:01 Nystatin (Nystatin Oral Susp) 5 ml PO QID [facility] Last Admin: 01/18/18 22:54 Dose: 5 ml Ondansetron HCl (Zofran Inj) 4 mg IVP Q4H PRN PRN Reason: Nausea/Vomiting Last Admin: 01/18/18 09:35 Dose: 4 mg Oxycodone/Acetaminophen (Percocet 10/325 Mg Tab) 1 tab PO Q6H PRN PRN Reason: Pain, moderate (4-7) Last Admin: 01/19/18 00:27 Dose: 1 tab Paroxetine HCl (Paxil) 20 mg PO DAILY [facility] Last Admin: 01/18/18 10:37 Dose: 20 mg Potassium Chloride (K-Dur 20 Meq Er Tab) 20 meq PO BID [facility] Stop: 01/22/18 08:00 - Labs Labs: 01/19/18 06:20 01/19/18 06:20 PT 11.5 SECONDS (9.4-12.5) 01/17/18 17:40 INR 1.01 (0.93-1.08) 01/17/18 17:40 APTT 27.4 Seconds (25.1-36.5) 01/17/18 17:40 Assessment and Plan - Assessment and Plan (Free Text) Assessment: Hypertension CP Weakness S/P multiple dental extractions recently Code Stroke in ER: neg w/u CAD, mild on cath 07/15, Neg nuclear stress test 02/12 PPM Hypothyroidism Seizure Disprder Chronic Pain Cervical and Lumbar radiculopathy / S/P back surgery Migraine SINGH Endometriosis UTIs Thal. Minor Plan: PO Hydralazine and clonidine. Titrate BP meds. Replace K+ Check postural V/S As per Neuro. and Dr. Zuleta. OOB as kay.
[2018-01-19] MEDS: Nystatin 100,000 Units/ml Oral Susp 5 ml UD PO SCH ×4 (09:45→22:00)
[2018-01-19] MEDS: levoFLOXacin 750 MG TAB PO SCH (09:47)
[2018-01-19] MEDS: Potassium Chloride 20 mEq ER Tab PO SCH ×2 (09:47→17:14)
--- NOTE | 2018-01-19 10:10 | CARD ---
APPROVED REPORT Date of service: 01/18/2018 EXAM: Two-dimensional and M-mode echocardiogram with Doppler and color Doppler. Other Information Quality : GoodRhythm : INDICATION Hypertension/HCVD Chest Pain 2D DIMENSIONS Left Atrium (2D)3.9 (1.6-4.0cm)IVSd1.2 (0.7-1.1cm) LVDd4.4 (3.9-5.9cm)PWd1.3 (0.7-1.1cm) LVDs2.9 (2.5-4.0cm)FS (%) 33.9 % LVEF (%)63.0 (>50%) M-Mode DIMENSIONS Aortic Root2.50 (2.2-3.7cm)Aortic Cusp Exc.1.40 (1.5-2.0cm) Aortic Valve AoV Peak Cnhawwla745.0cm/s Mitral Valve MV E Jbbmepak08.1cm/sMV A Xvvyvtmp96.1cm/sE/A ratio0.9 TDI E/Lateral E'0.0E/Medial E'0.0 Tricuspid Valve TR Peak Dqyqnget915fz/sRAP [id number] Peak Gr.16mmHg [id number] LEFT VENTRICLE The left ventricle is normal size. There is mild concentric left ventricular hypertrophy. The left ventricular function is normal. The left ventricular ejection fraction is within the normal range. There is normal LV segmental wall motion. RIGHT VENTRICLE The right ventricle is normal size. There is a pacemaker lead in the right ventricle. ATRIA The left atrium size is normal. The right atrium size is normal. There is a pacemaker lead seen in the right atrium. The interatrial septum is intact with no evidence for an atrial septal defect. AORTIC VALVE The aortic valve is normal in structure. MITRAL VALVE The mitral valve is normal in structure. TRICUSPID VALVE The tricuspid valve is normal in structure. There is mild tricuspid regurgitation. PULMONIC VALVE The pulmonic valve is not well visualized. GREAT VESSELS The aortic root is normal in size. PERICARDIAL EFFUSION There is no pericardial effusion. <Conclusion> The left ventricle is normal size. There is mild concentric left ventricular hypertrophy. The left ventricular function is normal.
--- NOTE | 2018-01-19 11:07 | RAD ---
Date of service: 01/19/2018 PROCEDURE: Left Knee Radiographs. HISTORY: Pain. COMPARISON: None. FINDINGS: BONES: Normal. No fracture. JOINTS: Mild tricompartmental osteoarthritis. Lateral chondrocalcinosis. JOINT EFFUSION: None. OTHER FINDINGS: None. IMPRESSION: Tricompartmental osteoarthritis. Lateral chondrocalcinosis.
--- NOTE | 2018-01-19 11:16 | RAD ---
Date of service: 01/19/2018 PROCEDURE: Radiographs of the left tibia and fibula. HISTORY: evaluate s/p fall COMPARISON: None available. TECHNIQUE: Frontal and lateral views obtained. FINDINGS: BONES: No fracture or destructive lesion. JOINT SPACES: Unremarkable. OTHER FINDINGS: None. IMPRESSION: Unremarkable radiographs of the left tibia and fibula.
--- NOTE | 2018-01-19 13:38 | CP.PCM.PN ---
Subjective - Date & Time of Evaluation Date of Evaluation: 01/19/18 Time of Evaluation: 09:00 - Subjective Subjective: Trent Yip PGY2 - Neurology Progress Note for Dr. Hodge Patient seen and examined this AM. No acute events reported overnight. Patient indicates clinically she feels the same. She was unable to participate with physical therapy. Patient reports she feels her blood pressure is elevated. She denies headache, nausea, vomiting, changes in vision, chest pain, shortness of breath. She indicates continued limited ROM of left lower extremity secondary to pain. Objective - Vital Signs/Intake and Output Vital Signs (last 24 hours): Temp Pulse Resp BP Pulse Ox 98.5 F 90 20 196/92 H 96 01/19/18 07:30 01/19/18 07:30 01/19/18 07:30 01/19/18 12:00 01/19/18 07:30 Intake and Output: 01/19/18 01/19/18 06:59 18:59 Intake Total 300 Output Total 700 Balance -400 - Medications Medications: Current Medications Acetaminophen/Butalbital/Caffeine (Fioricet) 1 tab PO Q8 [facility] Last Admin: 01/19/18 13:26 Dose: 1 tab Amlodipine Besylate (Norvasc) 5 mg PO DAILY [facility] Aspirin (Aspirin Chewable) 81 mg PO DAILY [facility] Last Admin: 01/19/18 09:46 Dose: 81 mg Clonazepam (Klonopin) 1 mg PO QID [facility] PRN Reason: Protocol Last Admin: 01/19/18 13:26 Dose: 1 mg Clonidine HCl (Catapres) 0.2 mg PO BID [facility] Last Admin: 01/19/18 09:47 Dose: 0.2 mg Clopidogrel Bisulfate (Plavix) 75 mg PO DAILY [facility] Last Admin: 01/19/18 09:46 Dose: 75 mg Cyclobenzaprine HCl (Flexeril) 10 mg PO TID PRN PRN Reason: Pain, moderate (4-7) Diphenhydramine HCl (Benadryl) 25 mg PO HS PRN PRN Reason: Insomnia Last Admin: 01/19/18 00:27 Dose: 25 mg Fenofibrate (Tricor) 145 mg PO DAILY [facility] Last Admin: 01/19/18 09:46 Dose: 145 mg Hydralazine HCl (Apresoline) 10 mg PO QID [facility] Last Admin: 01/19/18 13:25 Dose: 10 mg Levetiracetam (Keppra) 500 mg PO TID [facility] Last Admin: 01/19/18 13:25 Dose: 500 mg Levofloxacin (Levaquin) 750 mg PO DAILY [facility] PRN Reason: Protocol Stop: 01/22/18 10:01 Last Admin: 01/19/18 09:47 Dose: 750 mg Nystatin (Nystatin Oral Susp) 5 ml PO QID [facility] Last Admin: 01/19/18 13:25 Dose: 5 ml Ondansetron HCl (Zofran Inj) 4 mg IVP Q4H PRN PRN Reason: Nausea/Vomiting Last Admin: 01/19/18 08:32 Dose: 4 mg Oxycodone/Acetaminophen (Percocet 10/325 Mg Tab) 1 tab PO Q6H PRN PRN Reason: Pain, moderate (4-7) Last Admin: 01/19/18 08:32 Dose: 1 tab Paroxetine HCl (Paxil) 20 mg PO DAILY [facility] Last Admin: 01/19/18 09:45 Dose: 20 mg Potassium Chloride (K-Dur 20 Meq Er Tab) 20 meq PO BID [facility] Stop: 01/22/18 08:00 Last Admin: 01/19/18 09:47 Dose: 20 meq - Labs Labs: 01/19/18 06:20 01/19/18 06:20 PT 11.5 SECONDS (9.4-12.5) 01/17/18 17:40 INR 1.01 (0.93-1.08) 01/17/18 17:40 APTT 27.4 Seconds (25.1-36.5) 01/17/18 17:40 - Constitutional Appears: No Acute Distress - Head Exam Head Exam: ATRAUMATIC, NORMAL INSPECTION, NORMOCEPHALIC - Eye Exam Eye Exam: EOMI, PERRL - Respiratory Exam Respiratory Exam: Clear to Ausculation Bilateral, NORMAL BREATHING PATTERN - Cardiovascular Exam Cardiovascular Exam: REGULAR RHYTHM, +S1, +S2 - GI/Abdominal Exam GI & Abdominal Exam: Soft, Normal Bowel Sounds - Neurological Exam Neurological Exam: Alert, Awake, Oriented x3, Reflexes Normal Neuro motor strength exam: Left Upper Extremity: 5, Right Upper Extremity: 5, Left Lower Extremity: 4, Right Lower Extremity: 5 Additional comments: AAOx3 Mild dysmetria blunted sensation left sided UE, LE compared to right, unchanged from previous exam heel to garcia right appropriate, unable to preform left secondary to pain Patient refusing to stand secondary to pain associated with left leg - Psychiatric Exam Psychiatric exam: Normal Mood - Skin Skin Exam: Dry, Intact Assessment and Plan - Assessment and Plan (Free Text) Assessment: 47 year old female with past medical history seizures, migraines, fibromyalgia, spinal stenosis, anxiety, vasovagal syndrome presenting with chief complaint of labile blood pressures, left sided weakness and numbness. Imaging of CT head is unremarkable and CTA head neck showing mild segmental narrowing in M1 segment. Patient unable to go for MRI secondary to metal rods in cervical spine from previous surgery. Plan: Weakness - Primarily left lower extremity - Etiology: TIA vs. CVA. vs. fibromyalgia vs. trauma - CT head: No acute intracranial abnormality - CTA head neck: mild narrowing of right distal M1 segment of cerebrovasculature - MRI unable to preform secondary to metal rods in cervical spine and pacemaker - Echocardiogram: Normal LV - X-ray of left knee ticomparmental osteoarthritis and lateral chrondocalcinosis - X-ray of left tib/fib unremarkable - Continue PT/OT, follow up PT recommendations at this time - Continue Aspirin, Plavix Hx of Seizures - Continue Keppra - Seizure precautions Case and plan discussed with attending, Dr. Naveen Yip PGY2
--- NOTE | 2018-01-19 15:52 | CP.PCM.PN ---
<Doug Wiseman - Last Filed: 01/19/18 15:49> Subjective - Date & Time of Evaluation Date of Evaluation: 01/19/18 Time of Evaluation: 15:49 - Subjective Subjective: Medicine progress note for Dr. Zuleta's service - Leola Wiseman PGY3 Patient seen and examined at bedside this morning. No acute overnight events or new complaints reported. She did complain of left knee pain and X-Rays were reviewed. Osteoarthritis with no acute fractures/dislocations noted. Otherwise, she denies chest pain, palpitations, SOB. Interested in going to [facility] for PT. Objective - Vital Signs/Intake and Output Vital Signs (last 24 hours): Temp Pulse Resp BP Pulse Ox 98.5 F 90 20 196/92 H 96 01/19/18 07:30 01/19/18 07:30 01/19/18 07:30 01/19/18 12:00 01/19/18 07:30 Intake and Output: 01/19/18 01/19/18 06:59 18:59 Intake Total 300 600 Output Total 700 450 Balance -400 150 - Medications Medications: Current Medications Acetaminophen/Butalbital/Caffeine (Fioricet) 1 tab PO Q8 [facility] Last Admin: 01/19/18 13:26 Dose: 1 tab Amlodipine Besylate (Norvasc) 5 mg PO DAILY [facility] Aspirin (Aspirin Chewable) 81 mg PO DAILY [facility] Last Admin: 01/19/18 09:46 Dose: 81 mg Clonazepam (Klonopin) 1 mg PO QID [facility] PRN Reason: Protocol Last Admin: 01/19/18 13:26 Dose: 1 mg Clonidine HCl (Catapres) 0.2 mg PO BID [facility] Last Admin: 01/19/18 09:47 Dose: 0.2 mg Clopidogrel Bisulfate (Plavix) 75 mg PO DAILY [facility] Last Admin: 01/19/18 09:46 Dose: 75 mg Cyclobenzaprine HCl (Flexeril) 10 mg PO TID PRN PRN Reason: Pain, moderate (4-7) Diphenhydramine HCl (Benadryl) 25 mg PO HS PRN PRN Reason: Insomnia Last Admin: 01/19/18 00:27 Dose: 25 mg Fenofibrate (Tricor) 145 mg PO DAILY [facility] Last Admin: 01/19/18 09:46 Dose: 145 mg Hydralazine HCl (Apresoline) 10 mg PO QID [facility] Last Admin: 01/19/18 13:25 Dose: 10 mg Levetiracetam (Keppra) 500 mg PO TID [facility] Last Admin: 01/19/18 13:25 Dose: 500 mg Levofloxacin (Levaquin) 750 mg PO DAILY [facility] PRN Reason: Protocol Stop: 01/22/18 10:01 Last Admin: 01/19/18 09:47 Dose: 750 mg Nystatin (Nystatin Oral Susp) 5 ml PO QID [facility] Last Admin: 01/19/18 13:25 Dose: 5 ml Ondansetron HCl (Zofran Inj) 4 mg IVP Q4H PRN PRN Reason: Nausea/Vomiting Last Admin: 01/19/18 15:31 Dose: 4 mg Oxycodone/Acetaminophen (Percocet 10/325 Mg Tab) 1 tab PO Q6H PRN PRN Reason: Pain, moderate (4-7) Last Admin: 01/19/18 15:31 Dose: 1 tab Paroxetine HCl (Paxil) 20 mg PO DAILY [facility] Last Admin: 01/19/18 09:45 Dose: 20 mg Potassium Chloride (K-Dur 20 Meq Er Tab) 20 meq PO BID [facility] Stop: 01/22/18 08:00 Last Admin: 01/19/18 09:47 Dose: 20 meq - Labs Labs: 01/19/18 06:20 01/19/18 06:20 PT 11.5 SECONDS (9.4-12.5) 01/17/18 17:40 INR 1.01 (0.93-1.08) 01/17/18 17:40 APTT 27.4 Seconds (25.1-36.5) 01/17/18 17:40 - Constitutional Appears: No Acute Distress - Head Exam Head Exam: ATRAUMATIC, NORMAL INSPECTION, NORMOCEPHALIC - Eye Exam Eye Exam: EOMI Pupil Exam: PERRL - ENT Exam ENT Exam: Mucous Membranes Moist - Respiratory Exam Respiratory Exam: absent: Rales, Rhonchi, Wheezes - Cardiovascular Exam Cardiovascular Exam: +S1, +S2. absent: Gallop, JVD, Rubs - GI/Abdominal Exam GI & Abdominal Exam: Soft. absent: Distended, Firm, Guarding, Rigid, Tenderness , Rebound - Extremities Exam Extremities Exam: absent: Pedal Edema - Neurological Exam Neurological Exam: Alert, Awake, Oriented x3 - Psychiatric Exam Psychiatric exam: Normal Affect, Normal Mood - Skin Skin Exam: Dry, Intact, Normal Color, Warm Assessment and Plan - Assessment and Plan (Free Text) Plan: 47yo female with history of seizures, hypertension, chronic pain, endometriosis , migraines, fibromyalgia, spinal stenosis and anxiety presents with c/o lethargy, difficulty ambulating and right arm weakness 1. Weakness/Chest pain/Dizziness r/o CVA and ACS 2. Hypertension 3. Chronic pain 4. Fibromylagia 5. Hx of migraines 6. hx of spinal stenosis 7. Hx of seizures 8. Hx of endometriosis 9. Anxiety/Depression -CT head was negative for acute intracranial abnormalities; Received ASA in the ED -Patient received hydralazine and clonidine for BP control and we will continue this from her home medications -She is on tricor for dyslipidemia, paxil for anxiety/depression, zofran PRN for nausea/vomiting, klonipin/keppra for seizures -Cardiology and neurology has been consulted for evaluation -Echocardiogram was reviewed and revealed an LVEF of 63% -Left Knee X-ray reviewed and revealed osteoarthritis with no fractures/ dislocations; Left tibula/fibula xray with no acute fractures/dislocations -The patient is on ASA and has a documented allergy to statin -EKG reviewed and revealed sinus bradycardia, anterior infarct age undetermined , minimal voltage criteria for LVH -CXR revealed no active disease -CTA Head/Neck revealed no evidence of endoluminal thrombus or occlusion, mild segmental narrowing in the right distal M1 segment likely related to intracranial atherosclerosis/thrombosis, no evidence of hemodynamically significant stenosis in the internal carotid arteries, patent bilateral vertebral arteries. -PT/OT -Heart healthy diet -OOB as tolerated -Patient interested in going to [facility] for further PT. Patient seen and case discussed/reviewed with attending, Dr. Zuleta <Felice Zuleta - Last Filed: 01/19/18 23:15> Objective - Vital Signs/Intake and Output Vital Signs (last 24 hours): Temp Pulse Resp BP Pulse Ox 97 F L 72 18 118/72 98 01/19/18 16:43 01/19/18 21:59 01/19/18 16:43 01/19/18 21:59 01/19/18 16:43 Intake and Output: 01/19/18 01/20/18 18:59 06:59 Intake Total 1020 Output Total 900 Balance 120 - Medications Medications: Current Medications Acetaminophen/Butalbital/Caffeine (Fioricet) 1 tab PO Q8 [facility] Last Admin: 01/19/18 21:59 Dose: 1 tab Amlodipine Besylate (Norvasc) 5 mg PO DAILY [facility] Aspirin (Aspirin Chewable) 81 mg PO DAILY [facility] Last Admin: 01/19/18 09:46 Dose: 81 mg Clonazepam (Klonopin) 1 mg PO QID [facility] PRN Reason: Protocol Last Admin: 01/19/18 22:00 Dose: 1 mg Clonidine HCl (Catapres) 0.2 mg PO BID [facility] Last Admin: 01/19/18 17:14 Dose: 0.2 mg Clopidogrel Bisulfate (Plavix) 75 mg PO DAILY [facility] Last Admin: 01/19/18 09:46 Dose: 75 mg Cyclobenzaprine HCl (Flexeril) 10 mg PO TID PRN PRN Reason: Pain, moderate (4-7) Diphenhydramine HCl (Benadryl) 25 mg PO HS PRN PRN Reason: Insomnia Last Admin: 01/19/18 00:27 Dose: 25 mg Fenofibrate (Tricor) 145 mg PO DAILY [facility] Last Admin: 01/19/18 09:46 Dose: 145 mg Hydralazine HCl (Apresoline) 10 mg PO QID [facility] Last Admin: 01/19/18 21:59 Dose: 10 mg Levetiracetam (Keppra) 500 mg PO TID [facility] Last Admin: 01/19/18 17:14 Dose: 500 mg Levofloxacin (Levaquin) 750 mg PO DAILY [facility] PRN Reason: Protocol Stop: 01/22/18 10:01 Last Admin: 01/19/18 09:47 Dose: 750 mg Nystatin (Nystatin Oral Susp) 5 ml PO QID [facility] Last Admin: 01/19/18 22:00 Dose: 5 ml Ondansetron HCl (Zofran Inj) 4 mg IVP Q4H PRN PRN Reason: Nausea/Vomiting Last Admin: 01/19/18 15:31 Dose: 4 mg Oxycodone/Acetaminophen (Percocet 10/325 Mg Tab) 1 tab PO Q6H PRN PRN Reason: Pain, moderate (4-7) Last Admin: 01/19/18 15:31 Dose: 1 tab Paroxetine HCl (Paxil) 20 mg PO DAILY [facility] Last Admin: 01/19/18 09:45 Dose: 20 mg Potassium Chloride (K-Dur 20 Meq Er Tab) 20 meq PO BID [facility] Stop: 01/22/18 08:00 Last Admin: 01/19/18 17:14 Dose: 20 meq - Labs Labs: PT 11.5 SECONDS (9.4-12.5) 01/17/18 17:40 INR 1.01 (0.93-1.08) 01/17/18 17:40 APTT 27.4 Seconds (25.1-36.5) 01/17/18 17:40 Assessment and Plan - Assessment and Plan (Free Text) Plan: Pt seen and examined. I have reviewed the note of the medical staffing coordinator and agree with it. I have discussed the assessment and plan with the resident. I have reviewed the patient's labs and medications. Pt states she fell and is not able to walk well. PT evaluation. She is interested in going to [facility].Will get Ortho evaluation. Cardiology is following. On ASA.
[2018-01-20] MEDS: Oxycodone/Acetaminophen 10/325 mg Tab PO PRN ×3 (00:09→16:29)
[2018-01-20] MEDS: Apap-Butalbital-Caffeine 325-50-40mg Tab PO SCH ×3 (05:03→21:45)
[2018-01-20 07:03] LABS: BLOOD UREA NITROGEN 9 mg/dL (7-21); CALCIUM 8.9 mg/dL (8.4-10.5); GFR AFRICAN-AMERICAN > 60; GFR NON-AFRICAN AMERICAN > 60
--- NOTE | 2018-01-20 08:26 | CP.PCM.PN ---
<Doug Wiseman - Last Filed: 01/20/18 10:48> Subjective - Date & Time of Evaluation Date of Evaluation: 01/20/18 Time of Evaluation: 08:24 - Subjective Subjective: Medicine progress note for Dr. Zuleta's service - Leola Wiseman PGY3 Patient seen and examined at bedside this morning. No acute overnight events or new complaints. She reported fluctuating blood pressure readings which has been managed by cardiology. Encouraged ambulation with physical therapy. Pending eval for [facility] for rehab. Denies chest pain, palpitations, SOB. Objective - Vital Signs/Intake and Output Vital Signs (last 24 hours): Temp Pulse Resp BP Pulse Ox 98.4 F 65 19 160/78 H 98 01/20/18 08:15 01/20/18 08:15 01/20/18 08:15 01/20/18 08:15 01/20/18 08:15 Intake and Output: 01/20/18 01/20/18 06:59 18:59 Intake Total 1260 Output Total 900 Balance 360 - Medications Medications: Current Medications Acetaminophen/Butalbital/Caffeine (Fioricet) 1 tab PO Q8 [facility] Last Admin: 01/20/18 05:03 Dose: 1 tab Amlodipine Besylate (Norvasc) 5 mg PO DAILY [facility] Aspirin (Aspirin Chewable) 81 mg PO DAILY [facility] Last Admin: 01/19/18 09:46 Dose: 81 mg Clonazepam (Klonopin) 1 mg PO QID [facility] PRN Reason: Protocol Last Admin: 01/19/18 22:00 Dose: 1 mg Clonidine HCl (Catapres) 0.2 mg PO BID [facility] Last Admin: 01/19/18 17:14 Dose: 0.2 mg Clopidogrel Bisulfate (Plavix) 75 mg PO DAILY [facility] Last Admin: 01/19/18 09:46 Dose: 75 mg Cyclobenzaprine HCl (Flexeril) 10 mg PO TID PRN PRN Reason: Pain, moderate (4-7) Diphenhydramine HCl (Benadryl) 25 mg PO HS PRN PRN Reason: Insomnia Last Admin: 01/20/18 00:09 Dose: 25 mg Fenofibrate (Tricor) 145 mg PO DAILY [facility] Last Admin: 01/19/18 09:46 Dose: 145 mg Hydralazine HCl (Apresoline) 10 mg PO QID [facility] Last Admin: 01/19/18 21:59 Dose: 10 mg Levetiracetam (Keppra) 500 mg PO TID [facility] Last Admin: 01/19/18 17:14 Dose: 500 mg Levofloxacin (Levaquin) 750 mg PO DAILY [facility] PRN Reason: Protocol Stop: 01/22/18 10:01 Last Admin: 01/19/18 09:47 Dose: 750 mg Nystatin (Nystatin Oral Susp) 5 ml PO QID [facility] Last Admin: 01/19/18 22:00 Dose: 5 ml Ondansetron HCl (Zofran Inj) 4 mg IVP Q4H PRN PRN Reason: Nausea/Vomiting Last Admin: 01/19/18 15:31 Dose: 4 mg Oxycodone/Acetaminophen (Percocet 10/325 Mg Tab) 1 tab PO Q6H PRN PRN Reason: Pain, moderate (4-7) Last Admin: 01/20/18 00:09 Dose: 1 tab Paroxetine HCl (Paxil) 20 mg PO DAILY [facility] Last Admin: 01/19/18 09:45 Dose: 20 mg Potassium Chloride (K-Dur 20 Meq Er Tab) 20 meq PO BID [facility] Stop: 01/22/18 08:00 Last Admin: 01/19/18 17:14 Dose: 20 meq - Labs Labs: 01/20/18 06:20 PT 11.5 SECONDS (9.4-12.5) 01/17/18 17:40 INR 1.01 (0.93-1.08) 01/17/18 17:40 APTT 27.4 Seconds (25.1-36.5) 01/17/18 17:40 - Constitutional Appears: No Acute Distress - Head Exam Head Exam: ATRAUMATIC, NORMAL INSPECTION, NORMOCEPHALIC - Eye Exam Eye Exam: EOMI Pupil Exam: PERRL - ENT Exam ENT Exam: Mucous Membranes Moist - Neck Exam Neck Exam: Normal Inspection - Respiratory Exam Respiratory Exam: absent: Rales, Rhonchi, Wheezes - Cardiovascular Exam Cardiovascular Exam: +S1, +S2. absent: Gallop, Rubs - GI/Abdominal Exam GI & Abdominal Exam: Soft. absent: Distended, Firm, Guarding, Rigid, Tenderness , Rebound - Extremities Exam Extremities Exam: absent: Pedal Edema - Neurological Exam Neurological Exam: Alert, Awake, CN II-XII Intact, Oriented x3 - Psychiatric Exam Psychiatric exam: Normal Affect, Normal Mood - Skin Skin Exam: Dry, Intact, Normal Color, Warm Assessment and Plan - Assessment and Plan (Free Text) Plan: 47yo female with history of seizures, hypertension, chronic pain, endometriosis , migraines, fibromyalgia, spinal stenosis and anxiety presents with c/o lethargy, difficulty ambulating and right arm weakness 1. Weakness/Chest pain/Dizziness r/o CVA and ACS 2. Hypertension 3. Chronic pain 4. Fibromylagia 5. Hx of migraines 6. hx of spinal stenosis 7. Hx of seizures 8. Hx of endometriosis 9. Anxiety/Depression -CT head was negative for acute intracranial abnormalities; Received ASA in the ED -Patient received hydralazine and clonidine for BP control and we will continue this from her home medications -She is on tricor for dyslipidemia, paxil for anxiety/depression, zofran PRN for nausea/vomiting, klonipin/keppra for seizures -Cardiology and neurology has been consulted for evaluation -Echocardiogram was reviewed and revealed an LVEF of 63% -Left Knee X-ray reviewed and revealed osteoarthritis with no fractures/ dislocations; Left tibula/fibula xray with no acute fractures/dislocations -Ortho eval pending due to difficulty ambulating -The patient is on ASA and has a documented allergy to statin -EKG reviewed and revealed sinus bradycardia, anterior infarct age undetermined , minimal voltage criteria for LVH -CXR revealed no active disease -CTA Head/Neck revealed no evidence of endoluminal thrombus or occlusion, mild segmental narrowing in the right distal M1 segment likely related to intracranial atherosclerosis/thrombosis, no evidence of hemodynamically significant stenosis in the internal carotid arteries, patent bilateral vertebral arteries. -PT/OT -Heart healthy diet -OOB as tolerated -Patient interested in going to [facility] for further PT. Patient seen and case discussed/reviewed with attending, Dr. Zuleta <Felice Zuleta - Last Filed: 01/20/18 23:36> Objective - Vital Signs/Intake and Output Vital Signs (last 24 hours): Temp Pulse Resp BP Pulse Ox 98.6 F 84 18 174/91 H 97 01/20/18 16:47 01/20/18 18:00 01/20/18 16:47 01/20/18 17:32 01/20/18 16:47 Intake and Output: 01/20/18 01/21/18 18:59 06:59 Intake Total 1140 Output Total 800 Balance 340 - Medications Medications: Current Medications Acetaminophen/Butalbital/Caffeine (Fioricet) 1 tab PO Q8 [facility] Last Admin: 01/20/18 21:45 Dose: 1 tab Amlodipine Besylate (Norvasc) 5 mg PO DAILY [facility] Last Admin: 01/20/18 09:11 Dose: 5 mg Aspirin (Aspirin Chewable) 81 mg PO DAILY [facility] Last Admin: 01/20/18 09:11 Dose: 81 mg Clonazepam (Klonopin) 1 mg PO QID [facility] PRN Reason: Protocol Last Admin: 01/20/18 21:44 Dose: 1 mg Clonidine HCl (Catapres) 0.2 mg PO BID [facility] Last Admin: 01/20/18 17:32 Dose: 0.2 mg Clopidogrel Bisulfate (Plavix) 75 mg PO DAILY [facility] Last Admin: 01/20/18 09:10 Dose: 75 mg Cyclobenzaprine HCl (Flexeril) 10 mg PO TID PRN PRN Reason: Pain, moderate (4-7) Last Admin: 01/20/18 17:31 Dose: 10 mg Diphenhydramine HCl (Benadryl) 25 mg PO HS PRN PRN Reason: Insomnia Last Admin: 01/20/18 00:09 Dose: 25 mg Fenofibrate (Tricor) 145 mg PO DAILY [facility] Last Admin: 01/20/18 09:11 Dose: 145 mg Hydralazine HCl (Apresoline) 25 mg PO TID [facility] Last Admin: 01/20/18 17:32 Dose: 25 mg Hydralazine HCl (Apresoline) 10 mg PO ONCE PRN PRN Reason: Systolic Blood Pressure Last Admin: 01/20/18 16:30 Dose: 10 mg Levetiracetam (Keppra) 500 mg PO TID [facility] Last Admin: 01/20/18 17:32 Dose: 500 mg Levofloxacin (Levaquin) 750 mg PO DAILY [facility] PRN Reason: Protocol Stop: 01/22/18 10:01 Last Admin: 01/20/18 09:10 Dose: 750 mg Nystatin (Nystatin Oral Susp) 5 ml PO QID [facility] Last Admin: 01/20/18 21:44 Dose: 5 ml Ondansetron HCl (Zofran Inj) 4 mg IVP Q4H PRN PRN Reason: Nausea/Vomiting Last Admin: 01/20/18 12:34 Dose: 4 mg Oxycodone/Acetaminophen (Percocet 10/325 Mg Tab) 1 tab PO Q6H PRN PRN Reason: Pain, moderate (4-7) Last Admin: 01/20/18 16:29 Dose: 1 tab Paroxetine HCl (Paxil) 20 mg PO DAILY [facility] Last Admin: 01/20/18 09:11 Dose: 20 mg Potassium Chloride (K-Dur 20 Meq Er Tab) 20 meq PO BID [facility] Stop: 01/22/18 08:00 Last Admin: 01/20/18 17:32 Dose: 20 meq - Labs Labs: 01/20/18 06:20 PT 11.5 SECONDS (9.4-12.5) 01/17/18 17:40 INR 1.01 (0.93-1.08) 01/17/18 17:40 APTT 27.4 Seconds (25.1-36.5) 01/17/18 17:40 Assessment and Plan - Assessment and Plan (Free Text) Plan: Pt seen and examined. I have reviewed the note of the back office medical assistant and agree with it. I have discussed the assessment and plan with the resident. I have reviewed the patient's labs and medications. Pt is having a difficulty in walking. HTN is very labile. Echo is reviewed. She is on pain meds. She is waiting to go to [facility]
[2018-01-20] MEDS: levoFLOXacin 750 MG TAB PO SCH (09:10)
[2018-01-20] MEDS: Nystatin 100,000 Units/ml Oral Susp 5 ml UD PO SCH ×4 (09:10→21:44)
[2018-01-20] MEDS: Potassium Chloride 20 mEq ER Tab PO SCH ×2 (09:10→17:32)
--- NOTE | 2018-01-20 13:49 | PN ---
DATE: 01/20/2018 SUBJECTIVE: The patient is seen lying in bed on 3R. She is unhappy as she feels that her blood pressure remains erratic and the night staff does not appropriately treat her elevated readings. She has had occasional headaches which have improved with Fioricet use. CURRENT MEDICATIONS: Include hydralazine 10 mg 4 times daily, aspirin once daily, Catapres 0.2 mg b.i.d., Flexeril 10 mg t.i.d., Norvasc 5 mg daily, Paxil 20 mg daily, Tricor, Plavix 75 mg daily, Levaquin and Klonopin 1 mg 4 times as well as Keppra. PHYSICAL EXAMINATION: GENERAL: She is an overweight middle-aged woman. VITAL SIGNS: Blood pressure is 160/78 with pulse of 66 sinus, respirations are 14. She is afebrile. HEENT: No JVD. CHEST: Clear to auscultation and percussion. HEART: PMI displaced laterally. No pathological gallops noted. ABDOMEN: Soft, nontender with bowel sounds. EXTREMITIES: No edema. DIAGNOSTIC DATA: Potassium is 3.8, BUN and creatinine is 9 and 0.8. IMPRESSION: 1. Accelerated hypertension with fair control. 2. Recent chest pain. Cardiac enzymes negative. Prior cardiac catheterization revealed mild coronary disease. 3. Conduction system disease, status post permanent pacemaker implant. 4. Rest of problems as noted. RECOMMENDATIONS: Her hydralazine dose will be increased to 25 mg three times daily. Rest of the medications will continue unchanged. Sodium restriction is advised. Increased activity and weight loss was encouraged as well. I will be happy to follow and make further recommendations as appropriate. Rivera Guzman MD
[2018-01-20] MEDS ORDERED: MethylPREDNISolone Depo 40 mg/ml Inj IM ONE (16:00)
[2018-01-20] MEDS ORDERED: Bupivacaine 0.5% Inj(30mL) IJ ONE (16:00)
[2018-01-20 18:06] LABS: FLUID TYPE SYNOVIAL FLUID; SF GROSS APPEARANCE BLOODY (CLEAR)
[2018-01-20 18:08] LABS: SYNOVIAL FLUID COMMENT RED/CLOUDY
--- NOTE | 2018-01-20 19:19 | CP.PCM.PN ---
Subjective - Date & Time of Evaluation Date of Evaluation: 01/20/18 Time of Evaluation: 10:00 - Subjective Subjective: Jennifer Villalobos PGY-1, [employer], Neurology Consult Progress Note Patient was examined at bedside. No acute events overnight. States that she is feeling better today. Amenable to outpatient rehab for further physical therapy. Denies loss of consciousness, headache, nausea, vomiting, changes in vision or hearing, bowel or bladder incontinence. Objective - Vital Signs/Intake and Output Vital Signs (last 24 hours): Temp Pulse Resp BP Pulse Ox 98.6 F 84 18 174/91 H 97 01/20/18 16:47 01/20/18 18:00 01/20/18 16:47 01/20/18 17:32 01/20/18 16:47 Intake and Output: 01/20/18 01/21/18 18:59 06:59 Intake Total 1140 Output Total 800 Balance 340 - Medications Medications: Current Medications Acetaminophen/Butalbital/Caffeine (Fioricet) 1 tab PO Q8 [facility] Last Admin: 01/20/18 14:05 Dose: 1 tab Amlodipine Besylate (Norvasc) 5 mg PO DAILY [facility] Last Admin: 01/20/18 09:11 Dose: 5 mg Aspirin (Aspirin Chewable) 81 mg PO DAILY [facility] Last Admin: 01/20/18 09:11 Dose: 81 mg Clonazepam (Klonopin) 1 mg PO QID [facility] PRN Reason: Protocol Last Admin: 01/20/18 17:31 Dose: 1 mg Clonidine HCl (Catapres) 0.2 mg PO BID [facility] Last Admin: 01/20/18 17:32 Dose: 0.2 mg Clopidogrel Bisulfate (Plavix) 75 mg PO DAILY [facility] Last Admin: 01/20/18 09:10 Dose: 75 mg Cyclobenzaprine HCl (Flexeril) 10 mg PO TID PRN PRN Reason: Pain, moderate (4-7) Last Admin: 01/20/18 17:31 Dose: 10 mg Diphenhydramine HCl (Benadryl) 25 mg PO HS PRN PRN Reason: Insomnia Last Admin: 01/20/18 00:09 Dose: 25 mg Fenofibrate (Tricor) 145 mg PO DAILY [facility] Last Admin: 01/20/18 09:11 Dose: 145 mg Hydralazine HCl (Apresoline) 25 mg PO TID [facility] Last Admin: 01/20/18 17:32 Dose: 25 mg Hydralazine HCl (Apresoline) 10 mg PO ONCE PRN PRN Reason: Systolic Blood Pressure Last Admin: 01/20/18 16:30 Dose: 10 mg Levetiracetam (Keppra) 500 mg PO TID [facility] Last Admin: 01/20/18 17:32 Dose: 500 mg Levofloxacin (Levaquin) 750 mg PO DAILY [facility] PRN Reason: Protocol Stop: 01/22/18 10:01 Last Admin: 01/20/18 09:10 Dose: 750 mg Nystatin (Nystatin Oral Susp) 5 ml PO QID [facility] Last Admin: 01/20/18 17:31 Dose: 5 ml Ondansetron HCl (Zofran Inj) 4 mg IVP Q4H PRN PRN Reason: Nausea/Vomiting Last Admin: 01/20/18 12:34 Dose: 4 mg Oxycodone/Acetaminophen (Percocet 10/325 Mg Tab) 1 tab PO Q6H PRN PRN Reason: Pain, moderate (4-7) Last Admin: 01/20/18 16:29 Dose: 1 tab Paroxetine HCl (Paxil) 20 mg PO DAILY [facility] Last Admin: 01/20/18 09:11 Dose: 20 mg Potassium Chloride (K-Dur 20 Meq Er Tab) 20 meq PO BID [facility] Stop: 01/22/18 08:00 Last Admin: 01/20/18 17:32 Dose: 20 meq - Labs Labs: 01/20/18 06:20 PT 11.5 SECONDS (9.4-12.5) 01/17/18 17:40 INR 1.01 (0.93-1.08) 01/17/18 17:40 APTT 27.4 Seconds (25.1-36.5) 01/17/18 17:40 - Additional Findings Additional findings: - Constitutional Appears: Non-toxic, No Acute Distress - Head Exam Head Exam: ATRAUMATIC, NORMOCEPHALIC - Eye Exam Eye Exam: EOMI, PERRL - ENT Exam ENT Exam: Mucous Membranes Moist, Normal Exam - Neck Exam Neck exam: Positive for: Normal Inspection - Respiratory Exam Respiratory Exam: Clear to Auscultation Bilateral, NORMAL BREATHING PATTERN - Cardiovascular Exam Cardiovascular Exam: REGULAR RHYTHM, +S1, +S2 - GI/Abdominal Exam GI & Abdominal Exam: Normal Bowel Sounds, Soft. absent: Guarding, Rebound - Extremities Exam Extremities exam: Positive for: normal inspection - Back Exam Back exam: NORMAL INSPECTION - Expanded Neurological Exam Expanded Patient oriented to: person, place, time Cranial nerves: EOM's Intact: Normal, Facial Sensation: Abnormal Left ( Decreased sensation in V1, V3 distribution), Nystagmus: Abnormal Left, Abnormal Right, Tongue Deviation: Normal Cerebellar Function: Finger to Nose: Normal, Heel to Rondon: Normal Upper motor neuron: Pronator Drift: Normal Sensory exam: Lower Extremity Light Touch: Abnormal Left (Paresthesias in LLE), Upper Extremity Light Touch: Normal (Numbness in fingertips) Neuro motor strength exam: Left Upper Extremity: 5, Right Upper Extremity: 5, Left Lower Extremity: 4, Right Lower Extremity: 5 Coma Scale Eye Opening: SPONTANEOUS Coma Scale Motor Response: OBEYS COMMANDS Coma Scale Verbal: Oriented Coma Scale Total: 15 - Psychiatric Exam Psychiatric exam: Normal Affect, Normal Mood - Skin Skin Exam: Dry, Intact, Normal Color Assessment and Plan - Assessment and Plan (Free Text) Assessment: Patient is a 47 year old female with past medical history seizures, migraines, fibromyalgia, spinal stenosis, anxiety, vasovagal syndrome presenting with chief complaint of labile blood pressures along with increasing weakness, found to unremarkable CT head and mild segmental narrowing in M1 segment on CTA head and neck. Plan: Weakness - Vasovagal vs. TIA vs. CVA - CT head shows no acute intracranial abnormality - CTA head and neck shows no evidence of endoluminal thrombus or occlusion, mild segmental narrowing in right distal M1 segment likely related to intracranial atherosclerosis/thrombosis, no evidence of hemodynamically significant stenosis in internal carotid arteries, patent bilateral vertebral arteries - MRI unable to be obtained due to pacemaker - X-ray of left lower extremity to evaluate for injury s/p fall unremarkable - Followup orthostatic vital signs - Continue aspirin and Keppra - Plavix 75 mg QD - PT/OT consulted. Outpatient rehab at [facility] - Seizure precautions - Out of bed as tolerated - Further recommendations per Dr. Hodge Case discussed and plan approved by attending physician Dr. Naveen Villalobos PGY-1
[2018-01-21] MEDS: Oxycodone/Acetaminophen 10/325 mg Tab PO PRN ×3 (02:14→18:11)
[2018-01-21] MEDS: Apap-Butalbital-Caffeine 325-50-40mg Tab PO SCH ×3 (05:09→22:26)
--- NOTE | 2018-01-21 07:34 | CON ---
DATE: 01/20/2018 ORTHOPEDIC CONSULTATION LOCATION: Room 378, bed 1. HISTORY OF PRESENT ILLNESS: The patient is in the hospital under Dr. Zuleta and complained of left knee pain. X-rays showed calcium pyrophosphate disease, which is calcification of the menisci in this case laterally. In this case, that she has pseudogout and with some pain. I examined her, she has an effusion of the left knee, so we aspirated 20 mL of serosanguineous fluid. No evidence of infection. No evidence of blood. We injected Depo-Medrol, Marcaine and I will get some standing x-rays to see if there is any thinning of the articular cartilage. The cortisone injection should help her ambulate better with physical therapy and if there is no signs of a fracture, she can ambulate with the help of a walker or cane. She has an effusion of her left knee. We aspirated 30 mL of fluid. We injected with Depo-Medrol, Marcaine and continue physical therapy and we will get her to lose her weight, if that is possible, so if she does have significant arthritis, it will be easier to treat medically. FINAL DIAGNOSES: Osteoarthritis of left knee with pseudogout and we injected her with Depo-Medrol and Marcaine after we took out 30 mL of serosanguineous fluid. We will send the fluid for cultures, cell count, crystals and get standing x-rays of both knees. Johnathon Vargas DO
--- NOTE | 2018-01-21 08:15 | CP.PCM.PN ---
<Doug Wiseman - Last Filed: 01/21/18 23:11> Subjective - Date & Time of Evaluation Date of Evaluation: 01/21/18 Time of Evaluation: 08:11 - Subjective Subjective: Medicine progress note for Dr. Zuleta's service - Leola Wiseman PGY3 Patient seen and examined at bedside this morning. No acute overnight events or new complaints reported. Denies chest pain, palpitations, SOB. Objective - Vital Signs/Intake and Output Vital Signs (last 24 hours): Temp Pulse Resp BP Pulse Ox 98.6 F 59 L 18 174/91 H 97 01/20/18 16:47 01/21/18 06:00 01/20/18 16:47 01/20/18 17:32 01/20/18 16:47 Intake and Output: 01/21/18 01/21/18 06:59 18:59 Intake Total 360 Output Total 1200 Balance -840 - Medications Medications: Current Medications Acetaminophen/Butalbital/Caffeine (Fioricet) 1 tab PO Q8 [facility] Last Admin: 01/21/18 05:09 Dose: 1 tab Amlodipine Besylate (Norvasc) 5 mg PO DAILY [facility] Last Admin: 01/20/18 09:11 Dose: 5 mg Aspirin (Aspirin Chewable) 81 mg PO DAILY [facility] Last Admin: 01/20/18 09:11 Dose: 81 mg Clonazepam (Klonopin) 1 mg PO QID [facility] PRN Reason: Protocol Last Admin: 01/20/18 21:44 Dose: 1 mg Clonidine HCl (Catapres) 0.2 mg PO BID [facility] Last Admin: 01/20/18 17:32 Dose: 0.2 mg Clopidogrel Bisulfate (Plavix) 75 mg PO DAILY [facility] Last Admin: 01/20/18 09:10 Dose: 75 mg Cyclobenzaprine HCl (Flexeril) 10 mg PO TID PRN PRN Reason: Pain, moderate (4-7) Last Admin: 01/21/18 02:15 Dose: 10 mg Diphenhydramine HCl (Benadryl) 25 mg PO HS PRN PRN Reason: Insomnia Last Admin: 01/20/18 00:09 Dose: 25 mg Fenofibrate (Tricor) 145 mg PO DAILY [facility] Last Admin: 01/20/18 09:11 Dose: 145 mg Hydralazine HCl (Apresoline) 25 mg PO TID [facility] Last Admin: 01/20/18 17:32 Dose: 25 mg Hydralazine HCl (Apresoline) 10 mg PO ONCE PRN PRN Reason: Systolic Blood Pressure Last Admin: 01/20/18 16:30 Dose: 10 mg Levetiracetam (Keppra) 500 mg PO TID [facility] Last Admin: 01/20/18 17:32 Dose: 500 mg Levofloxacin (Levaquin) 750 mg PO DAILY [facility] PRN Reason: Protocol Stop: 01/22/18 10:01 Last Admin: 01/20/18 09:10 Dose: 750 mg Nystatin (Nystatin Oral Susp) 5 ml PO QID [facility] Last Admin: 01/20/18 21:44 Dose: 5 ml Ondansetron HCl (Zofran Inj) 4 mg IVP Q4H PRN PRN Reason: Nausea/Vomiting Last Admin: 01/21/18 03:43 Dose: 4 mg Oxycodone/Acetaminophen (Percocet 10/325 Mg Tab) 1 tab PO Q6H PRN PRN Reason: Pain, moderate (4-7) Last Admin: 01/21/18 02:14 Dose: 1 tab Paroxetine HCl (Paxil) 20 mg PO DAILY [facility] Last Admin: 01/20/18 09:11 Dose: 20 mg Potassium Chloride (K-Dur 20 Meq Er Tab) 20 meq PO BID [facility] Stop: 01/22/18 08:00 Last Admin: 01/20/18 17:32 Dose: 20 meq - Labs Labs: 01/20/18 06:20 PT 11.5 SECONDS (9.4-12.5) 01/17/18 17:40 INR 1.01 (0.93-1.08) 01/17/18 17:40 APTT 27.4 Seconds (25.1-36.5) 01/17/18 17:40 - Constitutional Appears: No Acute Distress - Head Exam Head Exam: ATRAUMATIC, NORMAL INSPECTION, NORMOCEPHALIC - Eye Exam Eye Exam: EOMI Pupil Exam: PERRL - ENT Exam ENT Exam: Mucous Membranes Moist - Respiratory Exam Respiratory Exam: Clear to Ausculation Bilateral. absent: Rales, Rhonchi, Wheezes - Cardiovascular Exam Cardiovascular Exam: RRR, +S1, +S2. absent: Clicks, Gallop, JVD, Rubs - GI/Abdominal Exam GI & Abdominal Exam: Soft. absent: Distended, Firm, Guarding, Rigid, Tenderness , Rebound - Extremities Exam Extremities Exam: absent: Calf Tenderness, Pedal Edema - Neurological Exam Neurological Exam: Alert, Awake, CN II-XII Intact, Oriented x3 - Psychiatric Exam Psychiatric exam: Normal Affect, Normal Mood - Skin Skin Exam: Dry, Intact, Normal Color, Warm Assessment and Plan - Assessment and Plan (Free Text) Plan: 47yo female with history of seizures, hypertension, chronic pain, endometriosis , migraines, fibromyalgia, spinal stenosis and anxiety presents with c/o lethargy, difficulty ambulating and right arm weakness 1. Weakness/Chest pain/Dizziness r/o CVA and ACS 2. Hypertension 3. Chronic pain 4. Fibromylagia 5. Left knee pain 6. Hx of migraines 7. hx of spinal stenosis 8. Hx of seizures 9. Hx of endometriosis 10. Anxiety/Depression -Patient has been started on norvasc and hydralazine was increased for BP control as per cardiology recommendations -She is on tricor for dyslipidemia, paxil for anxiety/depression, zofran PRN for nausea/vomiting, klonipin/keppra for seizures -Left Knee X-ray reviewed and revealed osteoarthritis with no fractures/ dislocations; Left tibula/fibula xray with no acute fractures/dislocations -Ortho was consulted for evaluation of knee pain and synovial fluid sent for analysis; pain thought to be secondary to osteoarthritis in the setting of pseudogout; knee was injected with depo and marcaine -CT head was negative for acute intracranial abnormalities; Received ASA in the ED -Cardiology and neurology has been consulted for evaluation -Echocardiogram was reviewed and revealed an LVEF of 63% -The patient is on ASA and has a documented allergy to statin -EKG reviewed and revealed sinus bradycardia, anterior infarct age undetermined , minimal voltage criteria for LVH -CXR revealed no active disease -CTA Head/Neck revealed no evidence of endoluminal thrombus or occlusion, mild segmental narrowing in the right distal M1 segment likely related to intracranial atherosclerosis/thrombosis, no evidence of hemodynamically significant stenosis in the internal carotid arteries, patent bilateral vertebral arteries. -PT/OT -Heart healthy diet -OOB as tolerated -Patient interested in going to [facility] for further PT. Patient seen and case discussed/reviewed with attending, Dr. Zuleta <Felice Zuleta S - Last Filed: 01/21/18 23:59> Objective - Vital Signs/Intake and Output Vital Signs (last 24 hours): Temp Pulse Resp BP Pulse Ox 97 F L 66 18 154/80 H 97 01/21/18 16:42 01/21/18 18:22 01/21/18 16:42 01/21/18 18:22 01/21/18 16:42 Intake and Output: 01/21/18 01/22/18 18:59 06:59 Intake Total 360 1800 Output Total 1200 1400 Balance -840 400 - Medications Medications: Current Medications Acetaminophen/Butalbital/Caffeine (Fioricet) 1 tab PO Q8 [facility] Last Admin: 01/21/18 22:26 Dose: 1 tab Amlodipine Besylate (Norvasc) 5 mg PO DAILY [facility] Last Admin: 01/21/18 10:05 Dose: 5 mg Aspirin (Aspirin Chewable) 81 mg PO DAILY [facility] Last Admin: 01/21/18 10:04 Dose: 81 mg Clonazepam (Klonopin) 1 mg PO QID [facility] PRN Reason: Protocol Last Admin: 01/21/18 22:26 Dose: 1 mg Clonidine HCl (Catapres) 0.2 mg PO BID [facility] Last Admin: 01/21/18 18:10 Dose: 0.2 mg Clopidogrel Bisulfate (Plavix) 75 mg PO DAILY [facility] Last Admin: 01/21/18 10:06 Dose: 75 mg Cyclobenzaprine HCl (Flexeril) 10 mg PO TID PRN PRN Reason: Pain, moderate (4-7) Last Admin: 01/21/18 02:15 Dose: 10 mg Diphenhydramine HCl (Benadryl) 25 mg PO HS PRN PRN Reason: Insomnia Last Admin: 01/20/18 00:09 Dose: 25 mg Fenofibrate (Tricor) 145 mg PO DAILY [facility] Last Admin: 01/21/18 10:07 Dose: 145 mg Hydralazine HCl (Apresoline) 10 mg PO ONCE PRN PRN Reason: Systolic Blood Pressure Last Admin: 01/20/18 16:30 Dose: 10 mg Hydralazine HCl (Apresoline) 25 mg PO TID [facility] Last Admin: 01/21/18 18:22 Dose: 25 mg Levetiracetam (Keppra) 500 mg PO TID [facility] Last Admin: 01/21/18 18:11 Dose: 500 mg Levofloxacin (Levaquin) 750 mg PO DAILY [facility] PRN Reason: Protocol Stop: 01/22/18 10:01 Last Admin: 01/21/18 10:12 Dose: 750 mg Nystatin (Nystatin Oral Susp) 5 ml PO QID [facility] Last Admin: 01/21/18 22:26 Dose: 5 ml Ondansetron HCl (Zofran Inj) 4 mg IVP Q4H PRN PRN Reason: Nausea/Vomiting Last Admin: 01/21/18 14:23 Dose: 4 mg Oxycodone/Acetaminophen (Percocet 10/325 Mg Tab) 1 tab PO Q6H PRN PRN Reason: Pain, moderate (4-7) Last Admin: 01/21/18 18:11 Dose: 1 tab Paroxetine HCl (Paxil) 20 mg PO DAILY [facility] Last Admin: 01/21/18 10:06 Dose: 20 mg Polyethylene Glycol (Miralax) 17 gm PO BID [facility] Last Admin: 01/21/18 18:11 Dose: 17 gm Potassium Chloride (K-Dur 20 Meq Er Tab) 20 meq PO BID [facility] Stop: 01/22/18 08:00 Last Admin: 01/21/18 18:11 Dose: 20 meq - Labs Labs: 01/20/18 06:20 PT 11.5 SECONDS (9.4-12.5) 01/17/18 17:40 INR 1.01 (0.93-1.08) 01/17/18 17:40 APTT 27.4 Seconds (25.1-36.5) 01/17/18 17:40 Assessment and Plan - Assessment and Plan (Free Text) Plan: Pt seen and examined. I have reviewed the note of the medical transcriptionist and agree with it. I have discussed the assessment and plan with the resident. I have reviewed the patient's labs and medications. Pt waiting to go to [facility]. CTA reviewed. PT. Ortho following.
--- NOTE | 2018-01-21 08:32 | CP.PCM.PN ---
Subjective - Date & Time of Evaluation Date of Evaluation: 01/21/18 Time of Evaluation: 07:00 - Subjective Subjective: Stable on 3R. BPs still elevated at times. + SINGH. No CP or SOB. She reports that she is "homeless" now. V/S noted. PE: Lungs: clear Cor.: S1S2 Abd.: soft Ext.: no edema Neuro.; alert I/O = 360/1200 Labs noted: BMP OK ECG 01/18: RSR, LVH, PRWP, NSSTW changes. Echo: Nl LV fx with LVH. See report. Objective - Vital Signs/Intake and Output Vital Signs (last 24 hours): Temp Pulse Resp BP Pulse Ox 98.6 F 59 L 18 174/91 H 97 01/20/18 16:47 01/21/18 06:00 01/20/18 16:47 01/20/18 17:32 01/20/18 16:47 Intake and Output: 01/21/18 01/21/18 06:59 18:59 Intake Total 360 Output Total 1200 Balance -840 - Medications Medications: Current Medications Acetaminophen/Butalbital/Caffeine (Fioricet) 1 tab PO Q8 [facility] Last Admin: 01/21/18 05:09 Dose: 1 tab Amlodipine Besylate (Norvasc) 5 mg PO DAILY [facility] Last Admin: 01/20/18 09:11 Dose: 5 mg Aspirin (Aspirin Chewable) 81 mg PO DAILY [facility] Last Admin: 01/20/18 09:11 Dose: 81 mg Clonazepam (Klonopin) 1 mg PO QID [facility] PRN Reason: Protocol Last Admin: 01/20/18 21:44 Dose: 1 mg Clonidine HCl (Catapres) 0.2 mg PO BID [facility] Last Admin: 01/20/18 17:32 Dose: 0.2 mg Clopidogrel Bisulfate (Plavix) 75 mg PO DAILY [facility] Last Admin: 01/20/18 09:10 Dose: 75 mg Cyclobenzaprine HCl (Flexeril) 10 mg PO TID PRN PRN Reason: Pain, moderate (4-7) Last Admin: 01/21/18 02:15 Dose: 10 mg Diphenhydramine HCl (Benadryl) 25 mg PO HS PRN PRN Reason: Insomnia Last Admin: 01/20/18 00:09 Dose: 25 mg Fenofibrate (Tricor) 145 mg PO DAILY [facility] Last Admin: 01/20/18 09:11 Dose: 145 mg Hydralazine HCl (Apresoline) 25 mg PO TID [facility] Last Admin: 01/20/18 17:32 Dose: 25 mg Hydralazine HCl (Apresoline) 10 mg PO ONCE PRN PRN Reason: Systolic Blood Pressure Last Admin: 01/20/18 16:30 Dose: 10 mg Levetiracetam (Keppra) 500 mg PO TID [facility] Last Admin: 01/20/18 17:32 Dose: 500 mg Levofloxacin (Levaquin) 750 mg PO DAILY [facility] PRN Reason: Protocol Stop: 01/22/18 10:01 Last Admin: 01/20/18 09:10 Dose: 750 mg Nystatin (Nystatin Oral Susp) 5 ml PO QID [facility] Last Admin: 01/20/18 21:44 Dose: 5 ml Ondansetron HCl (Zofran Inj) 4 mg IVP Q4H PRN PRN Reason: Nausea/Vomiting Last Admin: 01/21/18 03:43 Dose: 4 mg Oxycodone/Acetaminophen (Percocet 10/325 Mg Tab) 1 tab PO Q6H PRN PRN Reason: Pain, moderate (4-7) Last Admin: 01/21/18 02:14 Dose: 1 tab Paroxetine HCl (Paxil) 20 mg PO DAILY [facility] Last Admin: 01/20/18 09:11 Dose: 20 mg Polyethylene Glycol (Miralax) 17 gm PO BID [facility] Potassium Chloride (K-Dur 20 Meq Er Tab) 20 meq PO BID [facility] Stop: 01/22/18 08:00 Last Admin: 01/20/18 17:32 Dose: 20 meq - Labs Labs: 01/20/18 06:20 PT 11.5 SECONDS (9.4-12.5) 01/17/18 17:40 INR 1.01 (0.93-1.08) 01/17/18 17:40 APTT 27.4 Seconds (25.1-36.5) 01/17/18 17:40 Assessment and Plan - Assessment and Plan (Free Text) Assessment: Hypertension CP Weakness S/P multiple dental extractions recently Code Stroke in ER: neg w/u CAD, mild on cath 07/15, Neg nuclear stress test 02/12 PPM Hypothyroidism Seizure Disprder Chronic Pain Cervical and Lumbar radiculopathy / S/P back surgery Migraine SINGH Endometriosis UTIs Thal. Minor Plan: PO Hydralazine and clonidine and amlodipine As per Neuro. and Dr. Choudhry. CLARKE as kay. Opener Tender: "Homeless" now.
[2018-01-21] MEDS: Potassium Chloride 20 mEq ER Tab PO SCH ×2 (10:04→18:11)
[2018-01-21] MEDS: Nystatin 100,000 Units/ml Oral Susp 5 ml UD PO SCH ×4 (10:08→22:26)
[2018-01-21] MEDS: POLYETHYLENE GLYCOL 3350 17 GM/Dose PACKET PO SCH ×2 (10:09→18:11)
[2018-01-21] MEDS: levoFLOXacin 750 MG TAB PO SCH (10:12)
--- NOTE | 2018-01-21 10:34 | PN ---
DATE: 01/21/2018 waiting to get stading knee xrays to evaluate extent of arthritis. Johnathon Vargas DO [facility]
--- NOTE | 2018-01-21 12:20 | RAD ---
Date of service: 01/21/2018 PROCEDURE: Bilateral Knee Radiographs. HISTORY: pain in knees COMPARISON: None. FINDINGS: BONES: Right Knee: Normal. No fracture. Left Knee: Normal. No fracture. JOINTS: Right Knee: Normal. No osteoarthritis. Left knee: Mild joint space narrowing medial side SOFT TISSUES: Right Knee: Normal. Left Knee: Normal. JOINT EFFUSION: Right Knee: None. Left Knee: None. OTHER FINDINGS: None. IMPRESSION: Mild joint space narrowing in the medial joint space of the left knee.
[2018-01-22] MEDS: Oxycodone/Acetaminophen 10/325 mg Tab PO PRN ×2 (00:40→12:24)
[2018-01-22] MEDS: Apap-Butalbital-Caffeine 325-50-40mg Tab PO SCH ×2 (05:33→14:05)
--- NOTE | 2018-01-22 07:54 | CP.PCM.PN ---
Subjective - Date & Time of Evaluation Date of Evaluation: 01/22/18 Time of Evaluation: 07:00 - Subjective Subjective: Stable on 3R. BPs better. She feels better. No CP or SOB. V/S noted. PE: Lungs: clear Cor.: S1S2 Abd.: soft Ext.: no edema Neuro.; alert I/O = 2160/4100 Labs noted. ECG 01/18: RSR, LVH, PRWP, NSSTW changes. Echo: Nl LV fx with LVH. See report. Objective - Vital Signs/Intake and Output Vital Signs (last 24 hours): Temp Pulse Resp BP Pulse Ox 97 F L 61 18 154/80 H 97 01/21/18 16:42 01/22/18 06:00 01/21/18 16:42 01/21/18 18:22 01/21/18 16:42 Intake and Output: 01/22/18 01/22/18 06:59 18:59 Intake Total 1800 Output Total 2900 Balance -1100 - Medications Medications: Current Medications Acetaminophen/Butalbital/Caffeine (Fioricet) 1 tab PO Q8 [facility] Last Admin: 01/22/18 05:33 Dose: 1 tab Amlodipine Besylate (Norvasc) 5 mg PO DAILY [facility] Last Admin: 01/21/18 10:05 Dose: 5 mg Aspirin (Aspirin Chewable) 81 mg PO DAILY [facility] Last Admin: 01/21/18 10:04 Dose: 81 mg Clonazepam (Klonopin) 1 mg PO QID [facility] PRN Reason: Protocol Last Admin: 01/21/18 22:26 Dose: 1 mg Clonidine HCl (Catapres) 0.2 mg PO BID [facility] Last Admin: 01/21/18 18:10 Dose: 0.2 mg Clopidogrel Bisulfate (Plavix) 75 mg PO DAILY [facility] Last Admin: 01/21/18 10:06 Dose: 75 mg Cyclobenzaprine HCl (Flexeril) 10 mg PO TID PRN PRN Reason: Pain, moderate (4-7) Last Admin: 01/22/18 00:40 Dose: 10 mg Diphenhydramine HCl (Benadryl) 25 mg PO HS PRN PRN Reason: Insomnia Last Admin: 01/20/18 00:09 Dose: 25 mg Fenofibrate (Tricor) 145 mg PO DAILY [facility] Last Admin: 01/21/18 10:07 Dose: 145 mg Hydralazine HCl (Apresoline) 10 mg PO ONCE PRN PRN Reason: Systolic Blood Pressure Last Admin: 01/20/18 16:30 Dose: 10 mg Hydralazine HCl (Apresoline) 25 mg PO TID [facility] Last Admin: 01/21/18 18:22 Dose: 25 mg Levetiracetam (Keppra) 500 mg PO TID [facility] Last Admin: 01/21/18 18:11 Dose: 500 mg Levofloxacin (Levaquin) 750 mg PO DAILY [facility] PRN Reason: Protocol Stop: 01/22/18 10:01 Last Admin: 01/21/18 10:12 Dose: 750 mg Nystatin (Nystatin Oral Susp) 5 ml PO QID [facility] Last Admin: 01/21/18 22:26 Dose: 5 ml Ondansetron HCl (Zofran Inj) 4 mg IVP Q4H PRN PRN Reason: Nausea/Vomiting Last Admin: 01/21/18 14:23 Dose: 4 mg Oxycodone/Acetaminophen (Percocet 10/325 Mg Tab) 1 tab PO Q6H PRN PRN Reason: Pain, moderate (4-7) Last Admin: 01/22/18 00:40 Dose: 1 tab Paroxetine HCl (Paxil) 20 mg PO DAILY [facility] Last Admin: 01/21/18 10:06 Dose: 20 mg Polyethylene Glycol (Miralax) 17 gm PO BID [facility] Last Admin: 01/21/18 18:11 Dose: 17 gm Potassium Chloride (K-Dur 20 Meq Er Tab) 20 meq PO BID [facility] Stop: 01/22/18 08:00 Last Admin: 01/21/18 18:11 Dose: 20 meq - Labs Labs: 01/20/18 06:20 PT 11.5 SECONDS (9.4-12.5) 01/17/18 17:40 INR 1.01 (0.93-1.08) 01/17/18 17:40 APTT 27.4 Seconds (25.1-36.5) 01/17/18 17:40 Assessment and Plan - Assessment and Plan (Free Text) Assessment: Hypertension CP Weakness S/P multiple dental extractions recently Code Stroke in ER: neg w/u CAD, mild on cath 07/15, Neg nuclear stress test 02/12 PPM Hypothyroidism Seizure Disorder Chronic Pain Cervical and Lumbar radiculopathy / S/P back surgery Migraine SINGH Endometriosis UTIs Thal. Minor OA Plan: PO Hydralazine and clonidine and amlodipine, increase to 10/day As per Neuro., Ortho. and Dr. Zuleta. TRICIA as kay. 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
[2018-01-22] MEDS: Nystatin 100,000 Units/ml Oral Susp 5 ml UD PO SCH ×2 (10:01→14:05)
[2018-01-22] MEDS: POLYETHYLENE GLYCOL 3350 17 GM/Dose PACKET PO SCH (10:01)
[2018-01-22] MEDS: levoFLOXacin 750 MG TAB PO SCH (10:01)
--- NOTE | 2018-01-22 10:18 | CP.PCM.DIS ---
<Doug Wiseman - Last Filed: 01/22/18 10:19> Provider - Provider Date of Admission: 01/19/18 16:01 Attending physician: Felice Zuleta MD Primary care physician: Felice Zuleta MD Consults: Neurology Orthopedic surgery Cardiology Time Spent in preparation of Discharge (in minutes): 35 Hospital Course - Lab Results Lab Results: Micro Results 01/20/18 15:35 Synovial Fluid Body Fluid Culture - Preliminary NO GROWTH AFTER 24 HOURS Most Recent Lab Values WBC 7.4 10^3/ul (4.5-11.0) 01/19/18 06:20 RBC 5.47 10^6/uL (3.5-6.1) 01/19/18 06:20 Hgb 10.1 g/dL (12.0-16.0) L 01/19/18 06:20 Hct 31.5 % (36.0-48.0) L 01/19/18 06:20 MCV 57.6 fl (80.0-105.0) L 01/19/18 06:20 MCH 18.5 pg (25.0-35.0) L 01/19/18 06:20 MCHC 32.1 g/dl (31.0-37.0) 01/19/18 06:20 RDW 18.6 % (11.5-14.5) H 01/19/18 06:20 Plt Count 313 10^3/uL (120.0-450.0) 01/19/18 06:20 MPV 9.4 fl (7.0-11.0) 01/19/18 06:20 Gran % 34.6 % (50.0-68.0) L 01/17/18 17:40 Lymph % (Auto) 53.7 % (22.0-35.0) H 01/17/18 17:40 Weld % (Auto) 9.3 % (1.0-6.0) H 01/17/18 17:40 Eos % (Auto) 2.1 % (1.5-5.0) 01/17/18 17:40 Baso % (Auto) 0.3 % (0.0-3.0) 01/17/18 17:40 Gran # 2.31 (1.4-6.5) 01/17/18 17:40 Lymph # (Auto) 3.6 (1.2-3.4) H 01/17/18 17:40 Weld # (Auto) 0.6 (0.1-0.6) 01/17/18 17:40 Eos # (Auto) 0.1 (0.0-0.7) 01/17/18 17:40 Baso # (Auto) 0.02 K/mm3 (0.0-2.0) 01/17/18 17:40 Retic Count 2.29 % (0.5-1.5) H 01/18/18 07:50 Haptoglobin 82.4 mg/dL (30.0-200.0) 01/18/18 07:50 PT 11.5 SECONDS (9.4-12.5) 01/17/18 17:40 INR 1.01 (0.93-1.08) 01/17/18 17:40 APTT 27.4 Seconds (25.1-36.5) 01/17/18 17:40 Sodium 141 mmol/L (132-148) 01/20/18 06:20 Potassium 3.8 mmol/L (3.6-5.0) 01/20/18 06:20 Chloride 105 mmol/L (98-107) 01/20/18 06:20 Carbon Dioxide 29 mmol/L (21-33) 01/20/18 06:20 Anion Gap 11 (10-20) 01/20/18 06:20 BUN 9 mg/dL (7-21) 01/20/18 06:20 Creatinine 0.8 mg/dl (0.7-1.2) 01/20/18 06:20 Est GFR ( Amer) > 60 01/20/18 06:20 Est GFR (Non-Af Amer) > 60 01/20/18 06:20 POC Glucose (mg/dL) 106 mg/dL (65-110) 01/17/18 17:05 Random Glucose 99 mg/dL (70-110) 01/20/18 06:20 Hemoglobin A1c 5.8 % (4.2-6.5) 01/17/18 17:40 Calcium 8.9 mg/dL (8.4-10.5) 01/20/18 06:20 Iron 107 ug/dL (45-180) 01/18/18 07:50 TIBC 380 ug/dL (265-497) 01/18/18 07:50 % Saturation 28 % (20-55) 01/18/18 07:50 Ferritin 36.0 ng/mL 01/18/18 07:50 Total Bilirubin 0.4 mg/dL (0.2-1.3) 01/19/18 06:20 AST 32 U/L (14-36) 01/19/18 06:20 ALT 26 U/L (7-56) 01/19/18 06:20 Alkaline Phosphatase 63 U/L (38-126) 01/19/18 06:20 Troponin I 0.03 ng/mL D 01/18/18 07:50 NT-Pro-B Natriuret Pep 704 pg/mL (0-450) H 01/17/18 17:40 Total Protein 7.3 g/dL (5.8-8.3) 01/19/18 06:20 Albumin 3.9 g/dL (3.0-4.8) 01/19/18 06:20 Globulin 3.4 gm/dL 01/19/18 06:20 Albumin/Globulin Ratio 1.2 (1.1-1.8) 01/19/18 06:20 Triglycerides 211 mg/dL (35-160) H 01/17/18 17:40 Cholesterol 199 mg/dL (130-200) 01/17/18 17:40 LDL Cholesterol Direct 103 mg/dL (0-129) 01/17/18 17:40 HDL Cholesterol 38 mg/dL (29-60) 01/17/18 17:40 Urine HCG, Qual Negative (NEGATIVE) 01/18/18 20:23 Fluid Type Synovial fluid 01/20/18 15:35 Fluid Source Cancelled 01/20/18 15:35 Fluid Appearance Cancelled 01/20/18 15:35 Fluid WBC Cancelled 01/20/18 15:35 Fluid RBC Cancelled 01/20/18 15:35 Fluid Tot Cell Count Cancelled 01/20/18 15:35 Fluid Neutrophils Cancelled 01/20/18 15:35 Fluid Lymphocytes Cancelled 01/20/18 15:35 Fld Monocyte/Macrophag Cancelled 01/20/18 15:35 Fluid Comment Cancelled 01/20/18 15:35 Synovial WBC 588.0 /uL (0.0-150.0) H 01/20/18 15:35 Synovial RBC 66307.0 /uL (0.0-0.0) H 01/20/18 15:35 Synovial Neutrophils 71.9 % (0-0) H 01/20/18 15:35 Synovial Lymphocytes 28.1 % (0-0) H 01/20/18 15:35 Synov Monos/Macrophage TEST NOT PERFORMED 01/20/18 15:35 Synovial Fluid Comment Red/cloudy 01/20/18 15:35 Blood Type A POSITIVE 01/17/18 17:40 Antibody Screen Negative 01/17/18 17:40 BBK History Checked Patient has bt 01/17/18 17:40 - Hospital Course Hospital Course: Patient is a 47yo female with past medical history of seizures, hypertension, chronic pain, endometriosis, migraines, fibromyalgia, spinal stenosis and Anxiety who presented to [facility] with multiple complaints including lethargy, weakness, dizziness and fluctuating blood pressure. She reported that she fell at home and had lower extremity as well as right arm weakness that was associated with facial numbness. She stated that she recently had extensive dental procedures which included removal of all of her teeth that was a result of an injury/fall back in March. Patient endorsed that since her dental procedure she has had extensive oral infections for which she has been on amoxicillin, levaquin, magic mouthwash and another medication she could not recall. She admits that her leg weakness has been due to low back pain and also reported episodes of left-sided chest pain. On evaluation in the ED, EKG revealed sinus bradycardia, anterior infarct age undetermined, minimal voltage criteria for LVH and CXR revealed no active disease. CT head was negative for acute intracranial abnormalities. Neurology, cardiology and orthopedic surgery were consulted for evaluation. She was not able to get an MRI due to pacemaker placement. CTA Head/Neck revealed no evidence of endoluminal thrombus or occlusion, mild segmental narrowing in the right distal M1 segment likely related to intracranial atherosclerosis/thrombosis, no evidence of hemodynamically significant stenosis in the internal carotid arteries, patent bilateral vertebral arteries. Echocardiogram revealed an LVEF of 63% (see full report). She is on aspirin and started on plavix for stroke prevention however has a documented allergy to statins. Her blood pressure was elevated and medications were adjusted per cardiology recommendations. Ortho was consulted for evaluation of knee pain and synovial fluid sent for analysis; pain thought to be secondary to osteoarthritis in the setting of pseudogout; knee was injected with depo and marcaine. Left Knee X-ray reviewed and revealed osteoarthritis with no fractures/dislocations; Left tibula/fibula xray with no acute fractures/dislocations. PT evaluated the patient and recommended subacute rehabilitation. She was subsequently discharged to [facility]. Discharge Exam - Head Exam Head Exam: ATRAUMATIC, NORMAL INSPECTION, NORMOCEPHALIC - Eye Exam Eye Exam: EOMI. absent: Conjunctival injection, Periorbital swelling, Scleral icterus Pupil Exam: PERRL - ENT Exam ENT Exam: Mucous Membranes Moist - Neck Exam Additional comments: no lymphadenopathy, JVD, tenderness or thyromegaly noted. - Respiratory Exam Respiratory Exam: Clear to PA & Lateral. absent: Accessory Muscle Use, Rales, Rhonchi, Wheezes, Respiratory Distress - Cardiovascular Exam Cardiovascular Exam: RRR, +S1, +S2. absent: Clicks, Diastolic murmur, Gallop, JVD, Rubs - GI/Abdominal Exam GI & Abdominal Exam: Soft. absent: Distended, Firm, Guarding, Rebound, Rigid, Tenderness - Extremities Exam Additional comments: no clubbing, cyanosis or edema - Neurological Exam Neurological exam: Alert, CN II-XII Intact, Oriented x3 - Psychiatric Exam Psychiatric exam: Normal Affect, Normal Mood - Skin Skin Exam: Dry, Intact, Normal Color, Warm Discharge Plan - Discharge Medications Prescriptions: amLODIPine [Norvasc] 5 mg PO BID #60 tab Aspirin [Aspirin Chewable] 81 mg PO DAILY #30 ctb Clopidogrel [Plavix] 75 mg PO DAILY #30 tab hydrALAZINE [Apresoline] 25 mg PO TID #90 tab - Follow Up Plan Condition: FAIR Disposition: TRANSF TO SNF Instructions: Chest Pain, High Blood Pressure (DC), Stroke (DC), Transient Ischemic Attack (DC), Preventing Falls, Dizziness, Nonvertigo, (DC) Additional Instructions: 1. Follow up with your PMD within 1-2 weeks of discharge. 2. Follow up with your dentist within 2 weeks of discharge. 3. Follow up with your orthopedic surgeon within 2 weeks of discharge. 4. Continue to take your medications as prescribed. 5. Return to the emergency room should your condition worsen. Referrals: Felice Zuleta MD [Primary Care Provider] - Johnathon Vargas DO [Staff Provider] - <Felice Zuleta - Last Filed: 01/22/18 19:14> Provider - Provider Date of Admission: 01/19/18 16:01 Attending physician: Felice Zuleta MD Primary care physician: Felice Zuleta MD Hospital Course - Lab Results Lab Results: Micro Results 01/20/18 15:35 Synovial Fluid Body Fluid Culture - Preliminary NO GROWTH AFTER 2 DAYS Most Recent Lab Values WBC 7.4 10^3/ul (4.5-11.0) 01/19/18 06:20 RBC 5.47 10^6/uL (3.5-6.1) 01/19/18 06:20 Hgb 10.1 g/dL (12.0-16.0) L 01/19/18 06:20 Hct 31.5 % (36.0-48.0) L 01/19/18 06:20 MCV 57.6 fl (80.0-105.0) L 01/19/18 06:20 MCH 18.5 pg (25.0-35.0) L 01/19/18 06:20 MCHC 32.1 g/dl (31.0-37.0) 01/19/18 06:20 RDW 18.6 % (11.5-14.5) H 01/19/18 06:20 Plt Count 313 10^3/uL (120.0-450.0) 01/19/18 06:20 MPV 9.4 fl (7.0-11.0) 01/19/18 06:20 Gran % 34.6 % (50.0-68.0) L 01/17/18 17:40 Lymph % (Auto) 53.7 % (22.0-35.0) H 01/17/18 17:40 Weld % (Auto) 9.3 % (1.0-6.0) H 01/17/18 17:40 Eos % (Auto) 2.1 % (1.5-5.0) 01/17/18 17:40 Baso % (Auto) 0.3 % (0.0-3.0) 01/17/18 17:40 Gran # 2.31 (1.4-6.5) 01/17/18 17:40 Lymph # (Auto) 3.6 (1.2-3.4) H 01/17/18 17:40 Weld # (Auto) 0.6 (0.1-0.6) 01/17/18 17:40 Eos # (Auto) 0.1 (0.0-0.7) 01/17/18 17:40 Baso # (Auto) 0.02 K/mm3 (0.0-2.0) 01/17/18 17:40 Retic Count 2.29 % (0.5-1.5) H 01/18/18 07:50 Haptoglobin 82.4 mg/dL (30.0-200.0) 01/18/18 07:50 PT 11.5 SECONDS (9.4-12.5) 01/17/18 17:40 INR 1.01 (0.93-1.08) 01/17/18 17:40 APTT 27.4 Seconds (25.1-36.5) 01/17/18 17:40 Sodium 141 mmol/L (132-148) 01/20/18 06:20 Potassium 3.8 mmol/L (3.6-5.0) 01/20/18 06:20 Chloride 105 mmol/L (98-107) 01/20/18 06:20 Carbon Dioxide 29 mmol/L (21-33) 01/20/18 06:20 Anion Gap 11 (10-20) 01/20/18 06:20 BUN 9 mg/dL (7-21) 01/20/18 06:20 Creatinine 0.8 mg/dl (0.7-1.2) 01/20/18 06:20 Est GFR ( Amer) > 60 01/20/18 06:20 Est GFR (Non-Af Amer) > 60 01/20/18 06:20 POC Glucose (mg/dL) 106 mg/dL (65-110) 01/17/18 17:05 Random Glucose 99 mg/dL (70-110) 01/20/18 06:20 Hemoglobin A1c 5.8 % (4.2-6.5) 01/17/18 17:40 Calcium 8.9 mg/dL (8.4-10.5) 01/20/18 06:20 Iron 107 ug/dL (45-180) 01/18/18 07:50 TIBC 380 ug/dL (265-497) 01/18/18 07:50 % Saturation 28 % (20-55) 01/18/18 07:50 Ferritin 36.0 ng/mL 01/18/18 07:50 Total Bilirubin 0.4 mg/dL (0.2-1.3) 01/19/18 06:20 AST 32 U/L (14-36) 01/19/18 06:20 ALT 26 U/L (7-56) 01/19/18 06:20 Alkaline Phosphatase 63 U/L (38-126) 01/19/18 06:20 Troponin I 0.03 ng/mL D 01/18/18 07:50 NT-Pro-B Natriuret Pep 704 pg/mL (0-450) H 01/17/18 17:40 Total Protein 7.3 g/dL (5.8-8.3) 01/19/18 06:20 Albumin 3.9 g/dL (3.0-4.8) 01/19/18 06:20 Globulin 3.4 gm/dL 01/19/18 06:20 Albumin/Globulin Ratio 1.2 (1.1-1.8) 01/19/18 06:20 Triglycerides 211 mg/dL (35-160) H 01/17/18 17:40 Cholesterol 199 mg/dL (130-200) 01/17/18 17:40 LDL Cholesterol Direct 103 mg/dL (0-129) 01/17/18 17:40 HDL Cholesterol 38 mg/dL (29-60) 01/17/18 17:40 Urine HCG, Qual Negative (NEGATIVE) 01/18/18 20:23 Fluid Type Synovial fluid 01/20/18 15:35 Fluid Source Cancelled 01/20/18 15:35 Fluid Appearance Cancelled 01/20/18 15:35 Fluid WBC Cancelled 01/20/18 15:35 Fluid RBC Cancelled 01/20/18 15:35 Fluid Tot Cell Count Cancelled 01/20/18 15:35 Fluid Neutrophils Cancelled 01/20/18 15:35 Fluid Lymphocytes Cancelled 01/20/18 15:35 Fld Monocyte/Macrophag Cancelled 01/20/18 15:35 Fluid Comment Cancelled 01/20/18 15:35 Synovial WBC 588.0 /uL (0.0-150.0) H 01/20/18 15:35 Synovial RBC 93514.0 /uL (0.0-0.0) H 01/20/18 15:35 Synovial Neutrophils 71.9 % (0-0) H 01/20/18 15:35 Synovial Lymphocytes 28.1 % (0-0) H 01/20/18 15:35 Synov Monos/Macrophage TEST NOT PERFORMED 01/20/18 15:35 Synovial Fluid Comment Red/cloudy 01/20/18 15:35 Blood Type A POSITIVE 01/17/18 17:40 Antibody Screen Negative 01/17/18 17:40 BBK History Checked Patient has bt 01/17/18 17:40 - Hospital Course Hospital Course: Pt seen and examined. I have reviewed the note of the medical office representative and agree with it. I have discussed the assessment and plan with the resident. I have reviewed the patient's labs and medications. She is going to [facility] for rehab. She states she has lost her apartment and is not sure where she will be living. Pain is controlled on medications.
[2018-01-22 10:55] VITALS: RESP 16; TEMP 98.1; O2SAT 100
[2018-01-22 14:08] VITALS: BP 162/79; PULSE 68
--- NOTE | 2018-01-28 06:02 | PQF ---
PROVIDER RESPONSE TEXT: Patient with hypertensive urgency REVIEWER QUERY TEXT: Hypertension Specificity Hypertension is documented in the medical record. Please specify the type of hypertension such as: -Cardiorenal -Crisis -Emergency -Portal -Pulmonary -Secondary (please specify underlying cause) -Urgency -With heart disease -With hypertensive encephalopathy -With renal disease -Other (please specify in the medical record) The patient's Clinical Indicators include: Please specify the type of hypertension with initial KP=530/100 on 01/18/18. Query created by: Deb Zambrano on 01/25/2018 10:26 AM Electronically signed by: Felice Zuleta MD 01/28/2018 5:59 AM
== END 2018-01-22 15:44 | DRG 305 ==
LOC: ED 17:00 → ERH 18:30 → 3RSO 20:20 → OBSVTOIN 01-19 16:01
PROVIDERS: ADMIT Internal Medicine Medical Oncology; ATTEND Internal Medicine Nephrology
PROC: 0S9D3ZZ Drainage of Left Knee Joint, Percutaneous Approach (ICD-10-PCS; principal; 2018-01-20)
PROC: 3E0U33Z Introduction of Anti-inflammatory into Joints, Percutaneous Approach (ICD-10-PCS; 2018-01-20)
PROC: 3E0U3BZ Introduction of Anesthetic Agent into Joints, Percutaneous Approach (ICD-10-PCS; 2018-01-20)
DX: I16.0 Hypertensive urgency (principal); M54.16 Radiculopathy, lumbar region; G40.909 Epilepsy, unspecified, not intractable, without status epilepticus; I25.10 Atherosclerotic heart disease of native coronary artery without angina pectoris; M17.12 Unilateral primary osteoarthritis, left knee; M11.262 Other chondrocalcinosis, left knee; G43.909 Migraine, unspecified, not intractable, without status migrainosus; I67.2 Cerebral atherosclerosis; E03.9 Hypothyroidism, unspecified; N80.9 Endometriosis, unspecified; F43.10 Post-traumatic stress disorder, unspecified; M54.12 Radiculopathy, cervical region; F32.9 Major depressive disorder, single episode, unspecified; F41.9 Anxiety disorder, unspecified; E78.5 Hyperlipidemia, unspecified; D56.3 Thalassemia minor; M79.7 Fibromyalgia; G89.29 Other chronic pain; I45.9 Conduction disorder, unspecified; Z86.73 Personal history of transient ischemic attack (TIA), and cerebral infarction without residual deficits; Z95.0 Presence of cardiac pacemaker; Z85.820 Personal history of malignant melanoma of skin; Z98.1 Arthrodesis status

== ENCOUNTER 2018-07-13 18:45 | Observation (INO) | payer OTHER ==
[2018-07-13 18:45] VITALS: BMI 37.4
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
[2018-07-13 20:18] LABS: BLOOD UREA NITROGEN 18 mg/dL (7-21); CALCIUM 9.5 mg/dL (8.4-10.5); GFR NON-AFRICAN AMERICAN > 60
[2018-07-13 20:33] LABS: ALB/GLOB RATIO 1.2 (1.1-1.8); ALBUMIN 4.5 g/dL (3.0-4.8); ALT/SGPT 28 U/L (7-56); AST/SGOT 44 U/L (14-36); TROPONIN I 0.02 ng/mL
[2018-07-13 20:49] LABS: BASO # 0.03 K/mm3 (0.0-2.0); BASO % 0.4 % (0.0-3.0); EOS # 0.1 (0.0-0.7); GRAN # 3.28 (1.4-6.5); GRAN % 46.1 % (50.0-68.0); HEMOGLOBIN 10.8 g/dL (12.0-16.0); LYMPH # 3.2 (1.2-3.4); MEAN CELL VOLUME 60.2 fl (80.0-105.0); MEAN CORPUSCULAR HGB CONC 31.6 g/dl (31.0-37.0); MONO # 0.5 (0.1-0.6); MONO % 6.5 % (1.0-6.0); PLATELET COUNT 394 10^3/uL (120.0-450.0); RBC 5.68 10^6/uL (3.5-6.1); RED CELL DISTRIBUTION WIDTH 17.5 % (11.5-14.5); WHITE BLOOD COUNT 7.1 10^3/uL (4.5-11.0)
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
[2018-07-14] MEDS: Oxycodone/Acetaminophen 10/325 mg Tab PO PRN ×3 (00:31→14:27)
[2018-07-14 07:10] LABS: BASO # 0.02 K/mm3 (0.0-2.0); BASO % 0.3 % (0.0-3.0); EOS # 0.2 (0.0-0.7); EOS % 2.4 % (1.5-5.0); GRAN # 1.9 (1.4-6.5); GRAN % 30.5 % (50.0-68.0); HEMOGLOBIN 9.6 g/dL (12.0-16.0); LYMPH # 3.7 (1.2-3.4); LYMPH % 59.9 % (22.0-35.0); MEAN CELL VOLUME 60.3 fl (80.0-105.0); MEAN CORPUSCULAR HEMOGLOBIN 18.8 pg (25.0-35.0); MEAN CORPUSCULAR HGB CONC 31.2 g/dl (31.0-37.0); MONO # 0.4 (0.1-0.6); MONO % 6.9 % (1.0-6.0); RBC 5.11 10^6/uL (3.5-6.1); RED CELL DISTRIBUTION WIDTH 17.3 % (11.5-14.5); WHITE BLOOD COUNT 6.2 10^3/uL (4.5-11.0)
[2018-07-14 07:24] LABS: IRON 106 ug/dL (45-180)
[2018-07-14 07:33] LABS: % IRON SATURATION 30 % (20-55); TOTAL IRON BINDING CAPACITY 349 ug/dL (265-497)
[2018-07-14 07:34] LABS: LDL CHOLESTEROL 125 mg/dL (0-129)
[2018-07-14 07:39] LABS: ALB/GLOB RATIO 1.3 (1.1-1.8); ALBUMIN 4.2 g/dL (3.0-4.8); ALT/SGPT 24 U/L (7-56); AST/SGOT 27 U/L (14-36); BLOOD UREA NITROGEN 16 mg/dL (7-21); CALCIUM 9.2 mg/dL (8.4-10.5); GFR NON-AFRICAN AMERICAN > 60; HDL CHOLESTEROL 42 mg/dL (29-60)
[2018-07-14] MEDS: Pantoprazole 40 mg EC Tab PO SCH (07:50)
[2018-07-14] MEDS ORDERED: Bupivacaine 0.5% Inj(30mL) IJ ONE (08:28)
[2018-07-14] MEDS ORDERED: MethylPREDNISolone Depo 40 mg/ml Inj IM ONE (08:28)
--- NOTE | 2018-07-14 09:35 | CARD ---
APPROVED REPORT Date of service: 07/13/2018 EKG Measurement Heart [id number] <Conclusion> Normal sinus rhythm Moderate voltage criteria for LVH, may be normal variant Borderline ECG
--- NOTE | 2018-07-14 10:36 | RAD ---
Date of service: 07/13/2018 HISTORY: chest pain COMPARISON: 01/17/2018 FINDINGS: LUNGS: No active pulmonary disease. PLEURA: No significant pleural effusion identified, no pneumothorax apparent. CARDIOVASCULAR: No aortic atherosclerotic calcification present. Normal cardiac size. No pulmonary vascular congestion. OSSEOUS STRUCTURES: No significant abnormalities. VISUALIZED UPPER ABDOMEN: Normal. OTHER FINDINGS: Dual lead pacemaker IMPRESSION: No active disease.
--- NOTE | 2018-07-14 11:23 | RAD ---
Date of service: 07/14/2018 PROCEDURE: Bilateral Knee Radiographs. HISTORY: md ordered, pt has pain in knees COMPARISON: 01/21/2018 FINDINGS: BONES: Right Knee: Normal. No fracture. Left Knee: Normal. No fracture. JOINTS: Right Knee: Normal. No osteoarthritis. Left knee: Mild joint space narrowing medial side. Unchanged from prior exam SOFT TISSUES: Right Knee: Normal. Left Knee: Normal. JOINT EFFUSION: Right Knee: None. Left Knee: None. OTHER FINDINGS: None. IMPRESSION: Left knee: Mild joint space narrowing medial side. Unchanged from prior exam
[2018-07-14 12:32] LABS: FERRITIN 24.8 ng/mL
[2018-07-14 13:01] LABS: FOLATE 4.8 ng/mL
--- NOTE | 2018-07-14 13:22 | CON ---
DATE: 07/14/2018 REQUESTING PHYSICIAN: Dr. Zuleta. REASON FOR CONSULTATION: Chest pain. HISTORY OF PRESENT ILLNESS: This is a 48-year-old woman known to us from prior admissions with a history of labile hypertension and mild coronary artery disease, who presented to the emergency room with complaints of intermittent left-sided chest pain as well as labile hypertension. She has also been bothered by severe left knee pain as well as joint effusion. She states that she was found to have melanoma on a skin lesion on her face, and this was going to require extensive surgery, but was told this may not be possible until her blood pressure is in better control. She also needs her left knee problems addressed, however, has not been able to do so recently either. PAST MEDICAL HISTORY: Her past history is notable and that she underwent cardiac catheterization less than two years ago, at which time she was found to have mild coronary artery disease. She also had a permanent pacemaker implanted for bradycardia. She has a history of chronic migraines, endometriosis, seizure disorder, and hypothyroidism. There is also a questionable history of spinal stenosis and fibromyalgia. She underwent prior cervical neck fusion, a prior appendectomy, right oophorectomy, a prior arthroscopy of left knee, as well as extensive dental extractions and left foot surgery. MEDICATIONS: Her current medications include hydralazine 25 mg b.i.d., aspirin, Catapres 0.2 mg b.i.d., subcutaneous heparin, Keppra, Norvasc 5 mg b.i.d., Paxil, Percocet, Plavix 75 mg daily, Protonix, and fenofibrate 145 mg daily. SOCIAL HISTORY: She does not smoke or drink. She lives alone. FAMILY HISTORY: Father has a history of heart disease. Mother has Alzheimer's. ALLERGIES: SHE HAS HAD A REACTION IN THE PAST TO ATORVASTATIN WELL REGLAN AND GABAPENTIN. REVIEW OF SYSTEMS: Ten-point review of systems is notable mainly for problems mentioned above. She states she has difficulty ambulating because of her knee issues. PHYSICAL EXAMINATION: GENERAL: She is a middle-aged woman, who appears comfortable at bedrest. VITAL SIGNS: Her blood pressure is 112/60. However, it was 177/78 last evening. Her pulse was 72 and sinus, respirations of 14. She is afebrile. HEENT: Normocephalic, atraumatic. NECK: Supple. No JVD noted. CHEST: Few scattered rhonchi heard. HEART: PMI in normal position. No pathological murmurs or gallops noted. ABDOMEN: Soft, mildly obese, nontender, normoactive bowel sounds. EXTREMITIES: Revealed probable left knee effusion with bilateral lymphedema present. SKIN: Warm and dry. PSYCHIATRIC: Normal mood and affect. NEUROLOGIC: Alert and oriented x3. No gross motor or sensory is appreciable. DIAGNOSTIC DATA: Potassium is 3.6. BUN and creatinine are 16 and 0.8. Three sets of cardiac enzymes are negative. White count is 6.2, hemoglobin and hematocrit are 9.6 and 30.8 with platelet count of 314,000, MCV is 60.3. Cholesterol is 254 with triglycerides of 303, her LDL is 125 with a HDL of 42. IMPRESSION: 1. Chest pain, doubt this is anginal in nature given her mild coronary artery disease and catheterization less than 2 years ago. 2. Labile hypertension, doubt secondary cause. Anxiety appears to play a major role in her life at the present time. This may be having a major contributing factor to her blood pressure swings. 3. Microcytic anemia, probable thalassemia 4. History of permanent pacemaker implant for bradycardia, full details unclear. 5. Rest of the problems are as noted. RECOMMENDATIONS: From a cardiac standpoint, at this time, her current medications should continue. Antihypertensive therapy can be adjusted as needed as an outpatient. No further cardiac workup will be planned at this time, and she had a stress test performed last year which was unremarkable. Reassurance was provided, and she was encouraged to watch for sodium intake carefully as well as lose weight as quickly as possible. Thank you for this consultation. We will be happy to continue to follow. Rivera Guzman MD
--- NOTE | 2018-07-14 13:44 | CP.PCM.DIS ---
<Flower Swartz - Last Filed: 07/14/18 15:35> Provider - Provider Date of Admission: 07/13/18 21:08 Attending physician: Felice Zuleta MD Primary care physician: Dr. Zuleta Consults: 07/13/18 21:54 Physician Consult Routine Comment: Consulting Provider: Wes Harris Consulting Physician: Wes Harris Reason for Consult: chest pain 07/14/18 08:30 Consult [Physician Consult] Routine Comment: Consulting Provider: Johnathon Vargas Consulting Physician: Johnathon Vargas Reason for Consult: knee pain Time Spent in preparation of Discharge (in minutes): 45 Hospital Course - Lab Results Lab Results: Most Recent Lab Values WBC 6.2 10^3/uL (4.5-11.0) 07/14/18 06:30 RBC 5.11 10^6/uL (3.5-6.1) 07/14/18 06:30 Hgb 9.6 g/dL (12.0-16.0) L 07/14/18 06:30 Hct 30.8 % (36.0-48.0) L 07/14/18 06:30 MCV 60.3 fl (80.0-105.0) L 07/14/18 06:30 MCH 18.8 pg (25.0-35.0) L 07/14/18 06:30 MCHC 31.2 g/dl (31.0-37.0) 07/14/18 06:30 RDW 17.3 % (11.5-14.5) H 07/14/18 06:30 Plt Count 314 10^3/uL (120.0-450.0) 07/14/18 06:30 MPV 10.0 fl (7.0-11.0) 07/14/18 06:30 Gran % 30.5 % (50.0-68.0) L 07/14/18 06:30 Lymph % (Auto) 59.9 % (22.0-35.0) H 07/14/18 06:30 [place] % (Auto) 6.9 % (1.0-6.0) H 07/14/18 06:30 Eos % (Auto) 2.4 % (1.5-5.0) 07/14/18 06:30 Baso % (Auto) 0.3 % (0.0-3.0) 07/14/18 06:30 Gran # 1.90 (1.4-6.5) 07/14/18 06:30 Lymph # (Auto) 3.7 (1.2-3.4) H 07/14/18 06:30 [place] # (Auto) 0.4 (0.1-0.6) 07/14/18 06:30 Eos # (Auto) 0.2 (0.0-0.7) 07/14/18 06:30 Baso # (Auto) 0.02 K/mm3 (0.0-2.0) 07/14/18 06:30 Retic Count 2.18 % (0.5-1.5) H 07/14/18 06:30 Sodium 140 mmol/L (132-148) 07/14/18 06:30 Potassium 3.6 mmol/L (3.6-5.0) 07/14/18 06:30 Chloride 107 mmol/L (98-107) 07/14/18 06:30 Carbon Dioxide 26 mmol/L (21-33) 07/14/18 06:30 Anion Gap 10 (10-20) 07/14/18 06:30 BUN 16 mg/dL (7-21) 07/14/18 06:30 Creatinine 0.8 mg/dl (0.7-1.2) 07/14/18 06:30 Est GFR ( Amer) > 60 07/14/18 06:30 Est GFR (Non-Af Amer) > 60 07/14/18 06:30 Random Glucose 102 mg/dL (70-110) 07/14/18 06:30 Hemoglobin A1c 5.3 % (4.2-6.5) 07/14/18 06:30 Calcium 9.2 mg/dL (8.4-10.5) 07/14/18 06:30 Phosphorus 4.0 mg/dL (2.5-4.5) 07/14/18 06:30 Magnesium 2.0 mg/dL (1.7-2.2) 07/14/18 06:30 Iron 106 ug/dL (45-180) 07/14/18 06:30 TIBC 349 ug/dL (265-497) 07/14/18 06:30 % Saturation 30 % (20-55) 07/14/18 06:30 Ferritin 24.8 ng/mL 07/14/18 06:30 Total Bilirubin 0.4 mg/dL (0.2-1.3) 07/14/18 06:30 AST 27 U/L (14-36) 07/14/18 06:30 ALT 24 U/L (7-56) 07/14/18 06:30 Alkaline Phosphatase 67 U/L (38-126) 07/14/18 06:30 Troponin I 0.01 ng/mL 07/14/18 06:30 NT-Pro-B Natriuret Pep 198 pg/mL (0-450) 07/13/18 21:00 Total Protein 7.5 g/dL (5.8-8.3) 07/14/18 06:30 Albumin 4.2 g/dL (3.0-4.8) 07/14/18 06:30 Globulin 3.3 gm/dL 07/14/18 06:30 Albumin/Globulin Ratio 1.3 (1.1-1.8) 07/14/18 06:30 Triglycerides 303 mg/dL (35-160) H 07/14/18 06:30 Cholesterol 254 mg/dL (130-200) H 07/14/18 06:30 LDL Cholesterol Direct 125 mg/dL (0-129) 07/14/18 06:30 HDL Cholesterol 42 mg/dL (29-60) 07/14/18 06:30 Vitamin B12 271 pg/mL (239-931) 07/14/18 06:30 Folate 4.8 ng/mL 07/14/18 06:30 - Hospital Course Hospital Course: Upon Admission 47yo female PMHx seizures, hypertension, anxiety, HLD, chronic pain, endometriosis, bradycardia s/p pacemaker, melanoma, migraines, fibromyalgia, and spinal stenosis presented with left sided chest pain. She described the pain to be located to substernal region, pressure in quality, and constant. Patient stated the pain started 2 days ago with no provoking factors. Patient rated the pain at 6/10 and radiating to her left shoulder. Patient stated that the pain is reproducible when pressing on the left upper ribs and nothing made the pain better or worse. Patient also complained of left knee pain, and stated she was told she needed to get a total knee replacement. Patient denied fevers, chills, cough, SOB, abdominal pain, nausea, vomiting, diarrhea, or urinary symptoms. 12point ROS as per above otherwise negative Hospital Course Patient was admitted to telemetry and cardiology was consulted. Patient's troponin was negative x 3 and the patient had no acute ST changes on her EKG. From cardiac standpoint patient there was no further cardiac workup planned on admission as she had had a stress test performed the year prior which was unremarkable. Patient was encouraged to lower salt intake and lose weight. Patient's HTN medications were to be adjusted outpatient. Patient did complain of knee pain and fluid. Ortho was consulted. B/l knee x-rays showed that the left knee had some mild joint space narrowing on the medial side which was unchanged form prior exams. Patient was injected with Depo-medrol and Marcaine and patient was advised to continue physical therapy. She was also instructed that she should see ortho in office as she is a candidate for Hyalgan injection. Patient clinically improved and was deemed medically optimized for discharge. Discharge Instructions "You are being discharged from [facility]. Please resume all home medications. Please follow up with your PMD Dr. Zuleta on your scheduled appointment on July 20, 2018. Please also follow up with your Ct Technician Dr. Harris on your scheduled appointment on July 15, 2018. Please also follow up with orthopedist Dr. Vargas on your scheduled appointment on July 15, 2018. Please follow a heart healthy diet upon discharge. If symptoms return please visit your nearest Emergency Room." Instructions discussed in detail with patient who understood and agreed. Please note this is a discharge summary. For full hospital record please refer to EMR. Discharge Exam - Head Exam Head Exam: ATRAUMATIC, NORMOCEPHALIC - Eye Exam Eye Exam: EOMI, Normal appearance, PERRL. absent: Conjunctival injection, Scleral icterus Pupil Exam: NORMAL ACCOMODATION - ENT Exam ENT Exam: Mucous Membranes Moist - Neck Exam Neck exam: Full Rom - Respiratory Exam Respiratory Exam: Clear to PA & Lateral, NORMAL BREATHING PATTERN. absent: Accessory Muscle Use, Rales, Rhonchi, Wheezes, Respiratory Distress - Cardiovascular Exam Cardiovascular Exam: RRR, +S1, +S2. absent: Systolic Murmur - GI/Abdominal Exam GI & Abdominal Exam: Normal Bowel Sounds, Soft, Unremarkable. absent: Distended, Firm, Guarding, Rigid, Tenderness - Rectal Exam Rectal Exam: Deferred - Extremities Exam Extremities exam: normal capillary refill, tenderness (knees b/l), pedal pulses present - Back Exam Back exam: NORMAL INSPECTION. absent: rash noted - Neurological Exam Neurological exam: Alert, CN II-XII Intact, Oriented x3 - Psychiatric Exam Psychiatric exam: Normal Affect, Normal Mood - Skin Skin Exam: Dry, Intact, Normal Color, Warm Discharge Plan - Follow Up Plan Condition: STABLE Disposition: HOME/ ROUTINE Instructions: Heart Healthy Diet, Knee Pain (DC), Chest Pain (DC), Chest Pain (GEN) Additional Instructions: You are being discharged from [facility]. Please resume all home medications. Please follow up with your PMD Dr. Zuleta on your scheduled appointment on July 20, 2018. Please also follow up with your Ct Technician Dr. Harris on your scheduled appointment on July 15, 2018. Please also follow up with orthopedist Dr. Vargas on your scheduled appointment on July 15, 2018. Please follow a heart healthy diet upon discharge. If symptoms return please visit your nearest Emergency Room. Referrals: Felice Zuleta MD [Staff Provider] - Johnathon Vargas DO [Staff Provider] - Wes Harris MD [Staff Provider] - <Felice Zuleta - Last Filed: 07/14/18 18:42> Provider - Provider Date of Admission: 07/13/18 21:08 Attending physician: Felice Zuleta MD Consults: 07/13/18 21:54 Physician Consult Routine Comment: Consulting Provider: Wes Harris Consulting Physician: Wes Harris Reason for Consult: chest pain 07/14/18 08:30 Consult [Physician Consult] Routine Comment: Consulting Provider: Johnathon Vargas Consulting Physician: Johnathon Vargas Reason for Consult: knee pain Hospital Course - Lab Results Lab Results: Most Recent Lab Values WBC 6.2 10^3/uL (4.5-11.0) 07/14/18 06:30 RBC 5.11 10^6/uL (3.5-6.1) 07/14/18 06:30 Hgb 9.6 g/dL (12.0-16.0) L 07/14/18 06:30 Hct 30.8 % (36.0-48.0) L 07/14/18 06:30 MCV 60.3 fl (80.0-105.0) L 07/14/18 06:30 MCH 18.8 pg (25.0-35.0) L 07/14/18 06:30 MCHC 31.2 g/dl (31.0-37.0) 07/14/18 06:30 RDW 17.3 % (11.5-14.5) H 07/14/18 06:30 Plt Count 314 10^3/uL (120.0-450.0) 07/14/18 06:30 MPV 10.0 fl (7.0-11.0) 07/14/18 06:30 Gran % 30.5 % (50.0-68.0) L 07/14/18 06:30 Lymph % (Auto) 59.9 % (22.0-35.0) H 07/14/18 06:30 [place] % (Auto) 6.9 % (1.0-6.0) H 07/14/18 06:30 Eos % (Auto) 2.4 % (1.5-5.0) 07/14/18 06:30 Baso % (Auto) 0.3 % (0.0-3.0) 07/14/18 06:30 Gran # 1.90 (1.4-6.5) 07/14/18 06:30 Lymph # (Auto) 3.7 (1.2-3.4) H 07/14/18 06:30 [place] # (Auto) 0.4 (0.1-0.6) 07/14/18 06:30 Eos # (Auto) 0.2 (0.0-0.7) 07/14/18 06:30 Baso # (Auto) 0.02 K/mm3 (0.0-2.0) 07/14/18 06:30 Retic Count 2.18 % (0.5-1.5) H 07/14/18 06:30 Sodium 140 mmol/L (132-148) 07/14/18 06:30 Potassium 3.6 mmol/L (3.6-5.0) 07/14/18 06:30 Chloride 107 mmol/L (98-107) 07/14/18 06:30 Carbon Dioxide 26 mmol/L (21-33) 07/14/18 06:30 Anion Gap 10 (10-20) 07/14/18 06:30 BUN 16 mg/dL (7-21) 07/14/18 06:30 Creatinine 0.8 mg/dl (0.7-1.2) 07/14/18 06:30 Est GFR ( Amer) > 60 07/14/18 06:30 Est GFR (Non-Af Amer) > 60 07/14/18 06:30 Random Glucose 102 mg/dL (70-110) 07/14/18 06:30 Hemoglobin A1c 5.3 % (4.2-6.5) 07/14/18 06:30 Calcium 9.2 mg/dL (8.4-10.5) 07/14/18 06:30 Phosphorus 4.0 mg/dL (2.5-4.5) 07/14/18 06:30 Magnesium 2.0 mg/dL (1.7-2.2) 07/14/18 06:30 Iron 106 ug/dL (45-180) 07/14/18 06:30 TIBC 349 ug/dL (265-497) 07/14/18 06:30 % Saturation 30 % (20-55) 07/14/18 06:30 Ferritin 24.8 ng/mL 07/14/18 06:30 Total Bilirubin 0.4 mg/dL (0.2-1.3) 07/14/18 06:30 AST 27 U/L (14-36) 07/14/18 06:30 ALT 24 U/L (7-56) 07/14/18 06:30 Alkaline Phosphatase 67 U/L (38-126) 07/14/18 06:30 Troponin I 0.01 ng/mL 07/14/18 06:30 NT-Pro-B Natriuret Pep 198 pg/mL (0-450) 07/13/18 21:00 Total Protein 7.5 g/dL (5.8-8.3) 07/14/18 06:30 Albumin 4.2 g/dL (3.0-4.8) 07/14/18 06:30 Globulin 3.3 gm/dL 07/14/18 06:30 Albumin/Globulin Ratio 1.3 (1.1-1.8) 07/14/18 06:30 Triglycerides 303 mg/dL (35-160) H 07/14/18 06:30 Cholesterol 254 mg/dL (130-200) H 07/14/18 06:30 LDL Cholesterol Direct 125 mg/dL (0-129) 07/14/18 06:30 HDL Cholesterol 42 mg/dL (29-60) 07/14/18 06:30 Vitamin B12 271 pg/mL (239-931) 07/14/18 06:30 Folate 4.8 ng/mL 07/14/18 06:30 - Hospital Course Hospital Course: Pt seen and examined by me. I have reviewed the note of the associate medical director and I agree with it. I have discussed the assessment and plan with the resident. I have reviewed the medications and the last labs. Pt was hx of labile HTN. She has anxiety. She was living in [facility] and now has moved to [place]. She is going to need surgery for her skin cancer. She was seen by Ortho for her L knee pain due to OA. I spoke to Cardiology and she has been cleared for discharge. Her troponins have been negative.
--- NOTE | 2018-07-14 13:51 | CON ---
DATE: 07/14/2018 HISTORY OF PRESENT ILLNESS: A 48-year-old female with left knee pain. Last x-rays done of the knees were back in 01/21/2018 which showed a decreased joint space at the medial side of the left knee consistent with osteoarthritis with mild varus. The pain is at that left knee with a mild effusion. Also, get her through the painful episode that she has been having for last couple of weeks. I injected her with Depo-Medrol and Marcaine. Hopefully, she will be able to go through therapy with a little less pain, and I told her I will see her in the office because she is a candidate for the Hyalgan injection that is a viscous liquid that will help her arthritic pain and will last at least six months just to avoid surgery. FINAL DIAGNOSIS: Osteoarthritis, left greater than the right knee, mainly on the medial joint line of the left knee. I injected her with Depo-Medrol and Marcaine today which is 07/14/2018. Johnathon Vargas DO
[2018-07-14 23:30] VITALS: O2SAT 99
[2018-07-15] MEDS: Oxycodone/Acetaminophen 10/325 mg Tab PO PRN (05:15)
[2018-07-15] MEDS: Pantoprazole 40 mg EC Tab PO SCH (05:16)
[2018-07-15 07:13] LABS: BASO # 0.03 K/mm3 (0.0-2.0); BASO % 0.6 % (0.0-3.0); EOS # 0.2 (0.0-0.7); EOS % 3.6 % (1.5-5.0); GRAN # 1.83 (1.4-6.5); GRAN % 34.2 % (50.0-68.0); HEMOGLOBIN 9.9 g/dL (12.0-16.0); LYMPH # 2.9 (1.2-3.4); LYMPH % 54.3 % (22.0-35.0); MEAN CELL VOLUME 60.3 fl (80.0-105.0); MEAN CORPUSCULAR HEMOGLOBIN 18.8 pg (25.0-35.0); MEAN CORPUSCULAR HGB CONC 31.1 g/dl (31.0-37.0); MONO # 0.4 (0.1-0.6); MONO % 7.3 % (1.0-6.0); PLATELET COUNT 321 10^3/uL (120.0-450.0); RBC 5.27 10^6/uL (3.5-6.1); RED CELL DISTRIBUTION WIDTH 17.4 % (11.5-14.5); WHITE BLOOD COUNT 5.3 10^3/uL (4.5-11.0)
[2018-07-15 07:37] LABS: ALB/GLOB RATIO 1.2 (1.1-1.8); ALBUMIN 4.1 g/dL (3.0-4.8); ALT/SGPT 31 U/L (7-56); AST/SGOT 39 U/L (14-36); BLOOD UREA NITROGEN 15 mg/dL (7-21); CALCIUM 9.4 mg/dL (8.4-10.5); GFR NON-AFRICAN AMERICAN > 60
[2018-07-15 07:42] VITALS: RESP 18; TEMP 97
[2018-07-15 09:20] VITALS: BP 135/72
[2018-07-15 12:13] VITALS: PULSE 74
--- NOTE | 2018-07-15 23:32 | DS ---
HISTORY OF PRESENT ILLNESS: This is a 48-year-old female who had come into the hospital because of elevated blood pressure. Her blood pressure did improve. She also was having atypical chest pain. She was seen by Dr. Guzman and cleared to be discharged yesterday. She started having dizziness and had an elevated blood pressure and she stayed in the hospital longer. The patient this morning feels well. She has no complaints of any chest pain or shortness of breath. Her blood pressure has improved. Her blood pressure was 135/72. She says her knee was having pain, even though she received an injection by Dr. Vargas. The patient had injection to the left knee. I did offer her subacute rehab, but she prefers to go home because she is to follow up with outside of this area. PHYSICAL EXAMINATION: VITAL SIGNS: Temperature is 97, pulse of 73, blood pressure 100/55, respirations 18, and O2 saturation 99%. GENERAL: The patient is lying in bed, flat, comfortable. HEENT: No oral lesion. Anicteric sclerae. Moist mucosa. NECK: No JVD, adenopathy, or thyromegaly. CARDIOVASCULAR: S1 and S2, regular. No murmurs, rubs, or gallops. LUNGS: Clear to auscultation bilaterally. No wheeze, rales, or rhonchi. ABDOMEN: Bowel sounds are positive, soft, nontender and nondistended. EXTREMITIES: No cyanosis, clubbing or edema. ASSESSMENT: 1. Chest pain atypical, resolved. 2. Hypertension. 3. Left knee pain. 4. Anxiety. PLAN: The patient is currently comfortable. She is going to be discharged home today. Please see the discharge summary that was also done yesterday. She is currently comfortable. She is able to ambulate. She was on hydralazine at home. She is on aspirin daily for her coronary disease. She is on Norvasc for hypertension. She has been on Klonopin in the past. She is taking Keppra for her seizures. CONDITION: Stable. ACTIVITIES: Increase as tolerated. FOLLOWUP: Follow up with Dr. Zuleta in 1-2 weeks. Felice Zuleta MD
== END 2018-07-15 12:16 | disposition home or self-care (01) ==
LOC: ED 18:45 → ERH 21:08 → 2RNO 23:45
PROVIDERS: ADMIT Internal Medicine; ATTEND Internal Medicine Nephrology
DX: R07.89 Other chest pain (principal); I12.9 Hypertensive chronic kidney disease with stage 1 through stage 4 chronic kidney disease, or unspecified chronic kidney disease; N18.9 Chronic kidney disease, unspecified; Z85.820 Personal history of malignant melanoma of skin; D50.9 Iron deficiency anemia, unspecified; D56.3 Thalassemia minor; E03.9 Hypothyroidism, unspecified; E78.5 Hyperlipidemia, unspecified; F43.10 Post-traumatic stress disorder, unspecified; G40.909 Epilepsy, unspecified, not intractable, without status epilepticus; G43.909 Migraine, unspecified, not intractable, without status migrainosus; I25.10 Atherosclerotic heart disease of native coronary artery without angina pectoris; M17.12 Unilateral primary osteoarthritis, left knee; M48.00 Spinal stenosis, site unspecified; M79.7 Fibromyalgia; Z82.0 Family history of epilepsy and other diseases of the nervous system; Z82.49 Family history of ischemic heart disease and other diseases of the circulatory system; Z86.73 Personal history of transient ischemic attack (TIA), and cerebral infarction without residual deficits; Z87.440 Personal history of urinary (tract) infections; Z90.49 Acquired absence of other specified parts of digestive tract; Z90.721 Acquired absence of ovaries, unilateral; Z95.0 Presence of cardiac pacemaker; Z98.1 Arthrodesis status
CPT/HCPCS: 20610; 36415; 71045; 73565; 80053; 80061; 80177; 81025; 82607; 82728; 82746; 83036; 83540; 83550; 83735; 83880; 84100; 84484; 85025; 85044; 93005; 99285; G0378; J0360; J1644